=== PATIENT | male | born 1940 ===

== ENCOUNTER 2022-02-26 13:26 | Inpatient (IN) | payer MEDICARE, OTHER ==
[~2022-02-26] VITALS: Ht 165.1 cm; Wt 91.6 kg
--- NOTE | 2022-02-26 13:45 | NUR ---
Admission Note with Justification for Admission to [facility] Patient admitted to [facility] for protective oversight for emergency stabilization of acute psychiatric crisis. Pt admitted from: [facility] Mode of arrival: EMS Accompanied By: EMS Precipitating behaviors that initiated intake and admission: thinks he's being trapped in a room, anxious, bizarre thought processes, hallucinating, refusing meds & cares, convinced there was a snake in the room, agitated, grabbed nurse's hand Description of failure of out patient attempts at stabilization in previous setting list behavior and medication trials: ER & hospital stay, zyprexa PRN, physician recommending in pt mental health tx Behaviors and assessment findings upon admission: Pt irritable upon admission, but remained calm and was cooperative with assessment. Pt only wished to be left alone so he could continue sleeping. Pt has several bruises and scabs. He is oriented to self only and not very willing to answer question. Pt c/o that he's hungry because he "got no lunch". Pt was given snacks and coke per his request. He was left to rest quietly in his room. Will continue to monitor. Plan: Admit for protective oversight for adjustment and stabilization of medications, behaviors and mood. Intense treatment regimen including groups, medication adjustments, therapy, consistent regimen for ADL's, self care, and sleep hygiene. Daily monitoring by Inpatient staff, Psychiatry, and Medical Physician.
[2022-02-26] MEDS ORDERED: MAGNESIUM HYDROXIDE 2,400 MG/30 ML ORAL.SUSP. PO PRN (14:15)
[2022-02-26] MEDS ORDERED: METHYL SALICYLATE/MENTHOL TOPICAL OINTMENT 57GM TUBE. TP PRN (14:15)
[2022-02-26] MEDS ORDERED: MAG HYDROX/AL HYDROX/SIMETH 30 ML ORAL.SUSP PO PRN (14:15)
[2022-02-26] MEDS ORDERED: ENOX40DI SQ (14:51)
[2022-02-26] MEDS ORDERED: ALBU2.5V14 NEB (14:51)
[2022-02-26] MEDS ORDERED: HYDR-2155 PO (14:51)
[2022-02-26] MEDS ORDERED: METO50TA6 PO (14:51)
[2022-02-26] MEDS ORDERED: PANTOPRAZOLE PO (14:51)
[2022-02-26] MEDS ORDERED: LEVO750T5 PO (14:51)
[2022-02-26] MEDS ORDERED: IPRA3AMP29 NEB (14:51)
[2022-02-26] MEDS ORDERED: OLAN5TAB7 PO (14:51)
[2022-02-26] MEDS ORDERED: ASPIRIN PO (14:51)
[2022-02-26] MEDS ORDERED: DILT30TA26 PO (14:51)
[2022-02-26] MEDS ORDERED: NICO1PAT21 TD (14:51)
[2022-02-26] MEDS: NICOTINE 21MG PATCH. TD SCH (15:00)
[2022-02-26 15:45] VITALS: BP 135/92
[2022-02-26 15:57] LABS: CLARITY,URINE CLEAR; COLOR,URINE YELLOW; GLUCOSE,URINE NEG (NEG)
[2022-02-26 15:58] LABS: NITRITE,URINE NEG (NEG); RBC,URINE 0 /HPF (0-2); UROBILINOGEN,URINE 0.2 mg/dL (0.2 mg/dL)
[2022-02-26 16:00] LABS: BACTERIA,URINE 0 /HPF (0-FEW); SQUAMOUS EPITHELIAL CELL,UR OCC /LPF; WBC,URINE OCC /HPF (0-4)
[2022-02-26] MEDS: dilTIAZem HCL 30 MG TABLET PO SCH (17:31)
[2022-02-26] MEDS: IPRATROPIUM/ALBUTEROL 20/100mcg/INH INHALER. INH SCH ×2 (17:31→21:08)
--- NOTE | 2022-02-26 19:28 | NUR ---
Patient has been provided with Practical Counseling for tobacco cessation. It included a face to face interaction and the following was discussed: Recognizing danger situations, Developing coping skills,Basic cessation information. Will follow for discharge needs and discharge planning.
[2022-02-26] MEDS: HYDROcodone/APAP 5/325MG 1 TAB TABLET PO PRN (20:54)
[2022-02-26] MEDS: METOPROLOL TART IMMED RELEASE 50 MG TABLET PO SCH (20:54)
--- NOTE | 2022-02-26 21:30 | PDOC ---
Exam Note: Christiano Note: Please also refer to the separate dictated note~for this date of service dictated separately.~Patient seen individually. Discussed the patient with Nursing staff reviewed the chart.~Reviewed interim history and current functioning. Reviewed vital signs,~Labs/ Radiology~and current medications noted below. Continue current treatment with the changes noted in the dictated addendum note Assessment: Vital Signs/I&O: Vital Signs Date Time Temp Pulse Resp B/P (MAP) Pulse Ox O2 Delivery O2 Flow Rate FiO2 02/26/22 20:54 84 135/92 02/26/22 20:54 92 02/26/22 15:45 98.4 20 2.0 Labs: Laboratory Tests Test 02/26/22 14:50 Urine Collection Type Clean catch Urine Color Yellow Urine Clarity Clear Urine pH 7.0 Urine Specific Viola 1.015 Urine Protein Neg (NEG-TRACE) Urine Glucose (UA) Neg mg/dL (NEG) Urine Ketones (Stick) Neg mg/dL (NEG) Urine Blood Neg (NEG) Urine Nitrite Neg (NEG) Urine Bilirubin Neg (NEG) Urine Urobilinogen Dipstick 0.2 mg/dL (0.2 mg/dL) Urine Leukocyte Esterase Neg (NEG) Urine RBC 0 /HPF (0-2) Urine WBC Occ /HPF (0-4) Urine Squamous Epithelial Cells Occ /LPF Urine Bacteria 0 /HPF (0-FEW) Urine Mucus Slight /LPF Current Medications: Meds: Current Medications Medications (Trade) Dose Ordered Sig/Sameer Route PRN Reason Start Time Stop Time Status Last Admin Dose Admin Diltiazem HCl (Cardizem) 90 mg Q6HRS PO 02/26/22 18:00 02/26/22 17:31 Acetaminophen/ Hydrocodone Bitart (Lortab 5/325) 1 tab PRN Q4HRS PRN PO PAIN 02/26/22 15:45 02/26/22 20:54 Albuterol/ Ipratropium (Combivent Respimat 20-100 Mcg) 1 puff Q6HRS INH 02/26/22 18:00 02/26/22 21:08 Metoprolol Tartrate (Lopressor) 50 mg BID PO 02/26/22 21:00 02/26/22 20:54 Olanzapine (ZyPREXA ZYDIS) 5 mg PRN Q6HRS PRN PO ANXIETY / AGITATION 02/26/22 15:45 02/26/22 20:54 I have reviewed the current psychotropics carefully including drug interactions. Risk benefit ratio favors no change other than as noted in my dictated progress note. HONEY WRIGHT MD Feb 26, 2022 21:30
--- NOTE | 2022-02-27 00:39 | NUR ---
Nursing Note Pt agitated and short of breath. In his room yells intermittently that he wants a knockout pills. Pt medicated with zydis and lortab for pain at HS. Sitting on edge of bed rocking back and forth. Lungs are very coarse with crackles but sats are good 96%. Pt cites his multitude of maladies this pm, stating his main issue is narcolepsy and that we all need to understand that he becomes totally incapacitated when it strikes. PT difficult to redirect is loud and irritable, threatens to become combative. Wheel chair at the side of the bed.
--- NOTE | 2022-02-27 05:33 | NUR ---
Nursing Note Pt refused cardizem last night and this am. States "Don't wake my ass up to just take a blood pressure pill, I need more sleep and you guys are assholes, get the fuck out of here!!! " Educated patient on the consequences of refusing cardiac meds, no evidence of learning, pt rolled over and said "fuck off" and went back to sleep.
[2022-02-27 06:25] VITALS: BP 153/98
[2022-02-27 06:31] LABS: BASO % 1 % (0-3); EOS # 0.1 x10^3/uL (0.0-0.7); EOS % 2 % (0-3); HEMATOCRIT 38.7 % (39.0-53.0); HEMOGLOBIN 12.3 g/dL (13.0-17.5); LYMPH # 1.1 x10^3/uL (1.0-4.8); LYMPH % 19 % (24-48); MEAN CORPUSCULAR HEMOGLOBIN 29 pg (25-35); MEAN CORPUSCULAR HGB CONC 32 g/dL (31-37); MEAN CORPUSCULAR VOLUME 92 fL (79-100); MONO # 0.6 x10^3/uL (0.0-1.1); MONO % 11 % (0-9); NEUT # 4.1 x10^3uL (1.8-7.7); NEUT % 68 % (31-73); PLATELET COUNT 304 x10^3/uL (140-400); RED BLOOD COUNT 4.19 x10^6/uL (4.30-5.70); RED CELL DISTRIBUTION WIDTH 15.4 % (11.5-14.5)
[2022-02-27 06:48] LABS: ALBUMIN 2.5 g/dL (3.4-5.0); ALBUMIN/GLOBULIN RATIO 0.7 (1.0-1.7); CALCIUM 8.8 mg/dL (8.5-10.1); CREATININE 0.8 mg/dL (0.7-1.3); GFR 92.8; MAGNESIUM 1.7 mg/dL (1.8-2.4); POTASSIUM 3.7 mmol/L (3.5-5.1); TOTAL BILIRUBIN 0.3 mg/dL (0.2-1.0); TOTAL PROTEIN 5.9 g/dL (6.4-8.2)
[2022-02-27] MEDS: PANTOPRAZOLE 40 MG TABLET. PO SCH (08:25)
[2022-02-27] MEDS: ASPIRIN ENTERIC COATED 81 MG TABLET.DR. PO SCH (08:27)
[2022-02-27] MEDS: dilTIAZem HCL 30 MG TABLET PO SCH ×5 (08:27→20:32)
[2022-02-27] MEDS: METOPROLOL TART IMMED RELEASE 50 MG TABLET PO SCH ×2 (08:27→20:32)
[2022-02-27] MEDS: levoFLOXacin 750 MG TABLET PO SCH (08:27)
[2022-02-27] MEDS: ENOXAPARIN 40 MG/0.4 ML SYRINGE. SQ SCH (08:28)
[2022-02-27] MEDS: NICOTINE 21MG PATCH. TD SCH (08:29)
[2022-02-27] MEDS: IPRATROPIUM/ALBUTEROL 20/100mcg/INH INHALER. INH SCH ×4 (08:56→20:30)
[2022-02-27] MEDS ORDERED: NICOTINE 21MG PATCH. TD SCH (09:00)
--- NOTE | 2022-02-27 09:45 | NUR ---
ACTIVITY THERAPY ASSESSMENT completed based on notes, observation and interview. Pt was sitting in his wheelchair in his room. Pt was irritable and resistive towards assessment questions with GLAZE MIXER. GLAZE MIXER attempted to orient pt to groups offered on [facility] but remained irritable and disinterested in groups. Pt was demanding at the beginning of assessment and expressed that he was displeased with staff. Pt repeated a couple of times that he wants to leave and GLAZE MIXER assured him that this is a short term stay. Pt was not pleased with this answer. GLAZE MIXER was unable to determine pt's leisure interests as he said he would not enjoy doing anything here. Pt was able to answer orientation questions correctly. Pt reported that he has no support system. Pt remained irritable throughout assessment and requested coffee and an ensure. GLAZE MIXER will check with RN about these items. Per notes pt remains irritable, cursing at staff, and is demanding. Initial goal aimed to increase stress management and relaxation skills. Pt will participate in at least three Activity Therapy sessions before discharge.
[2022-02-27 13:12] LABS: THYROXINE 6.7 ug/dL (4.5-12.0)
[2022-02-27 14:39] VITALS: BP 136/87
[2022-02-27 14:40] VITALS: BP_SYST 112; BP_SYST 121; BP_DIAS 70; BP_DIAS 71
[2022-02-27 15:28] VITALS: BP 106/72
[2022-02-27 15:43] LABS: CHOLESTEROL/HDL RATIO 3.5; THYROID STIM HORMONE (TSH) 1.587 uIU/mL (0.358-3.740)
--- NOTE | 2022-02-27 16:01 | RAD ---
EXAM: XR HIP (WITH OR WITHOUT PELVIS)LEFT 1 VIEW, XR FEMUR_LEFT 1 VIEW 02/27/2022 2:37 PM CLINICAL INDICATION: Fall, left femur fracture COMPARISON: None TECHNIQUE: AP view of the pelvis and AP view of the left hip. AP and lateral views of the left femur . FINDINGS: Left hip: The bones are demineralized. There is a left hip prosthesis in appropriate alignment. No di splaced periprosthetic fracture. There is mild right hip joint space narrowing. The pubic symphysis a nd sacroiliac joints are unremarkable. There are interbody grafts in the lower lumbar spine. Left femur: There is a left hip prosthesis in appropriate alignment. No acute fracture. There is smog technician alissa appearing heterotopic ossification at the medial femoral neck region. Alignment at the knee is ma intained. No focal soft tissue abnormality. IMPRESSION: Left hip prosthesis. No acute osseous abnormality in left hip for left femur. Electronically signed by: Meg Erickson MD (02/27/2022 3:58 PM) [id number]
--- NOTE | 2022-02-27 16:01 | RAD ---
EXAM: XR HIP (WITH OR WITHOUT PELVIS)LEFT 1 VIEW, XR FEMUR_LEFT 1 VIEW 02/27/2022 2:37 PM CLINICAL INDICATION: Fall, left femur fracture COMPARISON: None TECHNIQUE: AP view of the pelvis and AP view of the left hip. AP and lateral views of the left femur . FINDINGS: Left hip: The bones are demineralized. There is a left hip prosthesis in appropriate alignment. No di splaced periprosthetic fracture. There is mild right hip joint space narrowing. The pubic symphysis a nd sacroiliac joints are unremarkable. There are interbody grafts in the lower lumbar spine. Left femur: There is a left hip prosthesis in appropriate alignment. No acute fracture. There is buffer chrome alissa appearing heterotopic ossification at the medial femoral neck region. Alignment at the knee is ma intained. No focal soft tissue abnormality. IMPRESSION: Left hip prosthesis. No acute osseous abnormality in left hip for left femur. Electronically signed by: Meg Erickson MD (02/27/2022 3:58 PM) [id number]
--- NOTE | 2022-02-27 16:13 | NUR ---
Nurse Day Shift Note: Pt presents in a tired manner for morning medication and assessment. Pt was falling asleep while sitting up eating breakfast. Pt ate 50% breakfast, 100% lunch. Pt has been noted to spend time resting in his room and wheeling himself in the hallways today. Pt presents with demanding communication at times. Pt is able to make needs known to staff. Pt refuses to wear his yellow socks and demands to wear the red color socks. It was explained that we do not have the red socks in his size. Pt was educated that he needs to wear his yellow socks, but refuses. Pt self-reports having narcolepsy. Pt will be speaking to you and then fall asleep mid sentence. It has been observed throughout the shift that the pt will work himself up and demand a nurse to be by his side. Pt states he is having a panic attack and needs a nurse with him. Pt was observed and therapeutically communicated with during a self-reported panic attack. Pt 's vitals are WNL. Pt slept 1.75 hours last night. Will continue to monitor.
--- NOTE | 2022-02-27 21:48 | PDOC ---
Exam Note: Christiano Note: Please also refer to the separate dictated note~for this date of service dictated separately.~Patient seen individually. Discussed the patient with Nursing staff reviewed the chart.~Reviewed interim history and current functioning. Reviewed vital signs,~Labs/ Radiology~and current medications noted below. Continue current treatment with the changes noted in the dictated addendum note Assessment: Vital Signs/I&O: Vital Signs Date Time Temp Pulse Resp B/P (MAP) Pulse Ox O2 Delivery O2 Flow Rate FiO2 02/27/22 20:32 90 155/83 02/27/22 15:28 97.9 22 94 Room Air 02/26/22 15:45 2.0 I & O 02/26/22 02/26/22 02/27/22 15:00 23:00 07:00 Intake Total 480 ml Balance 480 ml Labs: Laboratory Tests Test 02/27/22 05:52 White Blood Count 6.0 x10^3/uL (4.0-11.0) Red Blood Count 4.19 x10^6/uL (4.30-5.70) L Hemoglobin 12.3 g/dL (13.0-17.5) L Hematocrit 38.7 % (39.0-53.0) L Mean Corpuscular Volume 92 fL (79-100) Mean Corpuscular Hemoglobin 29 pg (25-35) Mean Corpuscular Hemoglobin Concent 32 g/dL (31-37) Red Cell Distribution Width 15.4 % (11.5-14.5) H Platelet Count 304 x10^3/uL (140-400) Neutrophils (%) (Auto) 68 % (31-73) Lymphocytes (%) (Auto) 19 % (24-48) L Monocytes (%) (Auto) 11 % (0-9) H Eosinophils (%) (Auto) 2 % (0-3) Basophils (%) (Auto) 1 % (0-3) Neutrophils # (Auto) 4.1 x10^3uL (1.8-7.7) Lymphocytes # (Auto) 1.1 x10^3/uL (1.0-4.8) Monocytes # (Auto) 0.6 x10^3/uL (0.0-1.1) Eosinophils # (Auto) 0.1 x10^3/uL (0.0-0.7) Basophils # (Auto) 0.0 x10^3/uL (0.0-0.2) D-Dimer (Vandana) 1.69 mg/L (0.00-0.50) H Sodium Level 141 mmol/L (136-145) Potassium Level 3.7 mmol/L (3.5-5.1) Chloride Level 107 mmol/L (98-107) Carbon Dioxide Level 25 mmol/L (21-32) Anion Gap 9 (6-14) Blood Urea Nitrogen 18 mg/dL (8-26) Creatinine 0.8 mg/dL (0.7-1.3) Estimated GFR (Cockcroft-Gault) 92.8 BUN/Creatinine Ratio 23 (6-20) H Glucose Level 95 mg/dL (70-99) Calcium Level 8.8 mg/dL (8.5-10.1) Magnesium Level 1.7 mg/dL (1.8-2.4) L Iron Level 29 ug/dL (65-175) L Total Iron Binding Capacity 233 ug/dL (250-450) L Iron Saturation 12 % (15-34) L Total Bilirubin 0.3 mg/dL (0.2-1.0) Aspartate Amino Transferase (AST) 14 U/L (15-37) L Alanine Aminotransferase (ALT) 23 U/L (16-63) Alkaline Phosphatase 112 U/L (46-116) Total Protein 5.9 g/dL (6.4-8.2) L Albumin 2.5 g/dL (3.4-5.0) L Albumin/Globulin Ratio 0.7 (1.0-1.7) L Triglycerides Level 73 mg/dL (0-150) Cholesterol Level 118 mg/dL (0-200) LDL Cholesterol, Calculated 69 mg/dL (0-100) VLDL Cholesterol, Calculated 15 mg/dL (0-40) Non-HDL Cholesterol Calculated 84 mg/dL (0-129) HDL Cholesterol 34 mg/dL (40-60) L Cholesterol/HDL Ratio 3.5 25-Hydroxy Vitamin D Total 21.1 ng/mL (30-100) L Thyroid Stimulating Hormone (TSH) 1.587 uIU/mL (0.358-3.740) Thyroxine (T4) 6.7 ug/dL (4.5-12.0) Total Triiodothyronine (TT3) 91 ng/dL (71-180) Treponema pallidum Antibody Nonreactive (Nonreactive) Current Medications: Meds: Laboratory Tests Test 02/27/22 05:52 White Blood Count 6.0 x10^3/uL Red Blood Count 4.19 x10^6/uL Hemoglobin 12.3 g/dL Hematocrit 38.7 % Mean Corpuscular Volume 92 fL Mean Corpuscular Hemoglobin 29 pg Mean Corpuscular Hemoglobin Concent 32 g/dL Red Cell Distribution Width 15.4 % Platelet Count 304 x10^3/uL Neutrophils (%) (Auto) 68 % Lymphocytes (%) (Auto) 19 % Monocytes (%) (Auto) 11 % Eosinophils (%) (Auto) 2 % Basophils (%) (Auto) 1 % Neutrophils # (Auto) 4.1 x10^3uL Lymphocytes # (Auto) 1.1 x10^3/uL Monocytes # (Auto) 0.6 x10^3/uL Eosinophils # (Auto) 0.1 x10^3/uL Basophils # (Auto) 0.0 x10^3/uL D-Dimer (Vandana) 1.69 mg/L Sodium Level 141 mmol/L Potassium Level 3.7 mmol/L Chloride Level 107 mmol/L Carbon Dioxide Level 25 mmol/L Anion Gap 9 Blood Urea Nitrogen 18 mg/dL Creatinine 0.8 mg/dL Estimated GFR (Cockcroft-Gault) 92.8 BUN/Creatinine Ratio 23 Glucose Level 95 mg/dL Calcium Level 8.8 mg/dL Magnesium Level 1.7 mg/dL Iron Level 29 ug/dL Total Iron Binding Capacity 233 ug/dL Iron Saturation 12 % Total Bilirubin 0.3 mg/dL Aspartate Amino Transf (AST/SGOT) 14 U/L Alanine Aminotransferase (ALT/SGPT) 23 U/L Alkaline Phosphatase 112 U/L Total Protein 5.9 g/dL Albumin 2.5 g/dL Albumin/Globulin Ratio 0.7 Triglycerides Level 73 mg/dL Cholesterol Level 118 mg/dL LDL Cholesterol, Calculated 69 mg/dL VLDL Cholesterol, Calculated 15 mg/dL Non-HDL Cholesterol Calculated 84 mg/dL HDL Cholesterol 34 mg/dL Cholesterol/HDL Ratio 3.5 25-Hydroxy Vitamin D Total 21.1 ng/mL Thyroid Stimulating Hormone (TSH) 1.587 uIU/mL Thyroxine (T4) 6.7 ug/dL Total Triiodothyronine 91 ng/dL Treponema pallidum Antibody Nonreactive Current Medications Medications (Trade) Dose Ordered Sig/Sameer Route PRN Reason Start Time Stop Time Status Last Admin Dose Admin Acetaminophen (Tylenol) 650 mg PRN Q6HRS PRN PO MILD PAIN / TEMP > 100.3'F 02/26/22 14:15 Multi-Ingredient Ointment (Analgesic [place]) 1 omer PRN QID PRN TP MUSCLE PAIN 02/26/22 14:15 Al Hydroxide/Mg Hydroxide (Mylanta Plus Xs) 15 ml PRN AFTMEALHC PRN PO DYSPEPSIA 02/26/22 14:15 Magnesium Hydroxide (Milk Of Magnesia) 2,400 mg PRN QHS PRN PO CONSTIPATION 02/26/22 14:15 Nicotine (Nicoderm Cq 21mg Patch) 1 patch DAILY TD 02/26/22 15:00 02/27/22 08:29 Diltiazem HCl (Cardizem) 90 mg Q6HRS PO 02/26/22 18:00 02/27/22 05:27 DC 02/26/22 17:31 Enoxaparin Sodium (Lovenox 40mg Syringe) 40 mg DAILY SQ 02/27/22 09:00 02/27/22 08:28 Acetaminophen/ Hydrocodone Bitart (Lortab 5/325) 1 tab PRN Q4HRS PRN PO PAIN 02/26/22 15:45 02/26/22 20:54 Albuterol/ Ipratropium (Combivent Respimat 20-100 Mcg) 1 puff Q6HRS INH 02/26/22 18:00 02/27/22 05:27 DC 02/26/22 21:08 Levofloxacin (Levaquin) 750 mg DAILY PO 02/27/22 09:00 03/01/22 08:59 02/27/22 08:27 Metoprolol Tartrate (Lopressor) 50 mg BID PO 02/26/22 21:00 02/27/22 20:32 Olanzapine (ZyPREXA ZYDIS) 5 mg PRN Q6HRS PRN PO ANXIETY / AGITATION 02/26/22 15:45 02/26/22 20:54 Albuterol Sulfate (Ventolin Hfa Inhaler) 1 puff PRN Q6HRS PRN INH SOA 02/26/22 16:30 Aspirin (Aspirin Enteric Coated) 162 mg DAILY PO 02/27/22 09:00 02/27/22 08:27 Pantoprazole Sodium (Protonix) 40 mg DAILYAC PO 02/27/22 07:30 02/27/22 08:25 Nicotine (Nicoderm Cq 21mg Patch) 1 patch DAILY TD 02/27/22 09:00 02/26/22 16:13 DC Diltiazem HCl (Cardizem) 90 mg QID PO 02/27/22 09:00 02/27/22 20:32 Albuterol/ Ipratropium (Combivent Respimat 20-100 Mcg) 1 puff QID INH 02/27/22 09:00 02/27/22 20:30 Current Medications Medications (Trade) Dose Ordered Sig/Sameer Route PRN Reason Start Time Stop Time Status Last Admin Dose Admin Enoxaparin Sodium (Lovenox 40mg Syringe) 40 mg DAILY SQ 02/27/22 09:00 02/27/22 08:28 Levofloxacin (Levaquin) 750 mg DAILY PO 02/27/22 09:00 03/01/22 08:59 02/27/22 08:27 Aspirin (Aspirin Enteric Coated) 162 mg DAILY PO 02/27/22 09:00 02/27/22 08:27 Pantoprazole Sodium (Protonix) 40 mg DAILYAC PO 02/27/22 07:30 02/27/22 08:25 Diltiazem HCl (Cardizem) 90 mg QID PO 02/27/22 09:00 02/27/22 20:32 Albuterol/ Ipratropium (Combivent Respimat 20-100 Mcg) 1 puff QID INH 02/27/22 09:00 02/27/22 20:30 I have reviewed the current psychotropics carefully including drug interactions. Risk benefit ratio favors no change other than as noted in my dictated progress note. HONEY WRIGHT MD Feb 27, 2022 21:48
[2022-02-27] MEDS: HYDROcodone/APAP 5/325MG 1 TAB TABLET PO PRN (22:00)
--- NOTE | 2022-02-27 23:11 | HP ---
DATE OF SERVICE: 02/27/2022 ADMIT DATE: 02/26/2022 PSYCHIATRIC ADMISSION HISTORY/EVALUATION The patient is seen evening of 02/26/2022 for this evaluation. IDENTIFYING DATA: The patient is an 81-year-old male referred to us from [facility], where he presented from [facility] where he was admitted for rehabilitation status post femur fracture. He had attempted to elope from the alf. He was then found a few days later naked with acute mental status changes. He is paranoid, delusional, anxious, agitated with bizarre thought processes. He is actively hallucinating, refusing medications and cares. He was convinced there were snakes in his room. He grabbed a nurse's hand aggressively. Behaviors were deemed dangerous, unmanageable with a significant change in his cognition and psychosis, having failed outpatient psychiatric interventions. He is referred for inpatient psychiatric stabilization. CHIEF COMPLAINT: "I am tired." HISTORY OF PRESENT ILLNESS: The patient reportedly has a past history of bipolar disorder, though he denies this. He has had significant mood swings, confusion, psychosis, sleep and appetite changes. He was methamphetamine positive on drug screen at the facility. The patient's explanation of this is that he has narcolepsy and it is possible he was being treated on stimulants for this. None of this is entirely clear and we will try and obtain those past neurology records for details and may also consider consulting Dr. Willingham, Neurology, for clarification. PAST PSYCHIATRIC HISTORY: As above. MEDICAL HISTORY: Narcolepsy, obstructive sleep apnea, CHF, pneumonia, atrial fibrillation and history of substance abuse as noted above, though this is unclear. History of DVT, status post femur fracture and chronic pain. ACCU-CHEKS: None. CODE STATUS: DNR. ALLERGIES: Negative. DIET: Mechanical soft. No straws. He likes "cokes, Coca Cola." Takes medications whole. Ambulates with walker with, 1-person assist. UA colonized UTI, on Levaquin until 03/01/2022. CURRENT PSYCHOTROPICS: Zyprexa 5 mg q. 6 hours p.r.n., psychosis and agitation. FAMILY HISTORY: Noncontributory. SOCIAL HISTORY: The patient denies alcohol, drug abuse, physical, sexual or elder abuse. He is not known to be a perpetrator though he has been aggressive, not entirely sexually however. REVIEW OF SYSTEMS: Positive for tiredness. No CV, , pulmonary, eye system symptoms on review. Ambulation impaired with walker. MENTAL STATUS EXAM: Oriented to himself, situation. Speech moderate latency. He felt he had been here about 10 days. Abstraction fair. Computation impaired. Language function intact. Quite distractible. No active suicidal or homicidal ideation. Somewhat paranoid. LABORATORY DATA: Reviewed. IMPRESSION: Probable bipolar 1 disorder, mixed with psychotic features; encephalopathy, unspecified; mild cognitive impairment versus major neurocognitive disorder, Alzheimer, vascular with delusion and depression. Rest as above. PLAN: Admit to Geropsychiatry unit at [facility]. I will see the patient daily individually from a psychiatric standpoint, medical followup, Dr. Saavedra/Dr. Welch. Continue current psychotropics. Obtain past records as noted above. Observe baseline and then determine treatment plan. May have CT head, but defer this to Dr. Willingham post-consult. ESTIMATED LENGTH OF STAY: 10-12 days. DISPOSITION PLANS: Back to alf when stable. EDWIN/MEGAN/TED DR: EDWIN/joon TID: [id number]
--- NOTE | 2022-02-28 02:08 | CONS ---
DATE OF CONSULTATION: 02/27/2022 REASON FOR CONSULTATION: Medical management. HISTORY OF PRESENT ILLNESS: The patient is an 81-year-old male patient who was basically admitted to [facility] as a transfer from [facility] in [place]. He apparently first went to [facility] for femur fracture with meth withdrawal and from there, the patient went to [facility]. Post-femur fracture, he did escape and he was then found a few days later naked with altered mental status. He was brought to [facility] in [place] where he thought he was trapped in a room, anxious, agitated, bizarre thought process, hallucinating, refusing meds and cares. Convinced that there is a snake in his room, grabbed the nurse's hand, all this in a background of bipolar mixed with psychosis; however, on questioning him further, he said that he is known to have narcolepsy and used to have amphetamine by prescription, but his insurance would not pay for it. He was admitted to [facility] for inpatient psychiatric stabilization. PAST MEDICAL HISTORY: Significant for atrial fibrillation, chronic pain syndrome, obstructive sleep apnea, narcolepsy, pneumonia, congestive heart failure. PAST PSYCHIATRIC HISTORY: Significant for bipolar disorder and history of substance use. PAST SURGICAL HISTORY: Significant for femur fracture, status post open reduction internal fixation. ALLERGIES: He has no known drug allergies. MEDICATIONS: He is currently on the following medications: He is on Combivent Respimat 1 puff 4 times a day, diltiazem 90 mg 4 times a day, aspirin 162 mg once a day, levofloxacin 750 mg once a day, Lovenox 40 mg subcutaneous daily, Protonix 40 mg once a day, metoprolol tartrate 50 mg twice a day, albuterol sulfate 1 puff every 6 hours, olanzapine 5 mg every 6 hours, hydrocodone/APAP 5/325 one tablet every 4 hours. He is on nicotine patch 21 mg transdermally once a day, milk of magnesia 30 mL p.o. daily p.r.n. for constipation, Mylanta 15 mL after meals and as needed and acetaminophen 650 mg every 6 hours. FAMILY HISTORY: Noncontributory. SOCIAL HISTORY: He apparently lives at home. He has a caregiver. He has 2 sons. He continues to smoke. Does not drink alcohol, but uses street amphetamine as he is unable to get methylphenidate for his narcolepsy according to him. PHYSICAL EXAMINATION: GENERAL: When I saw him this afternoon, he was resting slightly propped up in bed, in no apparent respiratory distress. He was pale, not jaundiced, cyanosed. No lymphadenopathy, no thyromegaly, no jugular venous distention. No lower limb edema. VITAL SIGNS: His heart rate was 72, blood pressure is 153/98, temperature 97.7, respiratory rate was 18 and oxygen saturation was 92%. HEAD, EYES, EARS, NOSE, AND THROAT: Normocephalic, atraumatic. NECK: Supple. HEART: Normal first and second heart sounds. No gallop, rub or murmur. CHEST: Clear to auscultation, no crepitation or rhonchi. ABDOMEN: Distended, soft, nontender. NEUROLOGIC: He was sleepy, but arousable, difficult sometimes to understand him, but grossly all his cranial nerves seem to be intact. He moves extremities without difficulty. He is mostly wheelchair bound, but he is able to transfer from his wheelchair to the bed without assistance. LABORATORY DATA: His lab work showed a white cell count of 6000, hemoglobin 12, hematocrit 38, MCV 92 and platelet count 304,000 with normal manual differential. Serum sodium 141, potassium 3.7, chloride 107, bicarbonate 25, anion gap of 9, BUN 18, creatinine 0.8. Estimated GFR was 92 mL per minute. His glucose was 95, calcium was 8.8, magnesium was 1.7. Total bilirubin, AST, ALT, alkaline phosphatase were normal. Total protein 5.9, albumin was 2.5 and D-dimer was 1.69. Urinalysis essentially unremarkable. ASSESSMENT AND PLAN: In summary, this is an 81-year-old male patient who apparently was transferred from [facility] in [place] on account of escaping from [facility] post-femur fracture and being found few days later naked with altered mental status. He was anxious, agitated, has bizarre thought process, hallucinating, refusing meds and cares, was convinced that there is a snake in his room, was [facility] for inpatient psychiatric stabilization. Medically, his vital signs seem to be well within normal range as well as his lab work. Of note, he stated that he was diagnosed at [facility] with narcolepsy in that night and he said that he is using amphetamine because he is unable to get a prescription for methylphenidate as his insurance would not pay for it anymore. My plan is obviously to continue with all his current medications that seems to be appropriate. He is on levofloxacin and the reason for that is not clear to me as urinalysis was essentially unremarkable. He is also on diltiazem 90 mg 4 times a day, this seems to be excessive and it can be given together in 1 capsule that extended release. I will also arrange for him to have an x-ray of his left femur to make sure that the fracture has healed. DINORAH/ANGELLA DR: Joey TID: [id number]
[2022-02-28 05:24] VITALS: BP 107/69
--- NOTE | 2022-02-28 05:30 | NUR ---
Patient is in his room on assumption of care, sitting up on the side of his bed. He is irritable, demanding and disheveled in appearance. It is very difficult to understand him due to rapid speech in a low tone of voice. He became annoyed when this nurse asked him to please slow down and repeat himself. Irritated at this nurse for not bringing applesauce for him to take his pills with, stating "Are you just too lazy to go get it?" This nurse explained to him that I was not aware he needed his pills floated, and asked if he would try to swallow them whole. He agreed and was able to do so. A short time later, patient complained of pain in his back and neck, so this nurse brought him a Lortab. He began to complain the he needs "itch pills" with Lortab and then started rambling about not belonging here. This nurse explained to him that his DIL/DPOA had signed him in, and he grumbled "She wouldn't put me in no loony bin." He is still holding his med cup with Lortab at this point, still talking about needing "itch pills." This nurse retrieved a Zydis for him to take with the pain pill. He did have difficulty swallowing the pill whole, so it was floated in applesauce. Patient slept very poorly this shift, only 2.5 hours. Will continue to monitor.
[2022-02-28 08:07] LABS: BASO % 0 % (0-3); EOS # 0.1 x10^3/uL (0.0-0.7); EOS % 2 % (0-3); HEMOGLOBIN 12.4 g/dL (13.0-17.5); LYMPH # 1.3 x10^3/uL (1.0-4.8); LYMPH % 22 % (24-48); MEAN CORPUSCULAR HEMOGLOBIN 30 pg (25-35); MEAN CORPUSCULAR HGB CONC 33 g/dL (31-37); MEAN CORPUSCULAR VOLUME 92 fL (79-100); MONO # 0.6 x10^3/uL (0.0-1.1); MONO % 11 % (0-9); NEUT # 3.7 x10^3uL (1.8-7.7); NEUT % 65 % (31-73); PLATELET COUNT 293 x10^3/uL (140-400); RED BLOOD COUNT 4.16 x10^6/uL (4.30-5.70); RED CELL DISTRIBUTION WIDTH 15.3 % (11.5-14.5); WHITE BLOOD COUNT 5.8 x10^3/uL (4.0-11.0)
[2022-02-28 08:23] LABS: ALBUMIN 2.6 g/dL (3.4-5.0); ALBUMIN/GLOBULIN RATIO 0.7 (1.0-1.7); CALCIUM 8.8 mg/dL (8.5-10.1); CREATININE 0.9 mg/dL (0.7-1.3); POTASSIUM 3.5 mmol/L (3.5-5.1); TOTAL BILIRUBIN 0.4 mg/dL (0.2-1.0); TOTAL PROTEIN 6.5 g/dL (6.4-8.2)
[2022-02-28] MEDS: ASPIRIN ENTERIC COATED 81 MG TABLET.DR. PO SCH (08:25)
[2022-02-28] MEDS: levoFLOXacin 750 MG TABLET PO SCH (08:26)
[2022-02-28] MEDS: PANTOPRAZOLE 40 MG TABLET. PO SCH (08:26)
[2022-02-28] MEDS: ENOXAPARIN 40 MG/0.4 ML SYRINGE. SQ SCH (08:27)
[2022-02-28] MEDS: NICOTINE 21MG PATCH. TD SCH (08:27)
[2022-02-28] MEDS: dilTIAZem HCL 30 MG TABLET PO SCH ×4 (08:28→20:35)
[2022-02-28] MEDS: METOPROLOL TART IMMED RELEASE 50 MG TABLET PO SCH ×2 (08:29→20:34)
--- NOTE | 2022-02-28 08:29 | PDOC ---
Exam Note: Christiano Note: This note is a late entry for 02/27/2022 covers elements not covered in my initial note. Subjective: The patient was reviewed at treatment team meeting individually in the morning on 02/27/2022 with Carlene Viveros, Zara Oates, and Aliya Mehta (social service manager), Aye, activity therapy, and Elvin ABDI, discussed and reviewed the chart. The patient slept 1-3/4 hours in the morning. Overall he is compliant with his medications. He is quite loud. He does have a past history of bipolar disorder. We will try and obtain those records. He has been demanding at times. [id number] is his power of campground caretaker. Reportedly his recent drug screen was positive for methamphetamine. Details unclear but the patient states he was diagnosed with narcolepsy and it is possible that he was prescribed amphetamines for this but it is unclear till we get those records. We will also consult Dr. Willingham for clarification, Neurology. I met with him in his room at length. 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 He does have UTI, on Levaquin. Urine is colonized. Review of Systems: Ambulation impaired. He was lying in bed after supper, covered completely. No CV, , pulmonary, eye system symptoms on review. He does appear quite tired, quite sleepy. Mental Status Exam: Patient is oriented to himself and situation. Speech has some latency, coherent. Often response is monosyllabic. Abstraction fair. Computation impaired. Language function intact. Attention span short. Mood and affect withdrawn. Laboratory Data: Reviewed. Impression: Bipolar 1 disorder, mixed with psychotic features. 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 Obstructive sleep apnea and narcolepsy. Plan: The patient remains on Zyprexa p.r.n., get past records. Neurology consult Dr. Willingham for workup on narcolepsy. We will enquire regarding his CPAP. Make further adjustments as clinically indicated. Assessment: Vital Signs/I&O: Vital Signs Date Time Temp Pulse Resp B/P (MAP) Pulse Ox O2 Delivery O2 Flow Rate FiO2 02/28/22 05:24 97.4 75 16 107/69 (82) 93 02/27/22 15:28 Room Air 02/26/22 15:45 2.0 I & O 02/27/22 02/27/22 02/28/22 15:00 23:00 07:00 Intake Total 720 ml 360 ml Balance 720 ml 360 ml Labs: Laboratory Tests Test 02/28/22 07:50 White Blood Count 5.8 x10^3/uL (4.0-11.0) Red Blood Count 4.16 x10^6/uL (4.30-5.70) L Hemoglobin 12.4 g/dL (13.0-17.5) L Hematocrit 38.0 % (39.0-53.0) L Mean Corpuscular Volume 92 fL (79-100) Mean Corpuscular Hemoglobin 30 pg (25-35) Mean Corpuscular Hemoglobin Concent 33 g/dL (31-37) Red Cell Distribution Width 15.3 % (11.5-14.5) H Platelet Count 293 x10^3/uL (140-400) Neutrophils (%) (Auto) 65 % (31-73) Lymphocytes (%) (Auto) 22 % (24-48) L Monocytes (%) (Auto) 11 % (0-9) H Eosinophils (%) (Auto) 2 % (0-3) Basophils (%) (Auto) 0 % (0-3) Neutrophils # (Auto) 3.7 x10^3uL (1.8-7.7) Lymphocytes # (Auto) 1.3 x10^3/uL (1.0-4.8) Monocytes # (Auto) 0.6 x10^3/uL (0.0-1.1) Eosinophils # (Auto) 0.1 x10^3/uL (0.0-0.7) Basophils # (Auto) 0.0 x10^3/uL (0.0-0.2) Current Medications: Meds: Current Medications Medications (Trade) Dose Ordered Sig/Sameer Route PRN Reason Start Time Stop Time Status Last Admin Dose Admin Enoxaparin Sodium (Lovenox 40mg Syringe) 40 mg DAILY SQ 02/27/22 09:00 02/27/22 08:28 Levofloxacin (Levaquin) 750 mg DAILY PO 02/27/22 09:00 03/01/22 08:59 02/27/22 08:27 Aspirin (Aspirin Enteric Coated) 162 mg DAILY PO 02/27/22 09:00 02/27/22 08:27 Diltiazem HCl (Cardizem) 90 mg QID PO 02/27/22 09:00 02/27/22 20:32 Albuterol/ Ipratropium (Combivent Respimat 20-100 Mcg) 1 puff QID INH 02/27/22 09:00 02/27/22 20:30 I have reviewed the current psychotropics carefully including drug interactions. Risk benefit ratio favors no change other than as noted in my dictated progress note. Diagnosis: Problems: (1) Bipolar disorder, current episode mixed, severe, with psychotic features (2) Major neurocognitive disorder (3) Dementia in Alzheimer's disease with delusions (4) Dementia in Alzheimer's disease with depression (5) Dementia, vascular, with delusions (6) Dementia, vascular, with depression (7) Mild cognitive impairment (8) Encephalopathy (9) Narcolepsy HONEY WRIGHT MD Feb 28, 2022 08:29
[2022-02-28] MEDS: IPRATROPIUM/ALBUTEROL 20/100mcg/INH INHALER. INH SCH ×4 (08:32→20:34)
[2022-02-28] MEDS: LACTOBACILLUS RHAMNOSUS GG 1 CAPSULE. PO SCH ×2 (09:00→20:34)
[2022-02-28 10:40] VITALS: BP 168/90
[2022-02-28 10:41] VITALS: BP 130/79
[2022-02-28 10:42] VITALS: BP 121/86
[2022-02-28] MEDS: ACETAMINOPHEN 325 MG TABLET PO PRN (13:01)
--- NOTE | 2022-02-28 14:00 | NUR ---
Request of information faxed to [facility] for information about patients Narcolepsy diagnosis and behavioral health information.
[2022-02-28 16:01] VITALS: BP 140/76
[2022-02-28] MEDS: HYDROcodone/APAP 5/325MG 1 TAB TABLET PO PRN (17:30)
--- NOTE | 2022-02-28 18:11 | NUR ---
Pt has been irritable, condescending and has had numerous complaints. Pt c/o he can't chew because his dentures are at home and they are broken. Pt has been verbally aggressive with family. Has been compliant with meds. Pt upset, stated he was thrown in this "care home". Thinks he is not going to get out of here.
--- NOTE | 2022-02-28 21:13 | RAD ---
Single view chest dated 02/28/2022 9:09 PM: COMPARISON: None Clinical Indication: Shortness of breath and wheezing. Findings: Single upright portable exam of the chest was performed. Heart size and mediastinal contours are with in normal limits. Lungs are clear. No consolidation or pleural effusion. No pneumothorax. Elevation o f right hemidiaphragm. Prominent hiatal hernia. Impression: 1. No acute radiographic abnormality. 2. Hiatal hernia. Electronically signed by: Kushal Gibson MD (02/28/2022 9:11 PM) ETHAN
--- NOTE | 2022-02-28 22:09 | PDOC ---
Exam Note: Christiano Note: Please also refer to the separate dictated note~for this date of service dictated separately.~Patient seen individually. Discussed the patient with Nursing staff reviewed the chart.~Reviewed interim history and current functioning. Reviewed vital signs,~Labs/ Radiology~and current medications noted below. Continue current treatment with the changes noted in the dictated addendum note Assessment: Vital Signs/I&O: Vital Signs Date Time Temp Pulse Resp B/P (MAP) Pulse Ox O2 Delivery O2 Flow Rate FiO2 02/28/22 20:35 92 140/76 02/28/22 16:01 97.6 22 96 02/27/22 15:28 Room Air 02/26/22 15:45 2.0 I & O 02/27/22 02/27/22 02/28/22 15:00 23:00 07:00 Intake Total 720 ml 360 ml Balance 720 ml 360 ml Labs: Laboratory Tests Test 02/28/22 07:50 White Blood Count 5.8 x10^3/uL (4.0-11.0) Red Blood Count 4.16 x10^6/uL (4.30-5.70) L Hemoglobin 12.4 g/dL (13.0-17.5) L Hematocrit 38.0 % (39.0-53.0) L Mean Corpuscular Volume 92 fL (79-100) Mean Corpuscular Hemoglobin 30 pg (25-35) Mean Corpuscular Hemoglobin Concent 33 g/dL (31-37) Red Cell Distribution Width 15.3 % (11.5-14.5) H Platelet Count 293 x10^3/uL (140-400) Neutrophils (%) (Auto) 65 % (31-73) Lymphocytes (%) (Auto) 22 % (24-48) L Monocytes (%) (Auto) 11 % (0-9) H Eosinophils (%) (Auto) 2 % (0-3) Basophils (%) (Auto) 0 % (0-3) Neutrophils # (Auto) 3.7 x10^3uL (1.8-7.7) Lymphocytes # (Auto) 1.3 x10^3/uL (1.0-4.8) Monocytes # (Auto) 0.6 x10^3/uL (0.0-1.1) Eosinophils # (Auto) 0.1 x10^3/uL (0.0-0.7) Basophils # (Auto) 0.0 x10^3/uL (0.0-0.2) Sodium Level 141 mmol/L (136-145) Potassium Level 3.5 mmol/L (3.5-5.1) Chloride Level 108 mmol/L (98-107) H Carbon Dioxide Level 26 mmol/L (21-32) Anion Gap 7 (6-14) Blood Urea Nitrogen 16 mg/dL (8-26) Creatinine 0.9 mg/dL (0.7-1.3) Estimated GFR (Cockcroft-Gault) 81.0 BUN/Creatinine Ratio 18 (6-20) Glucose Level 91 mg/dL (70-99) Calcium Level 8.8 mg/dL (8.5-10.1) Total Bilirubin 0.4 mg/dL (0.2-1.0) Aspartate Amino Transferase (AST) 16 U/L (15-37) Alanine Aminotransferase (ALT) 21 U/L (16-63) Alkaline Phosphatase 108 U/L (46-116) Total Protein 6.5 g/dL (6.4-8.2) Albumin 2.6 g/dL (3.4-5.0) L Albumin/Globulin Ratio 0.7 (1.0-1.7) L Current Medications: Meds: Current Medications Medications (Trade) Dose Ordered Sig/Sameer Route PRN Reason Start Time Stop Time Status Last Admin Dose Admin Lactobacillus Rhamnosus (Culturelle) 1 cap BID PO 02/28/22 09:00 02/28/22 20:34 I have reviewed the current psychotropics carefully including drug interactions. Risk benefit ratio favors no change other than as noted in my dictated progress note. Diagnosis: Problems: (1) Narcolepsy (2) Encephalopathy (3) Mild cognitive impairment (4) Dementia, vascular, with depression (5) Dementia, vascular, with delusions (6) Bipolar disorder, current episode mixed, severe, with psychotic features (7) Dementia in Alzheimer's disease with depression (8) Dementia in Alzheimer's disease with delusions (9) Major neurocognitive disorder HONEY WRIGHT MD Feb 28, 2022 22:09
[2022-03-01] MEDS: ACETAMINOPHEN 325 MG TABLET PO PRN (01:52)
[2022-03-01] MEDS: HYDROcodone/APAP 5/325MG 1 TAB TABLET PO PRN (04:28)
[2022-03-01 06:45] VITALS: BP 129/72
[2022-03-01] MEDS: ASPIRIN ENTERIC COATED 81 MG TABLET.DR. PO SCH (07:59)
[2022-03-01] MEDS: METOPROLOL TART IMMED RELEASE 50 MG TABLET PO SCH ×3 (07:59→22:43)
[2022-03-01] MEDS: PANTOPRAZOLE 40 MG TABLET. PO SCH (07:59)
[2022-03-01] MEDS: NICOTINE 21MG PATCH. TD SCH (08:00)
[2022-03-01] MEDS: LACTOBACILLUS RHAMNOSUS GG 1 CAPSULE. PO SCH ×3 (08:00→22:42)
[2022-03-01] MEDS: dilTIAZem HCL 30 MG TABLET PO SCH ×5 (08:00→22:37)
[2022-03-01] MEDS: IPRATROPIUM/ALBUTEROL 20/100mcg/INH INHALER. INH SCH ×6 (08:01→22:37)
[2022-03-01] MEDS: QUEtiapine 25 MG TABLET. PO SCH ×3 (08:01→16:18)
[2022-03-01] MEDS: ENOXAPARIN 40 MG/0.4 ML SYRINGE. SQ SCH (08:01)
--- NOTE | 2022-03-01 08:35 | PDOC ---
Exam Note: Christiano Note: This note is a late entry for 02/28/2022 covers elements not covered in my initial note. Subjective: The patient was seen individually on 02/28/2022, discussed and reviewed the chart with Terence BEATTY. The patient slept 2-1/2 hours in the morning. He has been quite irritable, grumpy with mood lability. He has been picking at staff, insulting to a staff, demanding. Lungs have some crackles, history of respiratory failure. We will defer to Dr. Saavedra. Chest x-ray has been repeated. He has had some orthostatic blood pressure changes, defer to Dr Saavedra. His past history and records were reviewed including patient admitting that he had bought methamphetamine off the street for his narcolepsy because his prescription was not being paid by the insurance company. Nevertheless his drug screen was positive for benzodiazepines and marijuana in addition. He continues to have mood lability consistent with his bipolar. Review of Systems: Ambulation impaired. No CV, , pulmonary, eye system symptoms on review. Mental Status Exam: Patient is oriented to himself and situation. He is quite irritable, anxious, labile, demanding to call his family. Staff will try and accommodate this. Speech has some latency, coherent. Often response is monosyllabic. Abstraction fair. Computation impaired. Language function intact. Attention span short. Mood and affect remains anxious, labile. Laboratory Data: Reviewed. Impression: Bipolar 1 disorder, mixed with psychotic features. 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 Obstructive sleep apnea and narcolepsy. Plan: Given his diagnosis of bipolar disorder, ongoing mood lability and irritability, we will start Seroquel 25 mg 9 a.m., 1 p.m. 5 p.m. Rest unchanged for now per initial note. Reviewed drug interactions and risk-benefit ratio. Assessment: Vital Signs/I&O: Vital Signs Date Time Temp Pulse Resp B/P (MAP) Pulse Ox O2 Delivery O2 Flow Rate FiO2 03/01/22 08:00 83 129/72 03/01/22 06:45 98.1 20 95 Room Air 02/26/22 15:45 2.0 I & O 02/28/22 02/28/22 03/01/22 15:00 23:00 07:00 Intake Total 240 ml 180 ml Balance 240 ml 180 ml Current Medications: Meds: Current Medications Medications (Trade) Dose Ordered Sig/Sameer Route PRN Reason Start Time Stop Time Status Last Admin Dose Admin Lactobacillus Rhamnosus (Culturelle) 1 cap BID PO 02/28/22 09:00 03/01/22 08:00 Quetiapine Fumarate (SEROquel) 25 mg 0900,1300,1700 PO 03/01/22 09:00 03/01/22 08:01 I have reviewed the current psychotropics carefully including drug interactions. Risk benefit ratio favors no change other than as noted in my dictated progress note. Diagnosis: Problems: (1) Narcolepsy (2) Encephalopathy (3) Mild cognitive impairment (4) Dementia, vascular, with depression (5) Dementia, vascular, with delusions (6) Bipolar disorder, current episode mixed, severe, with psychotic features (7) Dementia in Alzheimer's disease with depression (8) Dementia in Alzheimer's disease with delusions (9) Major neurocognitive disorder HONEY WRIGHT MD Mar 01, 2022 08:35
--- NOTE | 2022-03-01 10:35 | NUR ---
Pt irritable and demanding this morning. He is compliant with medications floated in applesauce, however he required much encouragement and request that he sit up to take the medications. Assessment was difficult d/t pt being fixated on his list of current complaints: generic dissatisfaction during security shift supervisor, the way his breakfast tray was placed on the table, how he didn't have "enough" syrup for his Spanish toast, how he didn't have a pop with his breakfast. When asked if he was having SI he replied not currently but did the previous night d/t his unhappiness during the shift. Pt denies VH/AH, no c/o pain at this time. Pt absent of disruptive behaviors so far this shift. Extra syrup and pop provided with his breakfast so he could complete his meal, which he did so at 100%. He remains withdrawn to room and does not go out of his way to interact with staff or peers. Plan of care continues, will pass to next shift.
[2022-03-01 12:18] VITALS: BP 108/74
--- NOTE | 2022-03-01 15:23 | NUR ---
Pt's bedding was found to be soiled with urine. CNAs removed bedding to be washed, but new blankets/sheets were not put on d\t pt's demonstrated behavior of laying in bed and urinating despite ability to self toilet and use bedside urinal. Pt is not happy that his bed is unmade, and so he stripped naked and wheeled himself out into the hallway in protest to try to get his bed made.
[2022-03-01 15:30] VITALS: BP 107/64
[2022-03-01 15:31] VITALS: BP 109/73
[2022-03-01 15:32] VITALS: BP 134/97
--- NOTE | 2022-03-01 15:44 | NUR ---
Pt's 03/01/22 orthostats: Standing 107/64, sitting 109/73, Standing 134/97. Pt became elevated in agitation and anger at staff during assessment and was verbally argumentative to staff.
[2022-03-01 15:57] VITALS: BP 115/66
--- NOTE | 2022-03-01 16:50 | NUR ---
Pt in a deep sleep in w/c when approached by nurse for 1700 meds. Vigorous shaking of arm and calling of his name would not wake him, he continued to be in a deep state of sleep and snoring loudly. As this nurse walked approx 15 ft pt could be heard waking and talking. I reproached him quickly and explained that I had medications floated in applesauce. He opened his mouth to accept the spoon and once his mouth closed on the spoon he closed his eyes, leaned forward, and began to snore loudly...with the applesauce dripping out of his mouth. I once again vigorously shook him and called his name...but he continued to snore loudly in a deep sleep state. The last of the applesauce was cleaned out of his mouth to prevent choking. As I walked away again I heard him wake up. I reproached him to give him the last of the medication, this time talking loudly during administration. The administration was able to be completed and he fell back asleep in his w/c.
[2022-03-01] MEDS ORDERED: dilTIAZem HCL 30 MG TABLET PO SCH (17:00)
[2022-03-01] MEDS: MIRTAZAPINE 7.5 MG TABLET. PO SCH ×2 (21:46→22:43)
--- NOTE | 2022-03-01 22:00 | NUR ---
Patient was in his bed and refused his HS medications. Education was provided regarding the need to take his cardiac medications, he swore at the nurse and told her to get out of the room. Patient has been in bed since shift change and appears to be sleeping, he did not get any sleep last night. Medications charted as refused. Will continue to monitor.
--- NOTE | 2022-03-01 22:00 | PDOC ---
Exam Note: Christiano Note: Please also refer to the separate dictated note~for this date of service dictated separately.~Patient seen individually. Discussed the patient with Nursing staff reviewed the chart.~Reviewed interim history and current functioning. Reviewed vital signs,~Labs/ Radiology~and current medications noted below. Continue current treatment with the changes noted in the dictated addendum note Assessment: Vital Signs/I&O: Vital Signs Date Time Temp Pulse Resp B/P (MAP) Pulse Ox O2 Delivery O2 Flow Rate FiO2 03/01/22 21:44 91 145/71 03/01/22 15:57 97.7 18 93 03/01/22 12:18 Room Air 02/26/22 15:45 2.0 I & O 02/28/22 02/28/22 03/01/22 15:00 23:00 07:00 Intake Total 240 ml 180 ml Balance 240 ml 180 ml Current Medications: Meds: Current Medications Medications (Trade) Dose Ordered Sig/Sameer Route PRN Reason Start Time Stop Time Status Last Admin Dose Admin Acetaminophen (Tylenol) 650 mg PRN Q6HRS PRN PO MILD PAIN / TEMP > 100.3'F 02/26/22 14:15 03/01/22 01:52 Multi-Ingredient Ointment (Analgesic [place]) 1 omer PRN QID PRN TP MUSCLE PAIN 02/26/22 14:15 Al Hydroxide/Mg Hydroxide (Mylanta Plus Xs) 15 ml PRN AFTMEALHC PRN PO DYSPEPSIA 02/26/22 14:15 Magnesium Hydroxide (Milk Of Magnesia) 2,400 mg PRN QHS PRN PO CONSTIPATION 02/26/22 14:15 Nicotine (Nicoderm Cq 21mg Patch) 1 patch DAILY TD 02/26/22 15:00 03/01/22 08:00 Diltiazem HCl (Cardizem) 90 mg Q6HRS PO 02/26/22 18:00 02/27/22 05:27 DC 02/26/22 17:31 Enoxaparin Sodium (Lovenox 40mg Syringe) 40 mg DAILY SQ 02/27/22 09:00 03/01/22 08:01 Acetaminophen/ Hydrocodone Bitart (Lortab 5/325) 1 tab PRN Q4HRS PRN PO MOD-SEV PAIN 02/26/22 15:45 02/28/22 17:30 Albuterol/ Ipratropium (Combivent Respimat 20-100 Mcg) 1 puff Q6HRS INH 02/26/22 18:00 02/27/22 05:27 DC 02/26/22 21:08 Levofloxacin (Levaquin) 750 mg DAILY PO 02/27/22 09:00 03/01/22 08:59 DC 02/28/22 08:26 Metoprolol Tartrate (Lopressor) 50 mg BID PO 02/26/22 21:00 03/01/22 21:43 Olanzapine (ZyPREXA ZYDIS) 5 mg PRN Q6HRS PRN PO ANXIETY / AGITATION 02/26/22 15:45 02/28/22 23:00 Albuterol Sulfate (Ventolin Hfa Inhaler) 1 puff PRN Q6HRS PRN INH SOA 02/26/22 16:30 Aspirin (Aspirin Enteric Coated) 162 mg DAILY PO 02/27/22 09:00 03/01/22 07:59 Pantoprazole Sodium (Protonix) 40 mg DAILYAC PO 02/27/22 07:30 03/01/22 07:59 Nicotine (Nicoderm Cq 21mg Patch) 1 patch DAILY TD 02/27/22 09:00 02/26/22 16:13 DC Diltiazem HCl (Cardizem) 90 mg QID PO 02/27/22 09:00 03/01/22 16:54 DC 03/01/22 16:19 Albuterol/ Ipratropium (Combivent Respimat 20-100 Mcg) 1 puff QID INH 02/27/22 09:00 03/01/22 21:46 Lactobacillus Rhamnosus (Culturelle) 1 cap BID PO 02/28/22 09:00 03/01/22 21:43 Quetiapine Fumarate (SEROquel) 25 mg 0900,1300,1700 PO 03/01/22 09:00 03/01/22 16:18 Diltiazem HCl (Cardizem) 60 mg QID PO 03/01/22 17:00 03/01/22 17:02 DC Cetirizine HCl (ZyrTEC) 10 mg DAILY PO 03/02/22 09:00 Diltiazem HCl (Cardizem) 60 mg QID PO 03/01/22 21:00 03/01/22 21:44 Mirtazapine (Remeron) 7.5 mg QHS PO 03/01/22 21:00 03/01/22 21:46 Current Medications Medications (Trade) Dose Ordered Sig/Sameer Route PRN Reason Start Time Stop Time Status Last Admin Dose Admin Quetiapine Fumarate (SEROquel) 25 mg 0900,1300,1700 PO 03/01/22 09:00 03/01/22 16:18 Diltiazem HCl (Cardizem) 60 mg QID PO 03/01/22 21:00 03/01/22 21:44 Mirtazapine (Remeron) 7.5 mg QHS PO 03/01/22 21:00 03/01/22 21:46 I have reviewed the current psychotropics carefully including drug interactions. Risk benefit ratio favors no change other than as noted in my dictated progress note. 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
--- NOTE | 2022-03-02 00:48 | NUR ---
Patient is now awake and has been yelling loudly. He told nurse that he has been "tied to the wheelchair" and that he will "throw himself from the bed if we put the siderail up again" fall education provided and patient was assured that he is not tied to the chair. Will continue to monitor.
--- NOTE | 2022-03-02 05:44 | NUR ---
Patient is irritable and demanding this morning. He called the tech "an [employer]" and is angry because he cannot have a coke right now at 0530. He stated that because he has narcolepsy, he operates on a different schedule and should be allowed to have coke when he wants it.
[2022-03-02 06:40] VITALS: BP 154/89
[2022-03-02] MEDS: NICOTINE 21MG PATCH. TD SCH (08:05)
[2022-03-02] MEDS: dilTIAZem HCL 30 MG TABLET PO SCH ×4 (08:06→21:55)
[2022-03-02] MEDS: QUEtiapine 25 MG TABLET. PO SCH ×3 (08:07→17:25)
[2022-03-02] MEDS: ASPIRIN ENTERIC COATED 81 MG TABLET.DR. PO SCH (08:07)
[2022-03-02] MEDS: CETIRIZINE HCL 10 MG TABLET PO SCH (08:07)
[2022-03-02] MEDS: LACTOBACILLUS RHAMNOSUS GG 1 CAPSULE. PO SCH ×2 (08:07→21:49)
[2022-03-02] MEDS: PANTOPRAZOLE 40 MG TABLET. PO SCH (08:08)
[2022-03-02] MEDS: METOPROLOL TART IMMED RELEASE 50 MG TABLET PO SCH ×2 (08:08→21:53)
[2022-03-02] MEDS: ENOXAPARIN 40 MG/0.4 ML SYRINGE. SQ SCH (08:09)
[2022-03-02] MEDS: IPRATROPIUM/ALBUTEROL 20/100mcg/INH INHALER. INH SCH ×4 (09:00→21:49)
--- NOTE | 2022-03-02 09:41 | PDOC ---
Exam Note: Christiano Note: This note is a late entry for 03/01/2022 covers elements not covered in my initial note. Subjective: The patient was seen individually on 03/01/2022, discussed and reviewed the chart with Raquel BEATTY. The patient did not sleep at all last night. We will start Remeron 7.5 mg h.s. He was rude at night, having auditory hallucinations, insists on having Lortab the night before he goes to bed. Dr. Willingham, Neurology saw him for the possible narcolepsy and records from the [facility] are awaited. He is tolerating Seroquel 25 mg 9 a.m., 1 p.m. and 5 p.m. Review of Systems: Impaired ambulation, in wheelchair. No CV, , pulmonary, eye system symptoms on review. Positive for tiredness. Mental Status Exam: Patient is oriented to himself and situation. He was somewhat sedated not very verbally interactive, less intrusive. Speech has some latency, coherent. Often response is monosyllabic. Abstraction fair. Computation impaired. Language function intact. Attention span short. Mood and affect remains anxious, labile. Laboratory Data: Reviewed. Impression: Bipolar 1 disorder, mixed with psychotic features. 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 Obstructive sleep apnea and narcolepsy. Plan: Continue psychotropics unchanged. Reviewed drug interactions and risk-benefit ratio. Assessment: Vital Signs/I&O: Vital Signs Date Time Temp Pulse Resp B/P (MAP) Pulse Ox O2 Delivery O2 Flow Rate FiO2 03/02/22 08:08 64 154/89 03/02/22 06:40 97.5 24 90 03/01/22 12:18 Room Air 02/26/22 15:45 2.0 I & O 03/01/22 03/01/22 03/02/22 15:00 23:00 07:00 Intake Total 320 ml 200 ml Balance 320 ml 200 ml Current Medications: Meds: Current Medications Medications (Trade) Dose Ordered Sig/Sameer Route PRN Reason Start Time Stop Time Status Last Admin Dose Admin Cetirizine HCl (ZyrTEC) 10 mg DAILY PO 03/02/22 09:00 03/02/22 08:07 Diltiazem HCl (Cardizem) 60 mg QID PO 03/01/22 21:00 03/02/22 08:06 I have reviewed the current psychotropics carefully including drug interactions. Risk benefit ratio favors no change other than as noted in my dictated progress note. 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
--- NOTE | 2022-03-02 11:59 | NUR ---
Pt is agitated, with angry outbursts, yells at staff. No signs of psychosis, no A/V hallucination noted. Denies HI/SI. Slept during the day, ate 60% of breakfast. Pt refused offer of O2 as per MD order. "Oxygen Does not help me!". Will continue to monitor for safety.
[2022-03-02] MEDS: ALBUTEROL SULFATE 8GM INHALER. INH PRN (12:53)
--- NOTE | 2022-03-02 15:56 | NUR ---
Pt refused orthostatic vitals taken.
[2022-03-02 16:01] VITALS: BP 104/67
--- NOTE | 2022-03-02 19:25 | NUR ---
Request for information with Authorization for Release of Information regarding patients narcolepsy diagnosis sent to [facility] by fax.
--- NOTE | 2022-03-02 21:25 | PDOC ---
Exam Note: Christiano Note: Please also refer to the separate dictated note~for this date of service dictated separately.~Patient seen individually. Discussed the patient with Nursing staff reviewed the chart.~Reviewed interim history and current functioning. Reviewed vital signs,~Labs/ Radiology~and current medications noted below. Continue current treatment with the changes noted in the dictated addendum note Assessment: Vital Signs/I&O: Vital Signs Date Time Temp Pulse Resp B/P (MAP) Pulse Ox O2 Delivery O2 Flow Rate FiO2 03/02/22 17:25 68 104/67 03/02/22 16:01 97.1 18 98 03/01/22 12:18 Room Air 02/26/22 15:45 2.0 I & O 03/01/22 03/01/22 03/02/22 15:00 23:00 07:00 Intake Total 320 ml 200 ml Balance 320 ml 200 ml Labs: Laboratory Tests Test 03/02/22 11:00 POC SARS CoV-2 Antigen Negative (NEGATIVE) Current Medications: Meds: Laboratory Tests Test 03/02/22 11:00 POC SARS CoV-2 Antigen Negative Current Medications Medications (Trade) Dose Ordered Sig/Sameer Route PRN Reason Start Time Stop Time Status Last Admin Dose Admin Acetaminophen (Tylenol) 650 mg PRN Q6HRS PRN PO MILD PAIN / TEMP > 100.3'F 02/26/22 14:15 03/01/22 01:52 Multi-Ingredient Ointment (Analgesic [place]) 1 omer PRN QID PRN TP MUSCLE PAIN 02/26/22 14:15 Al Hydroxide/Mg Hydroxide (Mylanta Plus Xs) 15 ml PRN AFTMEALHC PRN PO DYSPEPSIA 02/26/22 14:15 Magnesium Hydroxide (Milk Of Magnesia) 2,400 mg PRN QHS PRN PO CONSTIPATION 02/26/22 14:15 Nicotine (Nicoderm Cq 21mg Patch) 1 patch DAILY TD 02/26/22 15:00 03/02/22 08:05 Diltiazem HCl (Cardizem) 90 mg Q6HRS PO 02/26/22 18:00 02/27/22 05:27 DC 02/26/22 17:31 Enoxaparin Sodium (Lovenox 40mg Syringe) 40 mg DAILY SQ 02/27/22 09:00 03/02/22 08:09 Acetaminophen/ Hydrocodone Bitart (Lortab 5/325) 1 tab PRN Q4HRS PRN PO MOD-SEV PAIN 02/26/22 15:45 02/28/22 17:30 Albuterol/ Ipratropium (Combivent Respimat 20-100 Mcg) 1 puff Q6HRS INH 02/26/22 18:00 02/27/22 05:27 DC 02/26/22 21:08 Levofloxacin (Levaquin) 750 mg DAILY PO 02/27/22 09:00 03/01/22 08:59 DC 02/28/22 08:26 Metoprolol Tartrate (Lopressor) 50 mg BID PO 02/26/22 21:00 03/02/22 08:08 Olanzapine (ZyPREXA ZYDIS) 5 mg PRN Q6HRS PRN PO ANXIETY / AGITATION 02/26/22 15:45 02/28/22 23:00 Albuterol Sulfate (Ventolin Hfa Inhaler) 1 puff PRN Q6HRS PRN INH SOA 02/26/22 16:30 03/02/22 12:53 Aspirin (Aspirin Enteric Coated) 162 mg DAILY PO 02/27/22 09:00 03/02/22 08:07 Pantoprazole Sodium (Protonix) 40 mg DAILYAC PO 02/27/22 07:30 03/02/22 08:08 Nicotine (Nicoderm Cq 21mg Patch) 1 patch DAILY TD 02/27/22 09:00 02/26/22 16:13 DC Diltiazem HCl (Cardizem) 90 mg QID PO 02/27/22 09:00 03/01/22 16:54 DC 03/01/22 16:19 Albuterol/ Ipratropium (Combivent Respimat 20-100 Mcg) 1 puff QID INH 02/27/22 09:00 03/02/22 17:25 Lactobacillus Rhamnosus (Culturelle) 1 cap BID PO 02/28/22 09:00 03/02/22 08:07 Quetiapine Fumarate (SEROquel) 25 mg 0900,1300,1700 PO 03/01/22 09:00 03/02/22 17:25 Diltiazem HCl (Cardizem) 60 mg QID PO 03/01/22 17:00 03/01/22 17:02 DC Cetirizine HCl (ZyrTEC) 10 mg DAILY PO 03/02/22 09:00 03/02/22 08:07 Diltiazem HCl (Cardizem) 60 mg QID PO 03/01/22 21:00 03/02/22 17:25 Mirtazapine (Remeron) 7.5 mg QHS PO 03/01/22 21:00 Sertraline HCl (Zoloft) 25 mg DAILY PO 03/03/22 09:00 Current Medications Medications (Trade) Dose Ordered Sig/Sameer Route PRN Reason Start Time Stop Time Status Last Admin Dose Admin Cetirizine HCl (ZyrTEC) 10 mg DAILY PO 03/02/22 09:00 03/02/22 08:07 I have reviewed the current psychotropics carefully including drug interactions. Risk benefit ratio favors no change other than as noted in my dictated progress note. 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
[2022-03-02 21:51] VITALS: BP 123/72
[2022-03-02] MEDS: MIRTAZAPINE 7.5 MG TABLET. PO SCH (21:56)
--- NOTE | 2022-03-02 22:57 | PDOC ---
Exam Note: Christiano Note: This note is for 03/02/2022 covers elements not covered in my initial note. Subjective: The patient was seen individually on 03/02/2022, discussed and reviewed the chart with Josh BEATTY. The patient slept 3 hours previous night. He has been angry, demanding, refusing things at times. He still has significant narcolepsy symptoms and we are obtaining records from the [facility] and he states additional records may be obtained from Dr. Romano office in [place], [place]. Nursing staff will attempt to arrange this. I met with him at length in his room. Review of Systems: Impaired ambulation, in wheelchair. No CV, , pulmonary, eye system symptoms on review. He complains of sleepiness and tiredness. Mental Status Exam: Patient is oriented to himself and situation. Speech coherent. Often response is monosyllabic. Abstraction fair. Computation impaired. Language function intact. Attention span short. Mood and affect somewhat anxious, labile, grandiose at times. Laboratory Data: Reviewed. Impression: Bipolar 1 disorder, mixed with psychotic features. 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 Obstructive sleep apnea and narcolepsy. Plan: Continue psychotropics unchanged. Reviewed drug interactions and risk- benefit ratio. Start Zoloft 25 mg a day for his mood and anxiety symptoms. Treat the narcolepsy. The patient states in the past it had been recommended at the [facility] that he would be on Dexedrine Spansule 15 mg three times a day. Start Zoloft 25 mg a day. Assessment: Vital Signs/I&O: Vital Signs Date Time Temp Pulse Resp B/P (MAP) Pulse Ox O2 Delivery O2 Flow Rate FiO2 03/02/22 21:55 78 123/72 03/02/22 21:51 93 03/02/22 16:01 97.1 18 03/01/22 12:18 Room Air 02/26/22 15:45 2.0 I & O 03/01/22 03/01/22 03/02/22 15:00 23:00 07:00 Intake Total 320 ml 200 ml Balance 320 ml 200 ml Labs: Laboratory Tests Test 03/02/22 11:00 POC SARS CoV-2 Antigen Negative (NEGATIVE) Current Medications: Meds: Current Medications Medications (Trade) Dose Ordered Sig/Sameer Route PRN Reason Start Time Stop Time Status Last Admin Dose Admin Cetirizine HCl (ZyrTEC) 10 mg DAILY PO 03/02/22 09:00 03/02/22 08:07 I have reviewed the current psychotropics carefully including drug interactions. Risk benefit ratio favors no change other than as noted in my dictated progress note. 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
[2022-03-03] MEDS: ACETAMINOPHEN 325 MG TABLET PO PRN ×2 (00:45→22:51)
--- NOTE | 2022-03-03 03:03 | NUR ---
Pt is sitting in his room this evening, irritable and rude with staff. Denies SI/HI thoughts. Rated pain at 9 "all over". Has mumbling speech, difficult to understand. Noted SOB, wheezing. Pulse ox check in the evening 96%. Blood pressure rechecked this evening, 123/72. EKG done per RT. Compliant in taking HS medication but refused to wear oxygen at HS stating, "It doesn't do any good." Given Tylenol 650 mg at 0045 for leg pain rated 9. Asleep within the hour.
--- NOTE | 2022-03-03 03:27 | EKG ---
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
[2022-03-03 06:06] VITALS: BP 118/79
[2022-03-03] MEDS: dilTIAZem HCL 30 MG TABLET PO SCH ×4 (08:54→20:04)
[2022-03-03] MEDS: QUEtiapine 25 MG TABLET. PO SCH ×3 (08:55→17:22)
[2022-03-03] MEDS: NICOTINE 21MG PATCH. TD SCH (08:55)
[2022-03-03] MEDS: CETIRIZINE HCL 10 MG TABLET PO SCH (08:55)
[2022-03-03] MEDS: ASPIRIN ENTERIC COATED 81 MG TABLET.DR. PO SCH (08:55)
[2022-03-03] MEDS: LACTOBACILLUS RHAMNOSUS GG 1 CAPSULE. PO SCH ×2 (08:56→20:04)
[2022-03-03] MEDS: PANTOPRAZOLE 40 MG TABLET. PO SCH (08:56)
[2022-03-03] MEDS: ENOXAPARIN 40 MG/0.4 ML SYRINGE. SQ SCH (08:57)
[2022-03-03] MEDS: METOPROLOL TART IMMED RELEASE 50 MG TABLET PO SCH ×2 (08:57→20:04)
[2022-03-03] MEDS: IPRATROPIUM/ALBUTEROL 20/100mcg/INH INHALER. INH SCH ×4 (08:58→20:03)
[2022-03-03] MEDS: SERTRALINE 25 MG TABLET. PO SCH (09:42)
--- NOTE | 2022-03-03 13:41 | NUR ---
pt is agitated and verbally aggressive with staff. pt was cussing at nursing staff this am during med pass. pt is compliant with medications. pt was anxious and was given zydis 5 mg. pt has calmed down since medication administration. pt in hallway at this time asking for snacks and drinks. pt is not participating in group today.
[2022-03-03 16:11] VITALS: BP 128/72
--- NOTE | 2022-03-03 16:25 | NUR ---
call placed [facility] for pt's records.
[2022-03-03] MEDS: MIRTAZAPINE 7.5 MG TABLET. PO SCH (20:03)
--- NOTE | 2022-03-03 21:45 | PDOC ---
Exam Note: Christiano Note: Please also refer to the separate dictated note~for this date of service dictated separately.~Patient seen individually. Discussed the patient with Nursing staff reviewed the chart.~Reviewed interim history and current functioning. Reviewed vital signs,~Labs/ Radiology~and current medications noted below. Continue current treatment with the changes noted in the dictated addendum note Assessment: Vital Signs/I&O: Vital Signs Date Time Temp Pulse Resp B/P (MAP) Pulse Ox O2 Delivery O2 Flow Rate FiO2 03/03/22 20:04 72 128/72 03/03/22 16:11 97.5 20 93 03/01/22 12:18 Room Air 02/26/22 15:45 2.0 I & O 03/02/22 03/02/22 03/03/22 14:59 22:59 06:59 Intake Total 240 ml 480 ml Balance 240 ml 480 ml Current Medications: Meds: Current Medications Medications (Trade) Dose Ordered Sig/Sameer Route PRN Reason Start Time Stop Time Status Last Admin Dose Admin Acetaminophen (Tylenol) 650 mg PRN Q6HRS PRN PO MILD PAIN / TEMP > 100.3'F 02/26/22 14:15 03/03/22 00:45 Multi-Ingredient Ointment (Analgesic [place]) 1 omer PRN QID PRN TP MUSCLE PAIN 02/26/22 14:15 Al Hydroxide/Mg Hydroxide (Mylanta Plus Xs) 15 ml PRN AFTMEALHC PRN PO DYSPEPSIA 02/26/22 14:15 Magnesium Hydroxide (Milk Of Magnesia) 2,400 mg PRN QHS PRN PO CONSTIPATION 02/26/22 14:15 Nicotine (Nicoderm Cq 21mg Patch) 1 patch DAILY TD 02/26/22 15:00 03/03/22 08:55 Diltiazem HCl (Cardizem) 90 mg Q6HRS PO 02/26/22 18:00 02/27/22 05:27 DC 02/26/22 17:31 Enoxaparin Sodium (Lovenox 40mg Syringe) 40 mg DAILY SQ 02/27/22 09:00 03/03/22 08:57 Acetaminophen/ Hydrocodone Bitart (Lortab 5/325) 1 tab PRN Q4HRS PRN PO MOD-SEV PAIN 02/26/22 15:45 02/28/22 17:30 Albuterol/ Ipratropium (Combivent Respimat 20-100 Mcg) 1 puff Q6HRS INH 02/26/22 18:00 02/27/22 05:27 DC 02/26/22 21:08 Levofloxacin (Levaquin) 750 mg DAILY PO 02/27/22 09:00 03/01/22 08:59 DC 02/28/22 08:26 Metoprolol Tartrate (Lopressor) 50 mg BID PO 02/26/22 21:00 03/03/22 20:04 Olanzapine (ZyPREXA ZYDIS) 5 mg PRN Q6HRS PRN PO ANXIETY / AGITATION 02/26/22 15:45 02/28/22 23:00 Albuterol Sulfate (Ventolin Hfa Inhaler) 1 puff PRN Q6HRS PRN INH SOA 02/26/22 16:30 03/02/22 12:53 Aspirin (Aspirin Enteric Coated) 162 mg DAILY PO 02/27/22 09:00 03/03/22 08:55 Pantoprazole Sodium (Protonix) 40 mg DAILYAC PO 02/27/22 07:30 03/03/22 08:56 Nicotine (Nicoderm Cq 21mg Patch) 1 patch DAILY TD 02/27/22 09:00 02/26/22 16:13 DC Diltiazem HCl (Cardizem) 90 mg QID PO 02/27/22 09:00 03/01/22 16:54 DC 03/01/22 16:19 Albuterol/ Ipratropium (Combivent Respimat 20-100 Mcg) 1 puff QID INH 02/27/22 09:00 03/03/22 20:03 Lactobacillus Rhamnosus (Culturelle) 1 cap BID PO 02/28/22 09:00 03/03/22 20:04 Quetiapine Fumarate (SEROquel) 25 mg 0900,1300,1700 PO 03/01/22 09:00 03/03/22 17:22 Diltiazem HCl (Cardizem) 60 mg QID PO 03/01/22 17:00 03/01/22 17:02 DC Cetirizine HCl (ZyrTEC) 10 mg DAILY PO 03/02/22 09:00 03/03/22 08:55 Diltiazem HCl (Cardizem) 60 mg QID PO 03/01/22 21:00 03/03/22 20:04 Mirtazapine (Remeron) 7.5 mg QHS PO 03/01/22 21:00 03/03/22 20:03 Sertraline HCl (Zoloft) 25 mg DAILY PO 03/03/22 09:00 03/03/22 09:42 Current Medications Medications (Trade) Dose Ordered Sig/Sameer Route PRN Reason Start Time Stop Time Status Last Admin Dose Admin Sertraline HCl (Zoloft) 25 mg DAILY PO 03/03/22 09:00 03/03/22 09:42 I have reviewed the current psychotropics carefully including drug interactions. Risk benefit ratio favors no change other than as noted in my dictated progress note. 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
--- NOTE | 2022-03-03 22:31 | NUR ---
Nursing Note Pt in bed at shift change. Responds minimally to voice, takes po meds compliant and cooperative. Rolls back over after assessment and goes back to sleep. No other behaviors.
[2022-03-04] MEDS: HYDROcodone/APAP 5/325MG 1 TAB TABLET PO PRN ×2 (02:08→19:43)
[2022-03-04] MEDS: ACETAMINOPHEN 325 MG TABLET PO PRN ×2 (02:08→19:44)
[2022-03-04 06:06] VITALS: BP 124/76
--- NOTE | 2022-03-04 06:16 | PDOC ---
Exam Note: Christiano Note: This note is for 03/03/2022 covers elements not covered in my initial note. Subjective: The patient was seen individually on 03/03/2022, discussed and reviewed the chart with Marilee BEATTY. The patient slept 3/4 hours previous night. He has had a difficult day, agitated, cursing at staff. He did take his medica tions. He was growling under his breath per nursing report. Received Zyprexa and this was helpful. Review of Systems: Impaired ambulation, in wheelchair. No CV, , pulmonary, eye system symptoms on review. Positive for sleep attacks. Mental Status Exam: Patient is oriented to himself and situation. Speech difficult to understand. Abstraction fair. Computation impaired. Language function intact. Attention span short. Mood and affect withdrawn. Laboratory Data: Reviewed. Impression: Bipolar 1 disorder, mixed with psychotic features. 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 Obstructive sleep apnea and narcolepsy. Plan: Continue psychotropics Sertraline and Seroquel along with Remeron 7.5 mg h.s., Zyprexa p.r.n. Reviewed drug interactions and risk-benefit ratio. Adjust further as clinically indicated. Assessment: Vital Signs/I&O: Vital Signs Date Time Temp Pulse Resp B/P (MAP) Pulse Ox O2 Delivery O2 Flow Rate FiO2 03/04/22 06:06 97.9 67 24 124/76 (92) 95 03/01/22 12:18 Room Air 02/26/22 15:45 2.0 I & O 03/03/22 03/03/22 03/04/22 14:59 22:59 06:59 Intake Total 680 ml 580 ml Balance 680 ml 580 ml Current Medications: Meds: Current Medications Medications (Trade) Dose Ordered Sig/Sameer Route PRN Reason Start Time Stop Time Status Last Admin Dose Admin Sertraline HCl (Zoloft) 25 mg DAILY PO 03/03/22 09:00 03/03/22 09:42 I have reviewed the current psychotropics carefully including drug interactions. Risk benefit ratio favors no change other than as noted in my dictated progress note. 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
[2022-03-04] MEDS: IPRATROPIUM/ALBUTEROL 20/100mcg/INH INHALER. INH SCH ×4 (08:35→19:42)
[2022-03-04] MEDS: ASPIRIN ENTERIC COATED 81 MG TABLET.DR. PO SCH (08:36)
[2022-03-04] MEDS: CETIRIZINE HCL 10 MG TABLET PO SCH (08:36)
[2022-03-04] MEDS: dilTIAZem HCL 30 MG TABLET PO SCH ×4 (08:36→19:43)
[2022-03-04] MEDS: LACTOBACILLUS RHAMNOSUS GG 1 CAPSULE. PO SCH ×2 (08:36→19:42)
[2022-03-04] MEDS: METOPROLOL TART IMMED RELEASE 50 MG TABLET PO SCH ×2 (08:36→19:44)
[2022-03-04] MEDS: NICOTINE 21MG PATCH. TD SCH (08:36)
[2022-03-04] MEDS: SERTRALINE 25 MG TABLET. PO SCH (08:36)
[2022-03-04] MEDS: PANTOPRAZOLE 40 MG TABLET. PO SCH (08:37)
[2022-03-04] MEDS: QUEtiapine 25 MG TABLET. PO SCH ×3 (08:37→16:32)
[2022-03-04] MEDS: ENOXAPARIN 40 MG/0.4 ML SYRINGE. SQ SCH (08:37)
--- NOTE | 2022-03-04 11:45 | NUR ---
Nurse Day Shift Note: Pt presents with demanding behaviors, but calms down when calmly spoken to and taken care of. Pt was medication compliant. Pt is able to make needs known to staff. Pt is low-mar on the unit. Pt continues to rest as needed during the day. Pt is noted to have spent time in the hallways and in pt room resting today. Pt vital signs are WNL. Pt slept 3.25 hours last night. Pt continues to have a good appetite. Will continue to monitor.
[2022-03-04 15:43] VITALS: BP 124/78
[2022-03-04] MEDS: MIRTAZAPINE 7.5 MG TABLET. PO SCH (19:42)
--- NOTE | 2022-03-04 21:25 | PDOC ---
Exam Note: Christiano Note: Please also refer to the separate dictated note~for this date of service dictated separately.~Patient seen individually. Discussed the patient with Nursing staff reviewed the chart.~Reviewed interim history and current functioning. Reviewed vital signs,~Labs/ Radiology~and current medications noted below. Continue current treatment with the changes noted in the dictated addendum note Assessment: Vital Signs/I&O: Vital Signs Date Time Temp Pulse Resp B/P (MAP) Pulse Ox O2 Delivery O2 Flow Rate FiO2 03/04/22 20:13 95 03/04/22 19:44 74 124/78 03/04/22 15:43 98.0 20 Room Air 02/26/22 15:45 2.0 I & O 03/03/22 03/03/22 03/04/22 15:00 23:00 07:00 Intake Total 680 ml 580 ml Balance 680 ml 580 ml Current Medications: Meds: Current Medications Medications (Trade) Dose Ordered Sig/Sameer Route PRN Reason Start Time Stop Time Status Last Admin Dose Admin Acetaminophen (Tylenol) 650 mg PRN Q6HRS PRN PO MILD PAIN / TEMP > 100.3'F 02/26/22 14:15 03/04/22 19:44 Multi-Ingredient Ointment (Analgesic [place]) 1 omer PRN QID PRN TP MUSCLE PAIN 02/26/22 14:15 Al Hydroxide/Mg Hydroxide (Mylanta Plus Xs) 15 ml PRN AFTMEALHC PRN PO DYSPEPSIA 02/26/22 14:15 Magnesium Hydroxide (Milk Of Magnesia) 2,400 mg PRN QHS PRN PO CONSTIPATION 02/26/22 14:15 Nicotine (Nicoderm Cq 21mg Patch) 1 patch DAILY TD 02/26/22 15:00 03/04/22 08:36 Diltiazem HCl (Cardizem) 90 mg Q6HRS PO 02/26/22 18:00 02/27/22 05:27 DC 02/26/22 17:31 Enoxaparin Sodium (Lovenox 40mg Syringe) 40 mg DAILY SQ 02/27/22 09:00 03/04/22 08:37 Acetaminophen/ Hydrocodone Bitart (Lortab 5/325) 1 tab PRN Q4HRS PRN PO MOD-SEV PAIN 02/26/22 15:45 03/04/22 19:43 Albuterol/ Ipratropium (Combivent Respimat 20-100 Mcg) 1 puff Q6HRS INH 02/26/22 18:00 02/27/22 05:27 DC 02/26/22 21:08 Levofloxacin (Levaquin) 750 mg DAILY PO 02/27/22 09:00 03/01/22 08:59 DC 02/28/22 08:26 Metoprolol Tartrate (Lopressor) 50 mg BID PO 02/26/22 21:00 03/04/22 19:44 Olanzapine (ZyPREXA ZYDIS) 5 mg PRN Q6HRS PRN PO ANXIETY / AGITATION 02/26/22 15:45 03/04/22 19:43 Albuterol Sulfate (Ventolin Hfa Inhaler) 1 puff PRN Q6HRS PRN INH SOA 02/26/22 16:30 03/02/22 12:53 Aspirin (Aspirin Enteric Coated) 162 mg DAILY PO 02/27/22 09:00 03/04/22 08:36 Pantoprazole Sodium (Protonix) 40 mg DAILYAC PO 02/27/22 07:30 03/04/22 08:37 Nicotine (Nicoderm Cq 21mg Patch) 1 patch DAILY TD 02/27/22 09:00 02/26/22 16:13 DC Diltiazem HCl (Cardizem) 90 mg QID PO 02/27/22 09:00 03/01/22 16:54 DC 03/01/22 16:19 Albuterol/ Ipratropium (Combivent Respimat 20-100 Mcg) 1 puff QID INH 02/27/22 09:00 03/04/22 19:42 Lactobacillus Rhamnosus (Culturelle) 1 cap BID PO 02/28/22 09:00 03/04/22 19:42 Quetiapine Fumarate (SEROquel) 25 mg 0900,1300,1700 PO 03/01/22 09:00 03/04/22 16:32 Diltiazem HCl (Cardizem) 60 mg QID PO 03/01/22 17:00 03/01/22 17:02 DC Cetirizine HCl (ZyrTEC) 10 mg DAILY PO 03/02/22 09:00 03/04/22 08:36 Diltiazem HCl (Cardizem) 60 mg QID PO 03/01/22 21:00 03/04/22 19:43 Mirtazapine (Remeron) 7.5 mg QHS PO 03/01/22 21:00 03/04/22 19:42 Sertraline HCl (Zoloft) 25 mg DAILY PO 03/03/22 09:00 03/04/22 08:36 Methylphenidate HCl (Methylphenidate HCl) 20 mg BIDACBL PO 03/05/22 07:30 I have reviewed the current psychotropics carefully including drug interactions. Risk benefit ratio favors no change other than as noted in my dictated progress note. 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
--- NOTE | 2022-03-04 23:23 | NUR ---
Nursing Note Pt given pain meds and zydis at HS. Complains of hip and back pain, and is generally cranky for the most part. Seems irritable most of the time. Med compliant and cooperative with assessment. Lungs coarse with crackles and wheezes. Soa with any exercise, but sats are 98%. Isolates to room.
[2022-03-05] MEDS: HYDROcodone/APAP 5/325MG 1 TAB TABLET PO PRN ×2 (03:20→20:22)
[2022-03-05 06:20] VITALS: BP 123/71
[2022-03-05] MEDS: LACTOBACILLUS RHAMNOSUS GG 1 CAPSULE. PO SCH ×3 (08:11→20:23)
[2022-03-05] MEDS: CETIRIZINE HCL 10 MG TABLET PO SCH (08:12)
[2022-03-05] MEDS: QUEtiapine 25 MG TABLET. PO SCH ×3 (08:12→17:07)
[2022-03-05] MEDS: PANTOPRAZOLE 40 MG TABLET. PO SCH (08:12)
[2022-03-05] MEDS: METOPROLOL TART IMMED RELEASE 50 MG TABLET PO SCH ×2 (08:12→20:23)
[2022-03-05] MEDS: SERTRALINE 25 MG TABLET. PO SCH (08:13)
[2022-03-05] MEDS: ASPIRIN ENTERIC COATED 81 MG TABLET.DR. PO SCH (08:13)
[2022-03-05] MEDS: METHYLPHENIDATE HCL 5 MG TABLET PO SCH ×2 (08:13→12:18)
[2022-03-05] MEDS: dilTIAZem HCL 30 MG TABLET PO SCH ×4 (08:14→20:22)
[2022-03-05] MEDS: IPRATROPIUM/ALBUTEROL 20/100mcg/INH INHALER. INH SCH ×4 (08:19→21:00)
[2022-03-05] MEDS: ENOXAPARIN 40 MG/0.4 ML SYRINGE. SQ SCH (08:20)
[2022-03-05] MEDS: NICOTINE 21MG PATCH. TD SCH (08:21)
--- NOTE | 2022-03-05 08:41 | PDOC ---
Exam Note: Christiano Note: This note is for 03/04/2022 covers elements not covered in my initial note. Subjective: The patient was seen individually on 03/04/2022, discussed and reviewed the chart with Elvin ABDI. The patient slept 3-1/4 hours previous night. I have reviewed about 10 pages of records from the [facility] where the patient was diagnosed as probable narcolepsy. Reportedly he had been [facility] but did not seem that he followed up there. Nevertheless it appears the recommendation was made to treat him on amphetamines. We will defer this to Dr. Willingham for final recommendations. He has not been agitated, somewhat anxious, restless. Review of Systems: Impaired ambulation, in wheelchair. No CV, , pulmonary, eye system symptoms on review. The patient is quite tired, lying in bed, fairly drowsy and explained to him that we received the records from [facility] and revisit with Dr. Willingham was planned for possible stimulance. Mental Status Exam: Patient is oriented to himself and situation. Abstraction fair. Computation impaired. Language function intact. Attention span short. Mood and affect withdrawn. Laboratory Data: Reviewed. Impression: Bipolar 1 disorder, mixed with psychotic features. 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 Obstructive sleep apnea and narcolepsy. Plan: Continue psychotropics unchanged. Reviewed drug interactions and risk- benefit ratio. Adjust further as clinically indicated. As noted above, we will await recommendations from Dr. Willingham on possible narcolepsy. Maintain Zoloft, Seroquel and Zyprexa p.r.n., Remeron 7.5 mg h.s. Assessment: Vital Signs/I&O: Vital Signs Date Time Temp Pulse Resp B/P (MAP) Pulse Ox O2 Delivery O2 Flow Rate FiO2 03/05/22 08:14 75 123/71 03/05/22 06:20 97.0 18 94 Room Air I & O 03/04/22 03/04/22 03/05/22 15:00 23:00 07:00 Intake Total 600 ml 480 ml Balance 600 ml 480 ml Current Medications: Meds: Current Medications Medications (Trade) Dose Ordered Sig/Sameer Route PRN Reason Start Time Stop Time Status Last Admin Dose Admin Methylphenidate HCl (Methylphenidate HCl) 20 mg BIDACBL PO 03/05/22 07:30 03/05/22 08:13 I have reviewed the current psychotropics carefully including drug interactions. Risk benefit ratio favors no change other than as noted in my dictated progress note. 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
--- NOTE | 2022-03-05 10:41 | NUR ---
WEEKLY ACTIVITY THERAPY NOTE Date of Admission: 02/26/22 Date of AT Assessment:02/27 Precipitating behaviors that initiated intake and admission: thinks he's being trapped in a room, anxious, bizarre thought processes, hallucinating, refusing meds & cares, convinced there was a snake in the room, agitated, grabbed nurse's hand Goal aimed: increase stress management and relaxation skills Initial Goal: Pt will participate in at least three Activity Therapy sessions before discharge Weekly progress towards goal: did not achieve, 0/3 Group participation level: zero Weekly highlights: no participation Behaviors observed: withdrawn to room Plan: no change to goal Beneficial adaptations:
--- NOTE | 2022-03-05 13:52 | NUR ---
Patient is alert and oriented x 3; unable to state why he is in the hospital. When first approached, he is irritable and gruff, but calm and responsive with conversation. He is compliant with taking medications whole floated in applesauce. He is compliant with assessment. He denies A/V hallucinations. No delusions noted. No disruptive behavior this shift. He is able to make needs known. Will continue to monitor.
[2022-03-05 15:36] VITALS: BP 114/75
--- NOTE | 2022-03-05 17:41 | NUR ---
Treatment team update: Pt is eating 75% of meals and sleeping on average 3 hours per night. Pt is compliant with medication floated in applesauce and cooperative with cares. Pt is irritable and rude with staff; mostly demanding on being able to use the phone and getting things that he wants. Pt has yet to attend any groups and is extremely withdrawn to his room. Pt has had periods of orthostatic BP and nursing continues to monitor. Pt was started on Ritalin 20mg BID, as well as wearing 2L of oxygen at night for sleep apnea. Initially discharge is planned for the middle of next week. Will push discharge potentially for the beginning of the week after.
[2022-03-05] MEDS: MIRTAZAPINE 7.5 MG TABLET. PO SCH (20:23)
[2022-03-05] MEDS: ACETAMINOPHEN 325 MG TABLET PO PRN (20:23)
--- NOTE | 2022-03-05 22:02 | PDOC ---
Exam Note: Christiano Note: Please also refer to the separate dictated note~for this date of service dictated separately.~Patient seen individually. Discussed the patient with Nursing staff reviewed the chart.~Reviewed interim history and current functioning. Reviewed vital signs,~Labs/ Radiology~and current medications noted below. Continue current treatment with the changes noted in the dictated addendum note Assessment: Vital Signs/I&O: Vital Signs Date Time Temp Pulse Resp B/P (MAP) Pulse Ox O2 Delivery O2 Flow Rate FiO2 03/05/22 20:52 92 03/05/22 20:23 73 114/75 03/05/22 15:36 98.0 20 03/05/22 06:20 Room Air I & O 03/04/22 03/04/22 03/05/22 15:00 23:00 07:00 Intake Total 600 ml 480 ml Balance 600 ml 480 ml Current Medications: Meds: Current Medications Medications (Trade) Dose Ordered Sig/Sameer Route PRN Reason Start Time Stop Time Status Last Admin Dose Admin Acetaminophen (Tylenol) 650 mg PRN Q6HRS PRN PO MILD PAIN / TEMP > 100.3'F 02/26/22 14:15 03/05/22 20:23 Multi-Ingredient Ointment (Analgesic [place]) 1 omer PRN QID PRN TP MUSCLE PAIN 02/26/22 14:15 Al Hydroxide/Mg Hydroxide (Mylanta Plus Xs) 15 ml PRN AFTMEALHC PRN PO DYSPEPSIA 02/26/22 14:15 Magnesium Hydroxide (Milk Of Magnesia) 2,400 mg PRN QHS PRN PO CONSTIPATION 02/26/22 14:15 Nicotine (Nicoderm Cq 21mg Patch) 1 patch DAILY TD 02/26/22 15:00 03/05/22 08:21 Diltiazem HCl (Cardizem) 90 mg Q6HRS PO 02/26/22 18:00 02/27/22 05:27 DC 02/26/22 17:31 Enoxaparin Sodium (Lovenox 40mg Syringe) 40 mg DAILY SQ 02/27/22 09:00 03/05/22 08:20 Acetaminophen/ Hydrocodone Bitart (Lortab 5/325) 1 tab PRN Q4HRS PRN PO MOD-SEV PAIN 02/26/22 15:45 03/05/22 20:22 Albuterol/ Ipratropium (Combivent Respimat 20-100 Mcg) 1 puff Q6HRS INH 02/26/22 18:00 02/27/22 05:27 DC 02/26/22 21:08 Levofloxacin (Levaquin) 750 mg DAILY PO 02/27/22 09:00 03/01/22 08:59 DC 02/28/22 08:26 Metoprolol Tartrate (Lopressor) 50 mg BID PO 02/26/22 21:00 03/05/22 20:23 Olanzapine (ZyPREXA ZYDIS) 5 mg PRN Q6HRS PRN PO ANXIETY / AGITATION 02/26/22 15:45 03/05/22 20:22 Albuterol Sulfate (Ventolin Hfa Inhaler) 1 puff PRN Q6HRS PRN INH SOA 02/26/22 16:30 03/02/22 12:53 Aspirin (Aspirin Enteric Coated) 162 mg DAILY PO 02/27/22 09:00 03/05/22 08:13 Pantoprazole Sodium (Protonix) 40 mg DAILYAC PO 02/27/22 07:30 03/05/22 08:12 Nicotine (Nicoderm Cq 21mg Patch) 1 patch DAILY TD 02/27/22 09:00 02/26/22 16:13 DC Diltiazem HCl (Cardizem) 90 mg QID PO 02/27/22 09:00 03/01/22 16:54 DC 03/01/22 16:19 Albuterol/ Ipratropium (Combivent Respimat 20-100 Mcg) 1 puff QID INH 02/27/22 09:00 03/05/22 21:00 Lactobacillus Rhamnosus (Culturelle) 1 cap BID PO 02/28/22 09:00 03/05/22 20:21 Quetiapine Fumarate (SEROquel) 25 mg 0900,1300,1700 PO 03/01/22 09:00 03/05/22 17:07 Diltiazem HCl (Cardizem) 60 mg QID PO 03/01/22 17:00 03/01/22 17:02 DC Cetirizine HCl (ZyrTEC) 10 mg DAILY PO 03/02/22 09:00 03/05/22 08:12 Diltiazem HCl (Cardizem) 60 mg QID PO 03/01/22 21:00 03/05/22 20:22 Mirtazapine (Remeron) 7.5 mg QHS PO 03/01/22 21:00 03/05/22 20:23 Sertraline HCl (Zoloft) 25 mg DAILY PO 03/03/22 09:00 03/05/22 08:13 Methylphenidate HCl (Methylphenidate HCl) 20 mg BIDACBL PO 03/05/22 07:30 03/05/22 12:18 Melatonin (Melatonin) 3 mg PRN QHS PRN PO INSOMNIA 03/05/22 22:00 UNV Current Medications Medications (Trade) Dose Ordered Sig/Sameer Route PRN Reason Start Time Stop Time Status Last Admin Dose Admin Methylphenidate HCl (Methylphenidate HCl) 20 mg BIDACBL PO 03/05/22 07:30 03/05/22 12:18 I have reviewed the current psychotropics carefully including drug interactions. Risk benefit ratio favors no change other than as noted in my dictated progress note. 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
[2022-03-05] MEDS: MELATONIN 3 MG TABLET PO PRN (22:45)
--- NOTE | 2022-03-05 23:00 | NUR ---
Nursing note Pt given multiple PRNS, melatonin, lortab, zydis and tylenol and pt still sits on the edge of the bed complaining. Pt constantly wants food and drink is attention seeking. Compliant and cooperative with meds and assessments.
[2022-03-06 06:43] VITALS: BP 142/80
[2022-03-06 06:51] LABS: BASO % 1 % (0-3); EOS # 0.4 x10^3/uL (0.0-0.7); EOS % 8 % (0-3); HEMOGLOBIN 12.2 g/dL (13.0-17.5); LYMPH # 1.2 x10^3/uL (1.0-4.8); LYMPH % 23 % (24-48); MEAN CORPUSCULAR HEMOGLOBIN 30 pg (25-35); MEAN CORPUSCULAR HGB CONC 33 g/dL (31-37); MEAN CORPUSCULAR VOLUME 92 fL (79-100); MONO # 0.5 x10^3/uL (0.0-1.1); MONO % 9 % (0-9); NEUT # 3.1 x10^3uL (1.8-7.7); NEUT % 59 % (31-73); PLATELET COUNT 337 x10^3/uL (140-400); RED BLOOD COUNT 4.01 x10^6/uL (4.30-5.70); RED CELL DISTRIBUTION WIDTH 15.1 % (11.5-14.5); WHITE BLOOD COUNT 5.3 x10^3/uL (4.0-11.0)
[2022-03-06 07:17] LABS: ALBUMIN 2.8 g/dL (3.4-5.0); ALBUMIN/GLOBULIN RATIO 0.7 (1.0-1.7); CALCIUM 8.9 mg/dL (8.5-10.1); CREATININE 0.8 mg/dL (0.7-1.3); GFR 92.8; TOTAL BILIRUBIN 0.3 mg/dL (0.2-1.0); TOTAL PROTEIN 6.7 g/dL (6.4-8.2)
[2022-03-06] MEDS: METHYLPHENIDATE HCL 5 MG TABLET PO SCH ×2 (08:15→12:16)
[2022-03-06] MEDS: dilTIAZem HCL 30 MG TABLET PO SCH ×4 (08:15→20:21)
[2022-03-06] MEDS: SERTRALINE 25 MG TABLET. PO SCH (08:16)
[2022-03-06] MEDS: LACTOBACILLUS RHAMNOSUS GG 1 CAPSULE. PO SCH ×2 (08:16→20:21)
[2022-03-06] MEDS: PANTOPRAZOLE 40 MG TABLET. PO SCH (08:16)
[2022-03-06] MEDS: CETIRIZINE HCL 10 MG TABLET PO SCH (08:16)
[2022-03-06] MEDS: METOPROLOL TART IMMED RELEASE 50 MG TABLET PO SCH ×2 (08:16→20:22)
[2022-03-06] MEDS: ASPIRIN ENTERIC COATED 81 MG TABLET.DR. PO SCH (08:16)
[2022-03-06] MEDS: QUEtiapine 25 MG TABLET. PO SCH ×3 (08:17→17:32)
[2022-03-06] MEDS: NICOTINE 21MG PATCH. TD SCH (08:22)
[2022-03-06] MEDS: IPRATROPIUM/ALBUTEROL 20/100mcg/INH INHALER. INH SCH ×4 (08:29→20:20)
[2022-03-06] MEDS: ENOXAPARIN 40 MG/0.4 ML SYRINGE. SQ SCH (08:29)
--- NOTE | 2022-03-06 08:48 | PDOC ---
Exam Note: Christiano Note: This note is a late entry for 03/05/2022 covers elements not covered in my initial note. Subjective: The patient was reviewed at treatment team meeting individually in the morning on 03/05/2022 with Carlene Viveros, Zara Oates, and Aliya Mehta (clinical social worker), Aye, activity therapy, and Suze BEATTY, discussed and reviewed the chart. The patient slept 5 hours previous night. Average sleep 3 hours. Appetite 75%. In the evening met with the patient individually in his room. Discussed with Kiersten BEATTY. He has been rude, irritable at times. He has been started on Ritalin 20 mg twice a day by Dr. Willingham for his narcolepsy. He is not attending any groups. Review of Systems: Impaired ambulation, in wheelchair. No CV, , pulmonary, eye system symptoms on review. He still complains of being tired with sleep attacks but improved. Mental Status Exam: Patient is oriented to himself and situation. Speech has some latency, coherent. Abstraction fair. Computation impaired. Language function intact. Attention span short. Mood and affect somewhat withdrawn. No suicidal or homicidal ideation. Laboratory Data: Reviewed. Impression: Bipolar 1 disorder, mixed with psychotic features. 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 Obstructive sleep apnea and narcolepsy. Plan: Continue psychotropics unchanged. Reviewed drug interactions and risk- benefit ratio. Adjust further as clinically indicated. We will defer to Dr. Willingham for adjusting the Ritalin for his narcolepsy. Assessment: Vital Signs/I&O: Vital Signs Date Time Temp Pulse Resp B/P (MAP) Pulse Ox O2 Delivery O2 Flow Rate FiO2 03/06/22 08:16 71 142/80 03/06/22 06:43 98.3 20 91 Room Air I & O 03/05/22 03/05/22 03/06/22 15:00 23:00 07:00 Intake Total 600 ml 480 ml Balance 600 ml 480 ml Labs: Laboratory Tests Test 03/06/22 05:54 White Blood Count 5.3 x10^3/uL (4.0-11.0) Red Blood Count 4.01 x10^6/uL (4.30-5.70) L Hemoglobin 12.2 g/dL (13.0-17.5) L Hematocrit 37.0 % (39.0-53.0) L Mean Corpuscular Volume 92 fL (79-100) Mean Corpuscular Hemoglobin 30 pg (25-35) Mean Corpuscular Hemoglobin Concent 33 g/dL (31-37) Red Cell Distribution Width 15.1 % (11.5-14.5) H Platelet Count 337 x10^3/uL (140-400) Neutrophils (%) (Auto) 59 % (31-73) Lymphocytes (%) (Auto) 23 % (24-48) L Monocytes (%) (Auto) 9 % (0-9) Eosinophils (%) (Auto) 8 % (0-3) H Basophils (%) (Auto) 1 % (0-3) Neutrophils # (Auto) 3.1 x10^3uL (1.8-7.7) Lymphocytes # (Auto) 1.2 x10^3/uL (1.0-4.8) Monocytes # (Auto) 0.5 x10^3/uL (0.0-1.1) Eosinophils # (Auto) 0.4 x10^3/uL (0.0-0.7) Basophils # (Auto) 0.0 x10^3/uL (0.0-0.2) Sodium Level Pending Potassium Level Pending Chloride Level Pending Carbon Dioxide Level 31 mmol/L (21-32) Anion Gap Pending Blood Urea Nitrogen 19 mg/dL (8-26) Creatinine 0.8 mg/dL (0.7-1.3) Estimated GFR (Cockcroft-Gault) 92.8 BUN/Creatinine Ratio 24 (6-20) H Glucose Level 83 mg/dL (70-99) Calcium Level 8.9 mg/dL (8.5-10.1) Total Bilirubin 0.3 mg/dL (0.2-1.0) Aspartate Amino Transferase (AST) 14 U/L (15-37) L Alanine Aminotransferase (ALT) 26 U/L (16-63) Alkaline Phosphatase 118 U/L (46-116) H Total Protein 6.7 g/dL (6.4-8.2) Albumin 2.8 g/dL (3.4-5.0) L Albumin/Globulin Ratio 0.7 (1.0-1.7) L Current Medications: Meds: Current Medications Medications (Trade) Dose Ordered Sig/Sameer Route PRN Reason Start Time Stop Time Status Last Admin Dose Admin Melatonin (Melatonin) 3 mg PRN QHS PRN PO INSOMNIA 03/05/22 22:00 03/05/22 22:45 I have reviewed the current psychotropics carefully including drug interactions. Risk benefit ratio favors no change other than as noted in my dictated progress note. 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
[2022-03-06 09:11] LABS: POTASSIUM 4.2 mmol/L (3.5-5.1)
--- NOTE | 2022-03-06 10:54 | NUR ---
Nurse note: Patient is alert and oriented x 4. Patient is calm and cooperative. He is compliant with assessment and taking his medications whole floated in applesauce. No delusions noted. Denies A/V hallucinations. Patient is able to make his needs known.
[2022-03-06 17:19] VITALS: BP 122/76
[2022-03-06] MEDS: MIRTAZAPINE 7.5 MG TABLET. PO SCH (20:22)
[2022-03-06] MEDS: ACETAMINOPHEN 325 MG TABLET PO PRN (20:35)
--- NOTE | 2022-03-06 21:33 | PDOC ---
Exam Note: Christiano Note: Please also refer to the separate dictated note~for this date of service dictated separately.~Patient seen individually. Discussed the patient with Nursing staff reviewed the chart.~Reviewed interim history and current functioning. Reviewed vital signs,~Labs/ Radiology~and current medications noted below. Continue current treatment with the changes noted in the dictated addendum note Assessment: Vital Signs/I&O: Vital Signs Date Time Temp Pulse Resp B/P (MAP) Pulse Ox O2 Delivery O2 Flow Rate FiO2 03/06/22 20:22 72 122/76 03/06/22 17:19 97.3 18 93 03/06/22 06:43 Room Air I & O 03/05/22 03/05/22 03/06/22 15:00 23:00 07:00 Intake Total 600 ml 480 ml Balance 600 ml 480 ml Labs: Laboratory Tests Test 03/06/22 05:54 White Blood Count 5.3 x10^3/uL (4.0-11.0) Red Blood Count 4.01 x10^6/uL (4.30-5.70) L Hemoglobin 12.2 g/dL (13.0-17.5) L Hematocrit 37.0 % (39.0-53.0) L Mean Corpuscular Volume 92 fL (79-100) Mean Corpuscular Hemoglobin 30 pg (25-35) Mean Corpuscular Hemoglobin Concent 33 g/dL (31-37) Red Cell Distribution Width 15.1 % (11.5-14.5) H Platelet Count 337 x10^3/uL (140-400) Neutrophils (%) (Auto) 59 % (31-73) Lymphocytes (%) (Auto) 23 % (24-48) L Monocytes (%) (Auto) 9 % (0-9) Eosinophils (%) (Auto) 8 % (0-3) H Basophils (%) (Auto) 1 % (0-3) Neutrophils # (Auto) 3.1 x10^3uL (1.8-7.7) Lymphocytes # (Auto) 1.2 x10^3/uL (1.0-4.8) Monocytes # (Auto) 0.5 x10^3/uL (0.0-1.1) Eosinophils # (Auto) 0.4 x10^3/uL (0.0-0.7) Basophils # (Auto) 0.0 x10^3/uL (0.0-0.2) Sodium Level 143 mmol/L (136-145) Potassium Level 4.2 mmol/L (3.5-5.1) Chloride Level 105 mmol/L (98-107) Carbon Dioxide Level 31 mmol/L (21-32) Anion Gap 7 (6-14) Blood Urea Nitrogen 19 mg/dL (8-26) Creatinine 0.8 mg/dL (0.7-1.3) Estimated GFR (Cockcroft-Gault) 92.8 BUN/Creatinine Ratio 24 (6-20) H Glucose Level 83 mg/dL (70-99) Calcium Level 8.9 mg/dL (8.5-10.1) Total Bilirubin 0.3 mg/dL (0.2-1.0) Aspartate Amino Transferase (AST) 14 U/L (15-37) L Alanine Aminotransferase (ALT) 26 U/L (16-63) Alkaline Phosphatase 118 U/L (46-116) H Total Protein 6.7 g/dL (6.4-8.2) Albumin 2.8 g/dL (3.4-5.0) L Albumin/Globulin Ratio 0.7 (1.0-1.7) L Current Medications: Meds: Laboratory Tests Test 03/06/22 05:54 White Blood Count 5.3 x10^3/uL Red Blood Count 4.01 x10^6/uL Hemoglobin 12.2 g/dL Hematocrit 37.0 % Mean Corpuscular Volume 92 fL Mean Corpuscular Hemoglobin 30 pg Mean Corpuscular Hemoglobin Concent 33 g/dL Red Cell Distribution Width 15.1 % Platelet Count 337 x10^3/uL Neutrophils (%) (Auto) 59 % Lymphocytes (%) (Auto) 23 % Monocytes (%) (Auto) 9 % Eosinophils (%) (Auto) 8 % Basophils (%) (Auto) 1 % Neutrophils # (Auto) 3.1 x10^3uL Lymphocytes # (Auto) 1.2 x10^3/uL Monocytes # (Auto) 0.5 x10^3/uL Eosinophils # (Auto) 0.4 x10^3/uL Basophils # (Auto) 0.0 x10^3/uL Sodium Level 143 mmol/L Potassium Level 4.2 mmol/L Chloride Level 105 mmol/L Carbon Dioxide Level 31 mmol/L Anion Gap 7 Blood Urea Nitrogen 19 mg/dL Creatinine 0.8 mg/dL Estimated GFR (Cockcroft-Gault) 92.8 BUN/Creatinine Ratio 24 Glucose Level 83 mg/dL Calcium Level 8.9 mg/dL Total Bilirubin 0.3 mg/dL Aspartate Amino Transf (AST/SGOT) 14 U/L Alanine Aminotransferase (ALT/SGPT) 26 U/L Alkaline Phosphatase 118 U/L Total Protein 6.7 g/dL Albumin 2.8 g/dL Albumin/Globulin Ratio 0.7 Current Medications Medications (Trade) Dose Ordered Sig/Sameer Route PRN Reason Start Time Stop Time Status Last Admin Dose Admin Acetaminophen (Tylenol) 650 mg PRN Q6HRS PRN PO MILD PAIN / TEMP > 100.3'F 02/26/22 14:15 03/06/22 20:35 Multi-Ingredient Ointment (Analgesic Howell) 1 omer PRN QID PRN TP MUSCLE PAIN 02/26/22 14:15 Al Hydroxide/Mg Hydroxide (Mylanta Plus Xs) 15 ml PRN AFTMEALHC PRN PO DYSPEPSIA 02/26/22 14:15 Magnesium Hydroxide (Milk Of Magnesia) 2,400 mg PRN QHS PRN PO CONSTIPATION 02/26/22 14:15 Nicotine (Nicoderm Cq 21mg Patch) 1 patch DAILY TD 02/26/22 15:00 03/06/22 08:22 Diltiazem HCl (Cardizem) 90 mg Q6HRS PO 02/26/22 18:00 02/27/22 05:27 DC 02/26/22 17:31 Enoxaparin Sodium (Lovenox 40mg Syringe) 40 mg DAILY SQ 02/27/22 09:00 03/06/22 08:29 Acetaminophen/ Hydrocodone Bitart (Lortab 5/325) 1 tab PRN Q4HRS PRN PO MOD-SEV PAIN 02/26/22 15:45 03/05/22 20:22 Albuterol/ Ipratropium (Combivent Respimat 20-100 Mcg) 1 puff Q6HRS INH 02/26/22 18:00 02/27/22 05:27 DC 02/26/22 21:08 Levofloxacin (Levaquin) 750 mg DAILY PO 02/27/22 09:00 03/01/22 08:59 DC 02/28/22 08:26 Metoprolol Tartrate (Lopressor) 50 mg BID PO 02/26/22 21:00 03/06/22 20:22 Olanzapine (ZyPREXA ZYDIS) 5 mg PRN Q6HRS PRN PO ANXIETY / AGITATION 02/26/22 15:45 03/05/22 22:45 Albuterol Sulfate (Ventolin Hfa Inhaler) 1 puff PRN Q6HRS PRN INH SOA 02/26/22 16:30 03/02/22 12:53 Aspirin (Aspirin Enteric Coated) 162 mg DAILY PO 02/27/22 09:00 03/06/22 08:16 Pantoprazole Sodium (Protonix) 40 mg DAILYAC PO 02/27/22 07:30 03/06/22 08:16 Nicotine (Nicoderm Cq 21mg Patch) 1 patch DAILY TD 02/27/22 09:00 02/26/22 16:13 DC Diltiazem HCl (Cardizem) 90 mg QID PO 02/27/22 09:00 03/01/22 16:54 DC 03/01/22 16:19 Albuterol/ Ipratropium (Combivent Respimat 20-100 Mcg) 1 puff QID INH 02/27/22 09:00 03/06/22 20:20 Lactobacillus Rhamnosus (Culturelle) 1 cap BID PO 02/28/22 09:00 03/06/22 20:21 Quetiapine Fumarate (SEROquel) 25 mg 0900,1300,1700 PO 03/01/22 09:00 03/06/22 17:32 Diltiazem HCl (Cardizem) 60 mg QID PO 03/01/22 17:00 03/01/22 17:02 DC Cetirizine HCl (ZyrTEC) 10 mg DAILY PO 03/02/22 09:00 03/06/22 08:16 Diltiazem HCl (Cardizem) 60 mg QID PO 03/01/22 21:00 03/06/22 20:21 Mirtazapine (Remeron) 7.5 mg QHS PO 03/01/22 21:00 03/06/22 20:22 Sertraline HCl (Zoloft) 25 mg DAILY PO 03/03/22 09:00 03/06/22 08:16 Methylphenidate HCl (Methylphenidate HCl) 20 mg BIDACBL PO 03/05/22 07:30 03/06/22 12:16 Melatonin (Melatonin) 3 mg PRN QHS PRN PO INSOMNIA 03/05/22 22:00 03/05/22 22:45 Current Medications Medications (Trade) Dose Ordered Sig/Sameer Route PRN Reason Start Time Stop Time Status Last Admin Dose Admin Melatonin (Melatonin) 3 mg PRN QHS PRN PO INSOMNIA 03/05/22 22:00 03/05/22 22:45 I have reviewed the current psychotropics carefully including drug interactions. Risk benefit ratio favors no change other than as noted in my dictated progress note. 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
--- NOTE | 2022-03-07 04:02 | NUR ---
Jeramie was alert, oriented x 4, denied SI/HI thoughts. Cooperative with care, needy. He showered, ate snacks. Requested pain med for generalized pain 05/17; given Tylenol 650 mg at 2034. Refused oxygen at bedtime. Jeramie did not sleep this shift, sitting in his bed and occasionally self propelling in w/c up and down the morales. Addendum: 03/07/22 at 0548 by KELLY MACHUCA RN Jeramie fell asleep at 0400 and is resting quietly.
[2022-03-07 06:15] VITALS: BP 124/61
[2022-03-07] MEDS: IPRATROPIUM/ALBUTEROL 20/100mcg/INH INHALER. INH SCH ×4 (08:09→20:33)
[2022-03-07] MEDS: QUEtiapine 25 MG TABLET. PO SCH ×3 (08:15→17:19)
[2022-03-07] MEDS: METOPROLOL TART IMMED RELEASE 50 MG TABLET PO SCH ×2 (08:15→20:30)
[2022-03-07] MEDS: METHYLPHENIDATE HCL 5 MG TABLET PO SCH ×2 (08:15→12:21)
[2022-03-07] MEDS: CETIRIZINE HCL 10 MG TABLET PO SCH (08:15)
[2022-03-07] MEDS: ASPIRIN ENTERIC COATED 81 MG TABLET.DR. PO SCH (08:15)
[2022-03-07] MEDS: SERTRALINE 25 MG TABLET. PO SCH (08:15)
[2022-03-07] MEDS: LACTOBACILLUS RHAMNOSUS GG 1 CAPSULE. PO SCH ×2 (08:16→20:30)
[2022-03-07] MEDS: PANTOPRAZOLE 40 MG TABLET. PO SCH (08:16)
[2022-03-07] MEDS: dilTIAZem HCL 30 MG TABLET PO SCH ×4 (08:16→20:30)
[2022-03-07] MEDS: ENOXAPARIN 40 MG/0.4 ML SYRINGE. SQ SCH (08:17)
[2022-03-07] MEDS: NICOTINE 21MG PATCH. TD SCH (08:21)
--- NOTE | 2022-03-07 08:59 | PDOC ---
Exam Note: Christiano Note: This note is a late entry for 03/06/2022 covers elements not covered in my initial note. Subjective: The patient was seen individually on 03/06/2022, discussed and reviewed the chart with Suze BEATTY. The patient slept 5-1/4 hours previous night. The patient has been more awake and alert today on Ritalin 20 mg twice a day. We will defer to Dr. Willingham for dosage adjustment. I met with him in his room. He had not got up for supper but agreed to do that. Nursing staff was going to assist him. Review of Systems: Impaired ambulation, in wheelchair. No CV, , pulmonary, eye system symptoms on review. Mental Status Exam: Patient is oriented to himself and situation. He was deep in sleep, did not wake up or interact with me but then made an effort to get to the dining room. Speech has some latency, coherent. Abstraction fair. Computation impaired. Language function intact. Attention span short. Mood and affect somewhat withdrawn. No suicidal or homicidal ideation. Laboratory Data: Reviewed. Impression: Bipolar 1 disorder, mixed with psychotic features. 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 Obstructive sleep apnea and narcolepsy. Plan: Continue psychotropics unchanged. Reviewed drug interactions and risk- benefit ratio. Adjust further as clinically indicated. Assessment: Vital Signs/I&O: Vital Signs Date Time Temp Pulse Resp B/P (MAP) Pulse Ox O2 Delivery O2 Flow Rate FiO2 03/07/22 08:16 68 124/61 03/07/22 06:15 97.8 20 92 03/06/22 06:43 Room Air I & O 03/06/22 03/06/22 03/07/22 15:00 23:00 07:00 Intake Total 610 ml 480 ml Balance 610 ml 480 ml Current Medications: I have reviewed the current psychotropics carefully including drug interactions. Risk benefit ratio favors no change other than as noted in my dictated progress note. 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
[2022-03-07] MEDS: HYDROcodone/APAP 5/325MG 1 TAB TABLET PO PRN ×2 (13:54→20:32)
--- NOTE | 2022-03-07 15:05 | NUR ---
Nurse note: Patient is alert and oriented x 4. He is pleasant, calm and cooperative. He is compliant with assessment and taking his medications whole floated in applesauce. No delusions noted. He denies A/V hallucinations. He complains of pain to back, hips and neck. Hydrocodone was given as ordered. Also gave Zyprexa as ordered for anxiety. He is able to make his needs known. Will continue to monitor.
[2022-03-07 20:28] VITALS: BP 158/81
[2022-03-07] MEDS: MIRTAZAPINE 7.5 MG TABLET. PO SCH (20:30)
[2022-03-07] MEDS: MELATONIN 3 MG TABLET PO PRN (20:32)
--- NOTE | 2022-03-07 21:50 | PDOC ---
Exam Note: Christiano Note: Please also refer to the separate dictated note~for this date of service dictated separately.~Patient seen individually. Discussed the patient with Nursing staff reviewed the chart.~Reviewed interim history and current functioning. Reviewed vital signs,~Labs/ Radiology~and current medications noted below. Continue current treatment with the changes noted in the dictated addendum note Assessment: Vital Signs/I&O: Vital Signs Date Time Temp Pulse Resp B/P (MAP) Pulse Ox O2 Delivery O2 Flow Rate FiO2 03/07/22 20:32 96 03/07/22 20:30 76 158/81 03/07/22 14:37 20 03/07/22 06:15 97.8 03/06/22 06:43 Room Air I & O 03/06/22 03/06/22 03/07/22 15:00 23:00 07:00 Intake Total 610 ml 480 ml Balance 610 ml 480 ml Current Medications: Meds: Current Medications Medications (Trade) Dose Ordered Sig/Sameer Route PRN Reason Start Time Stop Time Status Last Admin Dose Admin Acetaminophen (Tylenol) 650 mg PRN Q6HRS PRN PO MILD PAIN / TEMP > 100.3'F 02/26/22 14:15 03/06/22 20:35 Multi-Ingredient Ointment (Analgesic Wann) 1 omer PRN QID PRN TP MUSCLE PAIN 02/26/22 14:15 Al Hydroxide/Mg Hydroxide (Mylanta Plus Xs) 15 ml PRN AFTMEALHC PRN PO DYSPEPSIA 02/26/22 14:15 Magnesium Hydroxide (Milk Of Magnesia) 2,400 mg PRN QHS PRN PO CONSTIPATION 02/26/22 14:15 Nicotine (Nicoderm Cq 21mg Patch) 1 patch DAILY TD 02/26/22 15:00 03/07/22 08:21 Diltiazem HCl (Cardizem) 90 mg Q6HRS PO 02/26/22 18:00 02/27/22 05:27 DC 02/26/22 17:31 Enoxaparin Sodium (Lovenox 40mg Syringe) 40 mg DAILY SQ 02/27/22 09:00 03/07/22 08:17 Acetaminophen/ Hydrocodone Bitart (Lortab 5/325) 1 tab PRN Q4HRS PRN PO MOD-SEV PAIN 02/26/22 15:45 03/07/22 20:32 Albuterol/ Ipratropium (Combivent Respimat 20-100 Mcg) 1 puff Q6HRS INH 02/26/22 18:00 02/27/22 05:27 DC 02/26/22 21:08 Levofloxacin (Levaquin) 750 mg DAILY PO 02/27/22 09:00 03/01/22 08:59 DC 02/28/22 08:26 Metoprolol Tartrate (Lopressor) 50 mg BID PO 02/26/22 21:00 03/07/22 20:30 Olanzapine (ZyPREXA ZYDIS) 5 mg PRN Q6HRS PRN PO ANXIETY / AGITATION 02/26/22 15:45 03/07/22 13:54 Albuterol Sulfate (Ventolin Hfa Inhaler) 1 puff PRN Q6HRS PRN INH SOA 02/26/22 16:30 03/02/22 12:53 Aspirin (Aspirin Enteric Coated) 162 mg DAILY PO 02/27/22 09:00 03/07/22 08:15 Pantoprazole Sodium (Protonix) 40 mg DAILYAC PO 02/27/22 07:30 03/07/22 08:16 Nicotine (Nicoderm Cq 21mg Patch) 1 patch DAILY TD 02/27/22 09:00 02/26/22 16:13 DC Diltiazem HCl (Cardizem) 90 mg QID PO 02/27/22 09:00 03/01/22 16:54 DC 03/01/22 16:19 Albuterol/ Ipratropium (Combivent Respimat 20-100 Mcg) 1 puff QID INH 02/27/22 09:00 03/07/22 20:33 Lactobacillus Rhamnosus (Culturelle) 1 cap BID PO 02/28/22 09:00 03/07/22 20:30 Quetiapine Fumarate (SEROquel) 25 mg 0900,1300,1700 PO 03/01/22 09:00 03/07/22 17:19 Diltiazem HCl (Cardizem) 60 mg QID PO 03/01/22 17:00 03/01/22 17:02 DC Cetirizine HCl (ZyrTEC) 10 mg DAILY PO 03/02/22 09:00 03/07/22 08:15 Diltiazem HCl (Cardizem) 60 mg QID PO 03/01/22 21:00 03/07/22 20:30 Mirtazapine (Remeron) 7.5 mg QHS PO 03/01/22 21:00 03/07/22 20:30 Sertraline HCl (Zoloft) 25 mg DAILY PO 03/03/22 09:00 03/07/22 08:15 Methylphenidate HCl (Methylphenidate HCl) 20 mg BIDACBL PO 03/05/22 07:30 03/07/22 12:21 Melatonin (Melatonin) 3 mg PRN QHS PRN PO INSOMNIA 03/05/22 22:00 03/07/22 20:32 I have reviewed the current psychotropics carefully including drug interactions. Risk benefit ratio favors no change other than as noted in my dictated progress note. 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
--- NOTE | 2022-03-07 23:31 | NUR ---
Pt withdrawn to his room this evening. Compliant with whole medications. Repeatedly asking for pain medications even after being told that he received Lortab with his HS medications. Pt irritable and demanding and yelling out to staff. Pt currently awake in room.
[2022-03-08] MEDS: HYDROcodone/APAP 5/325MG 1 TAB TABLET PO PRN ×4 (01:29→21:16)
[2022-03-08 06:19] VITALS: BP 132/85
[2022-03-08] MEDS: ENOXAPARIN 40 MG/0.4 ML SYRINGE. SQ SCH (08:36)
[2022-03-08] MEDS: dilTIAZem HCL 30 MG TABLET PO SCH ×4 (08:36→21:11)
[2022-03-08] MEDS: ASPIRIN ENTERIC COATED 81 MG TABLET.DR. PO SCH (08:36)
[2022-03-08] MEDS: SERTRALINE 25 MG TABLET. PO SCH (08:36)
[2022-03-08] MEDS: NICOTINE 21MG PATCH. TD SCH (08:36)
[2022-03-08] MEDS: CETIRIZINE HCL 10 MG TABLET PO SCH (08:36)
[2022-03-08] MEDS: QUEtiapine 25 MG TABLET. PO SCH ×3 (08:37→17:15)
[2022-03-08] MEDS: METOPROLOL TART IMMED RELEASE 50 MG TABLET PO SCH ×2 (08:37→21:11)
[2022-03-08] MEDS: LACTOBACILLUS RHAMNOSUS GG 1 CAPSULE. PO SCH ×2 (08:37→21:11)
[2022-03-08] MEDS: PANTOPRAZOLE 40 MG TABLET. PO SCH (08:37)
[2022-03-08] MEDS: IPRATROPIUM/ALBUTEROL 20/100mcg/INH INHALER. INH SCH ×4 (08:37→21:00)
[2022-03-08] MEDS: METHYLPHENIDATE HCL 5 MG TABLET PO SCH ×2 (08:49→12:11)
--- NOTE | 2022-03-08 15:13 | NUR ---
Nursing note: Patient in dinning room for medications & assessment. He is compliant with medications taken whole. He is A/O X4. Patient c/o 6/10 back pain, PRN pain medication given per order. He is irritable, demanding, & withdrawn to room coming out for meals only. He propels self in w/c & self transfers. He is currently sitting in his bed resting with his eyes closed. Will continue to monitor.
[2022-03-08 15:39] VITALS: BP 101/62
[2022-03-08 21:09] VITALS: BP 125/64
[2022-03-08] MEDS: MIRTAZAPINE 7.5 MG TABLET. PO SCH (21:11)
[2022-03-08] MEDS: MELATONIN 3 MG TABLET PO PRN (21:16)
[2022-03-08] MEDS: traZODone 50 MG TABLET. PO PRN (21:16)
--- NOTE | 2022-03-08 21:30 | PDOC ---
Exam Note: Christiano Note: Please also refer to the separate dictated note~for this date of service dictated separately.~Patient seen individually. Discussed the patient with Nursing staff reviewed the chart.~Reviewed interim history and current functioning. Reviewed vital signs,~Labs/ Radiology~and current medications noted below. Continue current treatment with the changes noted in the dictated addendum note Assessment: Vital Signs/I&O: Vital Signs Date Time Temp Pulse Resp B/P (MAP) Pulse Ox O2 Delivery O2 Flow Rate FiO2 03/08/22 21:16 92 03/08/22 21:11 72 125/64 03/08/22 15:39 97.8 20 Room Air I & O 03/07/22 03/07/22 03/08/22 15:00 23:00 07:00 Intake Total 1160 ml 660 ml Balance 1160 ml 660 ml Current Medications: Meds: Current Medications Medications (Trade) Dose Ordered Sig/Sameer Route PRN Reason Start Time Stop Time Status Last Admin Dose Admin Acetaminophen (Tylenol) 650 mg PRN Q6HRS PRN PO MILD PAIN / TEMP > 100.3'F 02/26/22 14:15 03/06/22 20:35 Multi-Ingredient Ointment (Analgesic Dillingham) 1 omer PRN QID PRN TP MUSCLE PAIN 02/26/22 14:15 Al Hydroxide/Mg Hydroxide (Mylanta Plus Xs) 15 ml PRN AFTMEALHC PRN PO DYSPEPSIA 02/26/22 14:15 Magnesium Hydroxide (Milk Of Magnesia) 2,400 mg PRN QHS PRN PO CONSTIPATION 02/26/22 14:15 Nicotine (Nicoderm Cq 21mg Patch) 1 patch DAILY TD 02/26/22 15:00 03/08/22 08:36 Diltiazem HCl (Cardizem) 90 mg Q6HRS PO 02/26/22 18:00 02/27/22 05:27 DC 02/26/22 17:31 Enoxaparin Sodium (Lovenox 40mg Syringe) 40 mg DAILY SQ 02/27/22 09:00 03/08/22 08:36 Acetaminophen/ Hydrocodone Bitart (Lortab 5/325) 1 tab PRN Q4HRS PRN PO MOD-SEV PAIN 02/26/22 15:45 03/08/22 21:16 Albuterol/ Ipratropium (Combivent Respimat 20-100 Mcg) 1 puff Q6HRS INH 02/26/22 18:00 02/27/22 05:27 DC 02/26/22 21:08 Levofloxacin (Levaquin) 750 mg DAILY PO 02/27/22 09:00 03/01/22 08:59 DC 02/28/22 08:26 Metoprolol Tartrate (Lopressor) 50 mg BID PO 02/26/22 21:00 03/08/22 21:11 Olanzapine (ZyPREXA ZYDIS) 5 mg PRN Q6HRS PRN PO ANXIETY / AGITATION 02/26/22 15:45 03/07/22 13:54 Albuterol Sulfate (Ventolin Hfa Inhaler) 1 puff PRN Q6HRS PRN INH SOA 02/26/22 16:30 03/02/22 12:53 Aspirin (Aspirin Enteric Coated) 162 mg DAILY PO 02/27/22 09:00 03/08/22 08:36 Pantoprazole Sodium (Protonix) 40 mg DAILYAC PO 02/27/22 07:30 03/08/22 08:37 Nicotine (Nicoderm Cq 21mg Patch) 1 patch DAILY TD 02/27/22 09:00 02/26/22 16:13 DC Diltiazem HCl (Cardizem) 90 mg QID PO 02/27/22 09:00 03/01/22 16:54 DC 03/01/22 16:19 Albuterol/ Ipratropium (Combivent Respimat 20-100 Mcg) 1 puff QID INH 02/27/22 09:00 03/08/22 21:00 Lactobacillus Rhamnosus (Culturelle) 1 cap BID PO 02/28/22 09:00 03/08/22 21:11 Quetiapine Fumarate (SEROquel) 25 mg 0900,1300,1700 PO 03/01/22 09:00 03/08/22 17:15 Diltiazem HCl (Cardizem) 60 mg QID PO 03/01/22 17:00 03/01/22 17:02 DC Cetirizine HCl (ZyrTEC) 10 mg DAILY PO 03/02/22 09:00 03/08/22 08:36 Diltiazem HCl (Cardizem) 60 mg QID PO 03/01/22 21:00 03/08/22 21:11 Mirtazapine (Remeron) 7.5 mg QHS PO 03/01/22 21:00 03/08/22 21:11 Sertraline HCl (Zoloft) 25 mg DAILY PO 03/03/22 09:00 03/08/22 08:36 Methylphenidate HCl (Methylphenidate HCl) 20 mg BIDACBL PO 03/05/22 07:30 03/08/22 12:11 Melatonin (Melatonin) 3 mg PRN QHS PRN PO INSOMNIA 03/05/22 22:00 03/08/22 21:16 Trazodone HCl (Desyrel) 50 mg PRN QHS PRN PO INSOMNIA, MAY REPEAT X1 03/08/22 21:00 03/08/22 21:16 Current Medications Medications (Trade) Dose Ordered Sig/Sameer Route PRN Reason Start Time Stop Time Status Last Admin Dose Admin Trazodone HCl (Desyrel) 50 mg PRN QHS PRN PO INSOMNIA, MAY REPEAT X1 03/08/22 21:00 03/08/22 21:16 I have reviewed the current psychotropics carefully including drug interactions. Risk benefit ratio favors no change other than as noted in my dictated progress note. 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
--- NOTE | 2022-03-08 23:54 | NUR ---
Pt withdrawn to his room this evening. Pt irritable, asking repeatedly for pain medication. PRN Lortab, Melatonin and Trazodone administered with whole HS medications. Pt currently sleeping.
[2022-03-09 06:09] VITALS: BP 146/92
--- NOTE | 2022-03-09 06:40 | PDOC ---
Exam Note: Christiano Note: This note is a late entry for 03/07/2022 covers elements not covered in my initial note. Subjective: The patient was seen individually on 03/07/2022, discussed and reviewed the chart with Nishi BEATTY. The patient slept 2-3/4 hours previous night. I met with him in his room. He was more awake, seated on the side of his bed, less grumpy. He had telephone conversation with his [id number]. He is convinced that short-acting Ritalin would do better than extended release but when I checked with the nursing staff, in fact he was getting the short- acting Ritalin. We will defer to Dr. Willingham if this needs to be increased at some point for his narcolepsy which is still problematic. Review of Systems: Impaired ambulation, in wheelchair. No CV, , pulmonary, eye system symptoms on review. Mental Status Exam: Patient is oriented to himself and situation. Speech has some latency, coherent. Abstraction fair. Computation impaired. Language function intact. Attention span short. Mood and affect somewhat withdrawn. No suicidal or homicidal ideation. Laboratory Data: Reviewed. Impression: Bipolar 1 disorder, mixed with psychotic features. Major neurocognitive disorder, Alzheimer, vascular with delusion. Obstructive sleep apnea and narcolepsy. Plan: Continue psychotropics unchanged. Reviewed drug interactions and risk- benefit ratio. Adjust further as clinically indicated. We will defer to Dr. Willingham for adjusting the Ritalin. Assessment: Vital Signs/I&O: Vital Signs Date Time Temp Pulse Resp B/P (MAP) Pulse Ox O2 Delivery O2 Flow Rate FiO2 03/09/22 06:09 97.2 65 22 146/92 (110) 93 03/08/22 15:39 Room Air I & O 03/08/22 03/08/22 03/09/22 15:00 23:00 07:00 Intake Total 600 ml 480 ml Balance 600 ml 480 ml Current Medications: Meds: Current Medications Medications (Trade) Dose Ordered Sig/Sameer Route PRN Reason Start Time Stop Time Status Last Admin Dose Admin Trazodone HCl (Desyrel) 50 mg PRN QHS PRN PO INSOMNIA, MAY REPEAT X1 03/08/22 21:00 03/08/22 21:16 I have reviewed the current psychotropics carefully including drug interactions. Risk benefit ratio favors no change other than as noted in my dictated progress note. 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
--- NOTE | 2022-03-09 06:55 | PDOC ---
Exam Note: Christiano Note: This note is a late entry for 03/08/2022 covers elements not covered in my initial note. Subjective: The patient was seen individually on 03/08/2022, discussed and reviewed the chart with Nishi BEATTY. The patient slept 3-1/4 hours poorly previous night. He is somewhat demanding. He sleeps off and on during the day due to his narcolepsy and that is probably the reason he is up at night, wanting pain medications. Review of Systems: Positive for pain. Impaired ambulation, in wheelchair. No CV, , pulmonary, eye system symptoms on review. Mental Status Exam: Patient is oriented to himself and situation. Speech has some latency, coherent. Abstraction fair. Computation impaired. Language function intact. Attention span short. Mood and affect somewhat withdrawn. No suicidal or homicidal ideation. Laboratory Data: Reviewed. Impression: Bipolar 1 disorder, mixed with psychotic features. Major neurocognitive disorder, Alzheimer, vascular with delusion. Obstructive sleep apnea and narcolepsy. Plan: Continue psychotropics unchanged. Reviewed drug interactions and risk- benefit ratio. Adjust further as clinically indicated. Start trazodone 50 mg h.s. p.r.n. insomnia, may repeat x1. Assessment: Vital Signs/I&O: Vital Signs Date Time Temp Pulse Resp B/P (MAP) Pulse Ox O2 Delivery O2 Flow Rate FiO2 03/09/22 06:09 97.2 65 22 146/92 (110) 93 03/08/22 15:39 Room Air I & O 03/08/22 03/08/22 03/09/22 14:59 22:59 06:59 Intake Total 600 ml 480 ml Balance 600 ml 480 ml Current Medications: Meds: Current Medications Medications (Trade) Dose Ordered Sig/Sameer Route PRN Reason Start Time Stop Time Status Last Admin Dose Admin Trazodone HCl (Desyrel) 50 mg PRN QHS PRN PO INSOMNIA, MAY REPEAT X1 03/08/22 21:00 03/08/22 21:16 I have reviewed the current psychotropics carefully including drug interactions. Risk benefit ratio favors no change other than as noted in my dictated progress note. 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
[2022-03-09] MEDS: IPRATROPIUM/ALBUTEROL 20/100mcg/INH INHALER. INH SCH ×4 (08:30→20:43)
[2022-03-09] MEDS: LACTOBACILLUS RHAMNOSUS GG 1 CAPSULE. PO SCH ×2 (08:31→20:44)
[2022-03-09] MEDS: QUEtiapine 25 MG TABLET. PO SCH ×3 (08:31→17:07)
[2022-03-09] MEDS: dilTIAZem HCL 30 MG TABLET PO SCH ×4 (08:31→20:44)
[2022-03-09] MEDS: METHYLPHENIDATE HCL 5 MG TABLET PO SCH ×2 (08:31→12:17)
[2022-03-09] MEDS: PANTOPRAZOLE 40 MG TABLET. PO SCH (08:31)
[2022-03-09] MEDS: SERTRALINE 25 MG TABLET. PO SCH (08:31)
[2022-03-09] MEDS: ASPIRIN ENTERIC COATED 81 MG TABLET.DR. PO SCH (08:31)
[2022-03-09] MEDS: METOPROLOL TART IMMED RELEASE 50 MG TABLET PO SCH ×2 (08:31→20:44)
[2022-03-09] MEDS: ENOXAPARIN 40 MG/0.4 ML SYRINGE. SQ SCH (08:31)
[2022-03-09] MEDS: NICOTINE 21MG PATCH. TD SCH (08:32)
[2022-03-09] MEDS: CETIRIZINE HCL 10 MG TABLET PO SCH (08:32)
[2022-03-09] MEDS: HYDROcodone/APAP 5/325MG 1 TAB TABLET PO PRN ×2 (12:18→17:13)
--- NOTE | 2022-03-09 14:07 | NUR ---
Nursing note: Patient in dinning room for medications & assessment. He is compliant with medications taken whole. He is A/O X4. Patient c/o 8/10 back pain, PRN pain medication given per order. He is calm, cooperative, somewhat demanding at times, & withdrawn to room coming out for meals only. He propels self in w/c & self transfers. He is currently sitting in his bed resting with his eyes closed. Will continue to monitor.
[2022-03-09 15:40] VITALS: BP 114/71
[2022-03-09] MEDS: MIRTAZAPINE 15 MG TABLET PO SCH (21:15)
--- NOTE | 2022-03-09 21:33 | PDOC ---
Exam Note: Christiano Note: Please also refer to the separate dictated note~for this date of service dictated separately.~Patient seen individually. Discussed the patient with Nursing staff reviewed the chart.~Reviewed interim history and current functioning. Reviewed vital signs,~Labs/ Radiology~and current medications noted below. Continue current treatment with the changes noted in the dictated addendum note Assessment: Vital Signs/I&O: Vital Signs Date Time Temp Pulse Resp B/P (MAP) Pulse Ox O2 Delivery O2 Flow Rate FiO2 03/09/22 20:44 68 114/71 03/09/22 15:40 98.1 16 94 03/08/22 15:39 Room Air I & O 03/08/22 03/08/22 03/09/22 15:00 23:00 07:00 Intake Total 600 ml 480 ml Balance 600 ml 480 ml Current Medications: Meds: Current Medications Medications (Trade) Dose Ordered Sig/Sameer Route PRN Reason Start Time Stop Time Status Last Admin Dose Admin Acetaminophen (Tylenol) 650 mg PRN Q6HRS PRN PO MILD PAIN / TEMP > 100.3'F 02/26/22 14:15 03/06/22 20:35 Multi-Ingredient Ointment (Analgesic [place]) 1 omer PRN QID PRN TP MUSCLE PAIN 02/26/22 14:15 Al Hydroxide/Mg Hydroxide (Mylanta Plus Xs) 15 ml PRN AFTMEALHC PRN PO DYSPEPSIA 02/26/22 14:15 Magnesium Hydroxide (Milk Of Magnesia) 2,400 mg PRN QHS PRN PO CONSTIPATION 02/26/22 14:15 Nicotine (Nicoderm Cq 21mg Patch) 1 patch DAILY TD 02/26/22 15:00 03/09/22 08:32 Diltiazem HCl (Cardizem) 90 mg Q6HRS PO 02/26/22 18:00 02/27/22 05:27 DC 02/26/22 17:31 Enoxaparin Sodium (Lovenox 40mg Syringe) 40 mg DAILY SQ 02/27/22 09:00 03/09/22 08:31 Acetaminophen/ Hydrocodone Bitart (Lortab 5/325) 1 tab PRN Q4HRS PRN PO MOD-SEV PAIN 02/26/22 15:45 03/09/22 17:13 Albuterol/ Ipratropium (Combivent Respimat 20-100 Mcg) 1 puff Q6HRS INH 02/26/22 18:00 02/27/22 05:27 DC 02/26/22 21:08 Levofloxacin (Levaquin) 750 mg DAILY PO 02/27/22 09:00 03/01/22 08:59 DC 02/28/22 08:26 Metoprolol Tartrate (Lopressor) 50 mg BID PO 02/26/22 21:00 03/09/22 20:44 Olanzapine (ZyPREXA ZYDIS) 5 mg PRN Q6HRS PRN PO ANXIETY / AGITATION 02/26/22 15:45 03/07/22 13:54 Albuterol Sulfate (Ventolin Hfa Inhaler) 1 puff PRN Q6HRS PRN INH SOA 02/26/22 16:30 03/02/22 12:53 Aspirin (Aspirin Enteric Coated) 162 mg DAILY PO 02/27/22 09:00 03/09/22 08:31 Pantoprazole Sodium (Protonix) 40 mg DAILYAC PO 02/27/22 07:30 03/09/22 08:31 Nicotine (Nicoderm Cq 21mg Patch) 1 patch DAILY TD 02/27/22 09:00 02/26/22 16:13 DC Diltiazem HCl (Cardizem) 90 mg QID PO 02/27/22 09:00 03/01/22 16:54 DC 03/01/22 16:19 Albuterol/ Ipratropium (Combivent Respimat 20-100 Mcg) 1 puff QID INH 02/27/22 09:00 03/09/22 20:43 Lactobacillus Rhamnosus (Culturelle) 1 cap BID PO 02/28/22 09:00 03/09/22 20:44 Quetiapine Fumarate (SEROquel) 25 mg 0900,1300,1700 PO 03/01/22 09:00 03/09/22 17:07 Diltiazem HCl (Cardizem) 60 mg QID PO 03/01/22 17:00 03/01/22 17:02 DC Cetirizine HCl (ZyrTEC) 10 mg DAILY PO 03/02/22 09:00 03/09/22 08:32 Diltiazem HCl (Cardizem) 60 mg QID PO 03/01/22 21:00 03/09/22 20:44 Mirtazapine (Remeron) 7.5 mg QHS PO 03/01/22 21:00 03/09/22 16:57 DC 03/08/22 21:11 Sertraline HCl (Zoloft) 25 mg DAILY PO 03/03/22 09:00 03/09/22 08:31 Methylphenidate HCl (Methylphenidate HCl) 20 mg BIDACBL PO 03/05/22 07:30 03/09/22 12:17 Melatonin (Melatonin) 3 mg PRN QHS PRN PO INSOMNIA 03/05/22 22:00 03/08/22 21:16 Trazodone HCl (Desyrel) 50 mg PRN QHS PRN PO INSOMNIA, March X1 03/08/22 21:00 03/08/22 21:16 Mirtazapine (Remeron) 15 mg QHS PO 03/09/22 21:00 03/09/22 21:15 Current Medications Medications (Trade) Dose Ordered Sig/Sameer Route PRN Reason Start Time Stop Time Status Last Admin Dose Admin Mirtazapine (Remeron) 15 mg QHS PO 03/09/22 21:00 03/09/22 21:15 I have reviewed the current psychotropics carefully including drug interactions. Risk benefit ratio favors no change other than as noted in my dictated progress note. 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
--- NOTE | 2022-03-10 01:08 | NUR ---
Jeramie was in his room for assessment and med pass. A&O x 4, calm, cooperative. Flat affect, isolated in his room. Compliant in taking medications whole in applesauce. Self propels in his wheel chair. Complained of anxiety and was given Zyprexa 5 mg at 2333. Is now resting quietly in bed.
[2022-03-10 06:10] VITALS: BP 121/64
[2022-03-10] MEDS: CETIRIZINE HCL 10 MG TABLET PO SCH (08:17)
[2022-03-10] MEDS: ASPIRIN ENTERIC COATED 81 MG TABLET.DR. PO SCH (08:17)
[2022-03-10] MEDS: LACTOBACILLUS RHAMNOSUS GG 1 CAPSULE. PO SCH ×2 (08:17→19:54)
[2022-03-10] MEDS: dilTIAZem HCL 30 MG TABLET PO SCH ×4 (08:17→19:55)
[2022-03-10] MEDS: PANTOPRAZOLE 40 MG TABLET. PO SCH (08:17)
[2022-03-10] MEDS: NICOTINE 21MG PATCH. TD SCH (08:17)
[2022-03-10] MEDS: SERTRALINE 25 MG TABLET. PO SCH (08:18)
[2022-03-10] MEDS: METOPROLOL TART IMMED RELEASE 50 MG TABLET PO SCH ×2 (08:18→19:55)
[2022-03-10] MEDS: QUEtiapine 25 MG TABLET. PO SCH ×3 (08:18→16:36)
[2022-03-10] MEDS: ENOXAPARIN 40 MG/0.4 ML SYRINGE. SQ SCH (08:19)
[2022-03-10] MEDS: METHYLPHENIDATE HCL 5 MG TABLET PO SCH ×2 (08:23→11:55)
[2022-03-10] MEDS: IPRATROPIUM/ALBUTEROL 20/100mcg/INH INHALER. INH SCH ×4 (08:23→19:57)
--- NOTE | 2022-03-10 10:02 | PDOC ---
Exam Note: Christiano Note: This note is a late entry for 03/09/2022 covers elements not covered in my initial note. Subjective: The patient was seen individually on 03/09/2022, discussed and reviewed the chart with Talia BEATTY. The patient slept 4-1/2 hours previous night. Overall he has been calmer, is intermittently demanding, somewhat withdrawn to his room. Average sleep 3-1/2 hours. Overall he is more awake during the day and wants Ritalin for his narcolepsy. We discussed whether to increase it and the patient prefers to leave it unchanged but we will wait for Dr. Aldridge follow up with him on this. Review of Systems: Impaired ambulation, in wheelchair. No CV, , pulmonary, eye system symptoms on review. Mental Status Exam: Patient is awake, alert and oriented. Speech coherent but low in volume. Abstraction fair. Computation impaired. Language function intact. Attention span short. He is less obsessive, anxious and paranoid. He followed me around the unit since he had some more questions on his medications and I addressed with him at some length. No suicidal or homicidal ideation. Mood and affect withdrawn, still somewhat dysphoric, anxious but improved. Laboratory Data: Reviewed. Impression: Bipolar 1 disorder, mixed with psychotic features. Major neurocognitive disorder, Alzheimer, vascular with delusion. Obstructive sleep apnea and narcolepsy. Plan: Continue psychotropics unchanged. Reviewed drug interactions and risk- benefit ratio. Given his ongoing insomnia we will increase Remeron to 15 mg h.s. and continue trazodone p.r.n. Maintain Zoloft, Seroquel unchanged together with Ritalin for now, the latter for narcolepsy. Adjust further as clinically indicated. Assessment: Vital Signs/I&O: Vital Signs Date Time Temp Pulse Resp B/P (MAP) Pulse Ox O2 Delivery O2 Flow Rate FiO2 03/10/22 08:18 66 121/64 03/10/22 06:10 97.7 18 94 Room Air I & O 03/09/22 03/09/22 03/10/22 15:00 23:00 07:00 Intake Total 600 ml 390 ml Balance 600 ml 390 ml Current Medications: Meds: Current Medications Medications (Trade) Dose Ordered Sig/Sameer Route PRN Reason Start Time Stop Time Status Last Admin Dose Admin Mirtazapine (Remeron) 15 mg QHS PO 03/09/22 21:00 03/09/22 21:15 I have reviewed the current psychotropics carefully including drug interactions. Risk benefit ratio favors no change other than as noted in my dictated progress note. 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
--- NOTE | 2022-03-10 18:40 | NUR ---
Jeramie was in dining for assessment and med pass. A&O x 4, calm, cooperative. Flat affect, isolated in his room. Compliant in taking medications whole in pudding. Self propels in his wheel chair. pt has been resting most of the day in his room. he did come for all meal times. new orders to d/c seroquel per dr. parisi.
[2022-03-10] MEDS: MIRTAZAPINE 15 MG TABLET PO SCH (19:57)
--- NOTE | 2022-03-10 21:43 | PDOC ---
Exam Note: Christiano Note: Please also refer to the separate dictated note~for this date of service dictated separately.~Patient seen individually. Discussed the patient with Nursing staff reviewed the chart.~Reviewed interim history and current functioning. Reviewed vital signs,~Labs/ Radiology~and current medications noted below. Continue current treatment with the changes noted in the dictated addendum note Assessment: Vital Signs/I&O: Vital Signs Date Time Temp Pulse Resp B/P (MAP) Pulse Ox O2 Delivery O2 Flow Rate FiO2 03/10/22 19:55 72 144/73 03/10/22 06:10 97.7 18 94 Room Air I & O 03/09/22 03/09/22 03/10/22 15:00 23:00 07:00 Intake Total 600 ml 390 ml Balance 600 ml 390 ml Current Medications: Meds: Current Medications Medications (Trade) Dose Ordered Sig/Sameer Route PRN Reason Start Time Stop Time Status Last Admin Dose Admin Acetaminophen (Tylenol) 650 mg PRN Q6HRS PRN PO MILD PAIN / TEMP > 100.3'F 02/26/22 14:15 03/06/22 20:35 Multi-Ingredient Ointment (Analgesic [place]) 1 omer PRN QID PRN TP MUSCLE PAIN 02/26/22 14:15 Al Hydroxide/Mg Hydroxide (Mylanta Plus Xs) 15 ml PRN AFTMEALHC PRN PO DYSPEPSIA 02/26/22 14:15 Magnesium Hydroxide (Milk Of Magnesia) 2,400 mg PRN QHS PRN PO CONSTIPATION 02/26/22 14:15 Nicotine (Nicoderm Cq 21mg Patch) 1 patch DAILY TD 02/26/22 15:00 03/10/22 08:17 Diltiazem HCl (Cardizem) 90 mg Q6HRS PO 02/26/22 18:00 02/27/22 05:27 DC 02/26/22 17:31 Enoxaparin Sodium (Lovenox 40mg Syringe) 40 mg DAILY SQ 02/27/22 09:00 03/10/22 08:19 Acetaminophen/ Hydrocodone Bitart (Lortab 5/325) 1 tab PRN Q4HRS PRN PO MOD-SEV PAIN 02/26/22 15:45 03/09/22 17:13 Albuterol/ Ipratropium (Combivent Respimat 20-100 Mcg) 1 puff Q6HRS INH 02/26/22 18:00 02/27/22 05:27 DC 02/26/22 21:08 Levofloxacin (Levaquin) 750 mg DAILY PO 02/27/22 09:00 03/01/22 08:59 DC 02/28/22 08:26 Metoprolol Tartrate (Lopressor) 50 mg BID PO 02/26/22 21:00 03/10/22 19:55 Olanzapine (ZyPREXA ZYDIS) 5 mg PRN Q6HRS PRN PO ANXIETY / AGITATION 02/26/22 15:45 03/09/22 23:33 Albuterol Sulfate (Ventolin Hfa Inhaler) 1 puff PRN Q6HRS PRN INH SOA 02/26/22 16:30 03/02/22 12:53 Aspirin (Aspirin Enteric Coated) 162 mg DAILY PO 02/27/22 09:00 03/10/22 08:17 Pantoprazole Sodium (Protonix) 40 mg DAILYAC PO 02/27/22 07:30 03/10/22 08:17 Nicotine (Nicoderm Cq 21mg Patch) 1 patch DAILY TD 02/27/22 09:00 02/26/22 16:13 DC Diltiazem HCl (Cardizem) 90 mg QID PO 02/27/22 09:00 03/01/22 16:54 DC 03/01/22 16:19 Albuterol/ Ipratropium (Combivent Respimat 20-100 Mcg) 1 puff QID INH 02/27/22 09:00 03/10/22 19:57 Lactobacillus Rhamnosus (Culturelle) 1 cap BID PO 02/28/22 09:00 03/10/22 19:54 Quetiapine Fumarate (SEROquel) 25 mg 0900,1300,1700 PO 03/01/22 09:00 03/10/22 18:33 DC 03/10/22 16:36 Diltiazem HCl (Cardizem) 60 mg QID PO 03/01/22 17:00 03/01/22 17:02 DC Cetirizine HCl (ZyrTEC) 10 mg DAILY PO 03/02/22 09:00 03/10/22 08:17 Diltiazem HCl (Cardizem) 60 mg QID PO 03/01/22 21:00 03/10/22 19:55 Mirtazapine (Remeron) 7.5 mg QHS PO 03/01/22 21:00 03/09/22 16:57 DC 03/08/22 21:11 Sertraline HCl (Zoloft) 25 mg DAILY PO 03/03/22 09:00 03/10/22 08:18 Methylphenidate HCl (Methylphenidate HCl) 20 mg BIDACBL PO 03/05/22 07:30 03/10/22 11:55 Melatonin (Melatonin) 3 mg PRN QHS PRN PO INSOMNIA 03/05/22 22:00 03/08/22 21:16 Trazodone HCl (Desyrel) 50 mg PRN QHS PRN PO INSOMNIA, March X1 03/08/22 21:00 03/08/22 21:16 Mirtazapine (Remeron) 15 mg QHS PO 03/09/22 21:00 03/10/22 19:57 Quetiapine Fumarate (SEROquel) 25 mg 0900,1700 PO 03/11/22 09:00 I have reviewed the current psychotropics carefully including drug interactions. Risk benefit ratio favors no change other than as noted in my dictated progress note. 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
--- NOTE | 2022-03-10 21:55 | NUR ---
Nursing Note The patient was located in his room for his assessment and medication pass. The patient was alert to name, date and location. The patient was pleasant during interactions with this nurse. The patient took his medication whole with apple sauce. The patient is currently sleeping in his room.
[2022-03-11] MEDS: HYDROcodone/APAP 5/325MG 1 TAB TABLET PO PRN (01:01)
--- NOTE | 2022-03-11 05:42 | PN ---
DATE: 03/03/2022 REFERRING PHYSICIAN: Dr. Ann. SUBJECTIVE: The patient denies any new medical or neurological complaints; however, he continued to have excessive daytime sleepiness. The patient has been somewhat agitated today. Therefore, he was given Zyprexa on regular basis. He denies chest pain or shortness of breath. OBJECTIVE: GENERAL: Obese male, not in acute distress. He is somewhat drowsy, but he answers a few questions. VITAL SIGNS: Blood pressure 118/79, respiratory rate 22, pulse is 76 and regular, oxygen 95% on room air and temperature 98.3. HEENT: Normocephalic, atraumatic. Otherwise unremarkable. NECK: Supple, negative for carotid bruit, lymphadenopathy, or thyromegaly. LUNGS: Clear to A and P. CARDIOVASCULAR: Regular rate and rhythm. Normal S1, S2. ABDOMEN: Soft. EXTREMITIES: Negative for cyanosis, clubbing or pedal edema. NEUROLOGIC: Mental status: The patient is drowsy, opens eyes to commands, but he does not follow any commands due to drowsiness. Pupils are equal and reactive to light. He is somewhat follow one-step commands, but he does not answer all questions. Therefore, his mental status examination is limited at this time due to drowsiness. He moves his upper and lower extremities equally. Sensory examination revealed normal pinprick and light touch senses. Deep tendon reflexes were symmetric and hypoactive. Gait not tested. The patient ambulated with wheelchair. IMPRESSION: 1. Longstanding history of narcolepsy and obstructive sleep apnea. 2. Multiple psychiatric problems including bipolar disorders, early dementia, and behavior disturbances with intermittent psychosis. 3. History of atrial fibrillation, not present at this time. RECOMMENDATIONS: 1. Await for previous report of comprehensive sleep study and multiple sleep latency tests. 2. If the documented report is positive for narcolepsy, we will start the patient on central nervous system stimulant as Ritalin or Adderall. EBEN/NICK/LESLIE DR: EBEN/joon TID: [id number]
--- NOTE | 2022-03-11 05:48 | PN ---
DATE: 03/05/2022 SUBJECTIVE: The patient was seen today in a progress visit. He has been sleeping excessively during the day. We received a report from [facility], indicated that the patient has had a history of narcolepsy and obstructive sleep apnea. Currently, the patient denies any headaches, visual disturbances, nausea, vomiting, chest pain, shortness of breath or palpitation. OBJECTIVE: GENERAL: A well-developed, well-nourished male in no acute distress. VITAL SIGNS: Blood pressure 114/75, respiratory rate 20, pulse is 73 and regular, oxygen saturation 98% and temperature 98. HEENT: Normocephalic, atraumatic, otherwise unremarkable. NECK: Supple, negative for carotid bruit, lymphadenopathy or thyromegaly. LUNGS: Clear to A and P. CARDIOVASCULAR: Regular rate and rhythm. Normal S1, S2. ABDOMEN: Soft. EXTREMITIES: Negative for cyanosis, clubbing or pedal edema. NEUROLOGIC: Mental status: The patient is alert and oriented to himself and situation. Speech is slow, but coherent. The patient denies hallucination or delusion today. Cranial nerves intact and possible bilateral hearing loss. He moves all upper and lower extremities. Deep tendon reflexes were asymmetric and hypoactive, with absent Achilles responses. Gait not tested. IMPRESSION: 1. Longstanding history of obstructive sleep apnea and narcolepsy. 2. Multiple psychiatric problems to include possible early dementia, bipolar disorder and intermittent psychosis. 3. Visual hallucinations. RECOMMENDATIONS: 1. We will start the patient on Ritalin ER 20 mg in the morning and 20 mg for narcolepsy. 2. Continue with current medical and psychiatric care. AMRIT/KAVON DR: Sterling TID: [id number]
[2022-03-11 05:57] VITALS: BP 131/74
--- NOTE | 2022-03-11 06:17 | PDOC ---
Exam Note: Christiano Note: This note is a late entry for 03/10/2022 covers elements not covered in my initial note. Subjective: The patient was seen individually on 03/10/2022, discussed and reviewed the chart with Marilee BEATTY. The patient slept 7-1/4 hours previous night. Overall he has had a good day. He is somewhat sedated during the day and we will stop 1 oclock Seroquel 25 mg. Review of Systems: Impaired ambulation, in wheelchair. No CV, , pulmonary, eye system symptoms on review. Hard of hearing. Positive for tiredness. Mental Status Exam: Patient is awake, alert and oriented, quite drowsy. I met with him in his room. Speech moderate latency, often response is monosyllabic. Abstraction fair. Computation impaired. Language function intact. Mood and affect withdrawn. Laboratory Data: Reviewed. Impression: Bipolar 1 disorder, mixed with psychotic features. Major neurocognitive disorder, Alzheimer, vascular with delusion. Obstructive sleep apnea and narcolepsy. Plan: Continue psychotropics unchanged. Reviewed drug interactions and risk- benefit ratio. Given his daytime sedation, we will stop the Seroquel 25 mg at 1300. Assessment: Vital Signs/I&O: Vital Signs Date Time Temp Pulse Resp B/P (MAP) Pulse Ox O2 Delivery O2 Flow Rate FiO2 03/11/22 05:57 97.3 56 18 131/74 (93) 93 Room Air I & O 03/10/22 03/10/22 03/11/22 15:00 23:00 07:00 Intake Total 720 ml 600 ml Balance 720 ml 600 ml Labs: Laboratory Tests Test 03/10/22 14:00 POC SARS CoV-2 Antigen Negative (NEGATIVE) Current Medications: I have reviewed the current psychotropics carefully including drug interactions. Risk benefit ratio favors no change other than as noted in my dictated progress note. 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
--- NOTE | 2022-03-11 06:42 | PN ---
DATE: 03/02/2022 SUBJECTIVE: The patient was seen today in neurologic clinic in followup visit. He continues to have excessive daytime sleepiness. He also had intermittent visual hallucination as seeing snake in his room. He denies headaches, visual disturbances, chest pain, shortness of breath or palpitation. OBJECTIVE: GENERAL: A well-developed, well-nourished male, not in acute distress. VITAL SIGNS: Blood pressure 154/89, respiratory rate 18, pulse is 64, afebrile, oxygen saturation 98% on room air. HEENT: Normocephalic, atraumatic, otherwise unremarkable. NECK: Supple, negative for carotid bruit, lymphadenopathy or thyromegaly. LUNGS: Clear to A and P. CARDIOVASCULAR: Regular rhythm. Normal S1, S2. ABDOMEN: Soft. Bowel sounds positive. EXTREMITIES: Negative for cyanosis, clubbing or pedal edema. NEUROLOGIC: Mental status: The patient is alert and oriented to himself and situation. Speech is slow, but coherent. There is no language dysfunction. The patient recalls 1/3 after 1 and 3 minutes. Judgment and abstracting thinking are fair. The patient stated he is seeing snakes sometimes in his room. Cranial nerves are intact. He possibly has mild bilateral hearing loss. Motor exam: No focal muscle bulk wasting. The tone is normal. The strength is 4/5 throughout. Sensory examination revealed normal pinprick and light touch senses. Deep tendon reflexes were asymmetric and hypoactive with absent Achilles responses. Gait: The patient uses a chair for ambulation. IMPRESSION: 1. Longstanding history of narcolepsy diagnosed many years ago. 2. Possible early dementia. 3. Bipolar disorder with intermittent psychotic features. 4. History of atrial fibrillation, but not present at this time. RECOMMENDATIONS: 1. Continue with current medical and psychiatric care. 2. Await for comprehensive sleep study and multiple sleep latency test for narcolepsy. YOBANY DR: Sterling TID: [id number]
[2022-03-11] MEDS: ENOXAPARIN 40 MG/0.4 ML SYRINGE. SQ SCH (08:11)
[2022-03-11] MEDS: IPRATROPIUM/ALBUTEROL 20/100mcg/INH INHALER. INH SCH ×4 (08:11→20:34)
[2022-03-11] MEDS: NICOTINE 21MG PATCH. TD SCH (08:11)
[2022-03-11] MEDS: ASPIRIN ENTERIC COATED 81 MG TABLET.DR. PO SCH (08:12)
[2022-03-11] MEDS: LACTOBACILLUS RHAMNOSUS GG 1 CAPSULE. PO SCH ×2 (08:12→20:32)
[2022-03-11] MEDS: METOPROLOL TART IMMED RELEASE 50 MG TABLET PO SCH ×2 (08:12→20:33)
[2022-03-11] MEDS: PANTOPRAZOLE 40 MG TABLET. PO SCH (08:12)
[2022-03-11] MEDS: dilTIAZem HCL 30 MG TABLET PO SCH ×4 (08:12→20:32)
[2022-03-11] MEDS: CETIRIZINE HCL 10 MG TABLET PO SCH (08:12)
[2022-03-11] MEDS: SERTRALINE 25 MG TABLET. PO SCH (08:12)
[2022-03-11] MEDS: METHYLPHENIDATE HCL 5 MG TABLET PO SCH ×2 (08:14→11:30)
[2022-03-11] MEDS: QUEtiapine 25 MG TABLET. PO SCH ×2 (08:14→17:00)
--- NOTE | 2022-03-11 09:41 | CONS ---
DATE OF CONSULTATION: 03/01/2022 NEURO CONSULTATION REFERRING PHYSICIAN: Dr. Ann. REASON FOR CONSULTATION: History of narcolepsy and obstructive sleep apnea. HISTORY OF PRESENT ILLNESS: This is an 81-year-old right-handed male who was [facility]/2022 on account of intermittent psychosis with disturbed behavior. According to the chart, the patient was admitted for his underlying psychiatric stabilizations. He was transferred from [facility] in [place]. Apparently, he was initially admitted to [facility] for fracture of the femur. After he went to rehabilitation, the patient escaped from the rehabilitation center, but a few days later, he was found naked with confusion. He was admitted back to [facility] in [place]. The patient was having disturbed behavior, agitated and hallucinating. He refused his medications and he stated he is seeing snakes in his room. Neuro consult was requested because the patient has longstanding history of narcolepsy for many years. He has been on amphetamine for that; however, he has not been taking that medicine because of the insurance conflict. During the interview, the patient stated he has been on Adderall for several years and he was diagnosed with narcolepsy and obstructive sleep apnea by [facility]. Currently, the patient denies any headaches, head injuries, nausea, vomiting, chest pain, shortness of breath or palpitation. He has been off central nervous system stimulant for a long time. However, we are still waiting for the results of the study performed at [facility]. PAST MEDICAL HISTORY: Significant for atrial fibrillation, obstructive sleep apnea, narcolepsy as described above, congestive heart failure. PAST SURGICAL HISTORY: Positive for recent femur fracture, required surgical reduction. PAST PSYCHIATRIC HISTORY: Positive for substance abuse and bipolar disorder. FAMILY HISTORY: Noncontributory. SOCIAL HISTORY: The patient lives at home. He has 2 sons. He smokes, but he denies alcohol drinking. CURRENT HOME MEDICATIONS: Include Combivent inhaler, aspirin, Lovenox 40 mg subcutaneous daily, Protonix, metoprolol, hydrocodone, olanzapine, nicotine patches. PHYSICAL EXAMINATION: GENERAL: Well-developed, well-nourished male, not in acute distress. He weighs 89.1 pounds. ADDENDUM PHYSICAL EXAMINATION: GENERAL: Well-developed, well-nourished male in no acute distress. He weighs 89.1 kilos. VITAL SIGNS: Blood pressure 115/66, respiratory rate 18, pulse is 69, temperature is 97.7, oxygen saturation 93% on room air. HEENT: Normocephalic, atraumatic, otherwise, unremarkable. NECK: Supple, negative for carotid bruit, lymphadenopathy or thyromegaly. LUNGS: Clear to A and P. CARDIOVASCULAR: Regular rate and rhythm, normal S1, S2. There is no S3, S4 or murmur. ABDOMEN: Soft. Bowel sounds positive. EXTREMITIES: Negative for cyanosis, clubbing or pedal edema. NEUROLOGIC: 1. Mental status: The patient is alert and oriented to himself and situation. The speech is slow, but coherent. Naming and repetition is normal. The patient recalls 1/3 objects after 3 minutes. Judgment and abstracting thinking are fair. The patient denies hallucination or delusion. 2. Cranial nerves: Visual rick are full. The pupils are reactive to light and accommodation. The extraocular movements are intact. There is no nystagmus. There is no facial motor or sensory deficit. Hearing appeared to be intact. The palate is elevated symmetrically. Sternocleidomastoid muscles are powerful bilaterally. The patient shrugs his shoulders symmetrically, protrudes his tongue in the midline without fasciculation or atrophy. 3. Motor exam: No focal muscle bulk wasting. The tone is normal. The strength is 4/5 throughout. 4. Sensory examination revealed normal pinprick and light touch senses. 5. Deep tendon reflexes were asymmetric and hypoactive with absent Achilles responses. 6. Gait not tested, as the patient uses a wheelchair for ambulation for unsteady stance. LABORATORY DATA: From 02/28/2022 revealed white blood cells of 5.8 thousand, hemoglobin 12.4, hematocrit 38, platelet count 293,000. Chemistry revealed a sodium of 141, potassium 3.5, chloride 108, CO2 of 26, BUN 16, creatinine 0.9, glucose 91, calcium 8.8. Vitamin D is low at 21, but thyroid profile is normal. Urinalysis is negative for urinary tract infections. COVID PCR is not detected. IMPRESSION: 1. Longstanding history of obstructive sleep apnea and narcolepsy, has been on amphetamine in the past, diagnosed at the [facility]. 2. Status post left humeral fracture repair. 3. Multiple psychiatric problems to include possible early dementia, bipolar disorders, behavior disturbances and intermittent hallucinations. RECOMMENDATIONS: 1. Continue with current medical and psychiatric care. 2. Await for official report of comprehensive sleep study and multiple sleep latency tests from [facility]. EBEN/ZOE/LESLIE DR: Sterling TID: [id number]
[2022-03-11 16:04] VITALS: BP 115/70
--- NOTE | 2022-03-11 18:05 | NUR ---
Pt up in wc for meals. Compliant with meds and cares. Argumentative at times but is redirectable.
[2022-03-11] MEDS: traZODone 50 MG TABLET. PO PRN (20:32)
[2022-03-11] MEDS: MIRTAZAPINE 15 MG TABLET PO SCH (20:33)
--- NOTE | 2022-03-11 21:32 | PDOC ---
Exam Note: Christiano Note: Please also refer to the separate dictated note~for this date of service dictated separately.~Patient seen individually. Discussed the patient with Nursing staff reviewed the chart.~Reviewed interim history and current functioning. Reviewed vital signs,~Labs/ Radiology~and current medications noted below. Continue current treatment with the changes noted in the dictated addendum note Assessment: Vital Signs/I&O: Vital Signs Date Time Temp Pulse Resp B/P (MAP) Pulse Ox O2 Delivery O2 Flow Rate FiO2 03/11/22 20:33 66 151/84 03/11/22 16:04 98.0 20 95 Room Air I & O 03/10/22 03/10/22 03/11/22 15:00 23:00 07:00 Intake Total 720 ml 600 ml Balance 720 ml 600 ml Current Medications: Meds: Current Medications Medications (Trade) Dose Ordered Sig/Sameer Route PRN Reason Start Time Stop Time Status Last Admin Dose Admin Acetaminophen (Tylenol) 650 mg PRN Q6HRS PRN PO MILD PAIN / TEMP > 100.3'F 02/26/22 14:15 03/06/22 20:35 Multi-Ingredient Ointment (Analgesic [place]) 1 omer PRN QID PRN TP MUSCLE PAIN 02/26/22 14:15 Al Hydroxide/Mg Hydroxide (Mylanta Plus Xs) 15 ml PRN AFTMEALHC PRN PO DYSPEPSIA 02/26/22 14:15 Magnesium Hydroxide (Milk Of Magnesia) 2,400 mg PRN QHS PRN PO CONSTIPATION 02/26/22 14:15 Nicotine (Nicoderm Cq 21mg Patch) 1 patch DAILY TD 02/26/22 15:00 03/11/22 08:11 Diltiazem HCl (Cardizem) 90 mg Q6HRS PO 02/26/22 18:00 02/27/22 05:27 DC 02/26/22 17:31 Enoxaparin Sodium (Lovenox 40mg Syringe) 40 mg DAILY SQ 02/27/22 09:00 03/11/22 08:11 Acetaminophen/ Hydrocodone Bitart (Lortab 5/325) 1 tab PRN Q4HRS PRN PO MOD-SEV PAIN 02/26/22 15:45 03/11/22 01:01 Albuterol/ Ipratropium (Combivent Respimat 20-100 Mcg) 1 puff Q6HRS INH 02/26/22 18:00 02/27/22 05:27 DC 02/26/22 21:08 Levofloxacin (Levaquin) 750 mg DAILY PO 02/27/22 09:00 03/01/22 08:59 DC 02/28/22 08:26 Metoprolol Tartrate (Lopressor) 50 mg BID PO 02/26/22 21:00 03/11/22 20:33 Olanzapine (ZyPREXA ZYDIS) 5 mg PRN Q6HRS PRN PO ANXIETY / AGITATION 02/26/22 15:45 03/11/22 04:45 Albuterol Sulfate (Ventolin Hfa Inhaler) 1 puff PRN Q6HRS PRN INH SOA 02/26/22 16:30 03/02/22 12:53 Aspirin (Aspirin Enteric Coated) 162 mg DAILY PO 02/27/22 09:00 03/11/22 08:12 Pantoprazole Sodium (Protonix) 40 mg DAILYAC PO 02/27/22 07:30 03/11/22 08:12 Nicotine (Nicoderm Cq 21mg Patch) 1 patch DAILY TD 02/27/22 09:00 02/26/22 16:13 DC Diltiazem HCl (Cardizem) 90 mg QID PO 02/27/22 09:00 03/01/22 16:54 DC 03/01/22 16:19 Albuterol/ Ipratropium (Combivent Respimat 20-100 Mcg) 1 puff QID INH 02/27/22 09:00 03/11/22 20:34 Lactobacillus Rhamnosus (Culturelle) 1 cap BID PO 02/28/22 09:00 03/11/22 20:32 Quetiapine Fumarate (SEROquel) 25 mg 0900,1300,1700 PO 03/01/22 09:00 03/10/22 18:33 DC 03/10/22 16:36 Diltiazem HCl (Cardizem) 60 mg QID PO 03/01/22 17:00 03/01/22 17:02 DC Cetirizine HCl (ZyrTEC) 10 mg DAILY PO 03/02/22 09:00 03/11/22 08:12 Diltiazem HCl (Cardizem) 60 mg QID PO 03/01/22 21:00 03/11/22 20:32 Mirtazapine (Remeron) 7.5 mg QHS PO 03/01/22 21:00 03/09/22 16:57 DC 03/08/22 21:11 Sertraline HCl (Zoloft) 25 mg DAILY PO 03/03/22 09:00 03/11/22 17:16 DC 03/11/22 08:12 Methylphenidate HCl (Methylphenidate HCl) 20 mg BIDACBL PO 03/05/22 07:30 03/11/22 11:30 Melatonin (Melatonin) 3 mg PRN QHS PRN PO 1ST CHOICE INSOMNIA 03/05/22 22:00 03/08/22 21:16 Trazodone HCl (Desyrel) 50 mg PRN QHS PRN PO 2ND CHOICE INSOMNIA, MR x1 03/08/22 21:00 03/11/22 20:32 Mirtazapine (Remeron) 15 mg QHS PO 03/09/22 21:00 03/11/22 20:33 Quetiapine Fumarate (SEROquel) 25 mg 0900,1700 PO 03/11/22 09:00 03/11/22 17:00 Sertraline HCl (Zoloft) 50 mg DAILY PO 03/12/22 09:00 Current Medications Medications (Trade) Dose Ordered Sig/Sameer Route PRN Reason Start Time Stop Time Status Last Admin Dose Admin Quetiapine Fumarate (SEROquel) 25 mg 0900,1700 PO 03/11/22 09:00 03/11/22 17:00 I have reviewed the current psychotropics carefully including drug interactions. Risk benefit ratio favors no change other than as noted in my dictated progress note. 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
--- NOTE | 2022-03-11 22:48 | NUR ---
Nursing Note The patient was located in his room laying in bed for his assessment and medication pass. The patient was alert to name, year and location. The patient was irritable during interactions. The patient took his medication whole floated in apple sauce. The patient is currently sleeping in his room.
[2022-03-12] MEDS: HYDROcodone/APAP 5/325MG 1 TAB TABLET PO PRN ×2 (00:26→14:13)
--- NOTE | 2022-03-12 00:42 | NUR ---
Nursing Note The patient reports moderate to severe generalized pain. The patient requested and received PRN Hydrocodone @0056.
[2022-03-12 06:01] VITALS: BP 144/69
--- NOTE | 2022-03-12 06:28 | PDOC ---
Exam Note: Christiano Note: This note is a late entry for 03/11/2022 covers elements not covered in my initial note. Subjective: The patient was seen individually on 03/11/2022, discussed and reviewed the chart with Rhoda BEATTY. The patient slept 5 hours previous night. I met with him in his room. He has been little irritable crabby per nursing report. He is less sedated since the 1 p.m. Seroquel was stopped. Review of Systems: Impaired ambulation, in wheelchair. No CV, , pulmonary, eye system symptoms on review. Hard of hearing. Positive for tiredness. Mental Status Exam: Patient is awake, alert and oriented. I met with him in his room. Speech moderate latency, often response is monosyllabic. Abstraction fair. Computation impaired. Language function intact. Mood and affect withdrawn. Laboratory Data: Reviewed. Impression: Bipolar 1 disorder, mixed with psychotic features. Major neurocognitive disorder, Alzheimer, vascular with delusion. Obstructive sleep apnea and narcolepsy. Plan: Continue psychotropics unchanged. Reviewed drug interactions and risk- benefit ratio. Increase Zoloft from 25 mg a day to 50 mg a day. Assessment: Vital Signs/I&O: Vital Signs Date Time Temp Pulse Resp B/P (MAP) Pulse Ox O2 Delivery O2 Flow Rate FiO2 03/12/22 06:01 97.8 65 20 144/69 (94) 94 03/12/22 01:07 Room Air I & O 03/11/22 03/11/22 03/12/22 15:00 23:00 07:00 Intake Total 960 ml 580 ml Balance 960 ml 580 ml Current Medications: Meds: Current Medications Medications (Trade) Dose Ordered Sig/Sameer Route PRN Reason Start Time Stop Time Status Last Admin Dose Admin Quetiapine Fumarate (SEROquel) 25 mg 0900,1700 PO 03/11/22 09:00 03/11/22 17:00 I have reviewed the current psychotropics carefully including drug interactions. Risk benefit ratio favors no change other than as noted in my dictated progress note. 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
[2022-03-12] MEDS: ASPIRIN ENTERIC COATED 81 MG TABLET.DR. PO SCH (08:28)
[2022-03-12] MEDS: LACTOBACILLUS RHAMNOSUS GG 1 CAPSULE. PO SCH ×2 (08:28→20:58)
[2022-03-12] MEDS: METHYLPHENIDATE HCL 5 MG TABLET PO SCH ×2 (08:28→12:02)
[2022-03-12] MEDS: PANTOPRAZOLE 40 MG TABLET. PO SCH (08:28)
[2022-03-12] MEDS: dilTIAZem HCL 30 MG TABLET PO SCH ×4 (08:28→20:58)
[2022-03-12] MEDS: METOPROLOL TART IMMED RELEASE 50 MG TABLET PO SCH ×2 (08:29→20:58)
[2022-03-12] MEDS: QUEtiapine 25 MG TABLET. PO SCH ×2 (08:29→17:11)
[2022-03-12] MEDS: IPRATROPIUM/ALBUTEROL 20/100mcg/INH INHALER. INH SCH ×4 (08:31→20:59)
[2022-03-12] MEDS: CETIRIZINE HCL 10 MG TABLET PO SCH (08:32)
[2022-03-12] MEDS: ACETAMINOPHEN 325 MG TABLET PO PRN (08:34)
[2022-03-12] MEDS: NICOTINE 21MG PATCH. TD SCH (08:34)
[2022-03-12] MEDS: ENOXAPARIN 40 MG/0.4 ML SYRINGE. SQ SCH (08:37)
[2022-03-12] MEDS: SERTRALINE 50 MG TABLET. PO SCH (08:39)
--- NOTE | 2022-03-12 11:05 | NUR ---
Treatment team update: Pt is eating 100% of meals and sleeping 4.5 hours per night. Pt is calm and cooperative but can be demanding and irritable at times. It is questionable on whether or not pt is medication-seeking as he has for Lortab and wanted to have the medication that came with Loratab to prevent itching; although pt never received anything with Lortab before. Nursing will see if pt Ritalin could be increased with the Neurologist. Pt dtr in law expressed concerns with SW on placement as he is requesting to go home. Staff discussed safety concerns and will recommend that pt discharge to [facility] or some facility with nursing care.
--- NOTE | 2022-03-12 11:05 | NUR ---
WEEKLY ACTIVITY THERAPY NOTE Date of Admission: 02/26/22 Date of AT Assessment:02/27 Precipitating behaviors that initiated intake and admission: thinks he's being trapped in a room, anxious, bizarre thought processes, hallucinating, refusing meds & cares, convinced there was a snake in the room, agitated, grabbed nurse's hand Goal aimed: increase stress management and relaxation skills Initial Goal: Pt will participate in at least three Activity Therapy sessions before discharge Weekly progress towards goal: did not achieve, 0/3 Group participation level: zero Weekly highlights: Behaviors observed: withdrawn, quiet and content Plan: no change to goal at this time Beneficial adaptations:
[2022-03-12 16:19] VITALS: BP 116/73
--- NOTE | 2022-03-12 16:48 | NUR ---
Nsg Note; Jeramie has been drowsy today, retreating to his bed to sleep between meals. He feeds himself, takes his meds floated in applesauce, and is able to transfer himself to the bed, w/c, and toilet.
[2022-03-12] MEDS: MIRTAZAPINE 15 MG TABLET PO SCH (20:58)
--- NOTE | 2022-03-12 21:43 | PDOC ---
Exam Note: Christiano Note: Please also refer to the separate dictated note~for this date of service dictated separately.~Patient seen individually. Discussed the patient with Nursing staff reviewed the chart.~Reviewed interim history and current functioning. Reviewed vital signs,~Labs/ Radiology~and current medications noted below. Continue current treatment with the changes noted in the dictated addendum note Assessment: Vital Signs/I&O: Vital Signs Date Time Temp Pulse Resp B/P (MAP) Pulse Ox O2 Delivery O2 Flow Rate FiO2 03/12/22 20:58 63 128/68 03/12/22 16:19 97.9 20 92 Room Air I & O 03/11/22 03/11/22 03/12/22 14:59 22:59 06:59 Intake Total 960 ml 580 ml Balance 960 ml 580 ml Current Medications: Meds: Current Medications Medications (Trade) Dose Ordered Sig/Sameer Route PRN Reason Start Time Stop Time Status Last Admin Dose Admin Acetaminophen (Tylenol) 650 mg PRN Q6HRS PRN PO MILD PAIN / TEMP > 100.3'F 02/26/22 14:15 03/12/22 08:34 Multi-Ingredient Ointment (Analgesic [place]) 1 omer PRN QID PRN TP MUSCLE PAIN 02/26/22 14:15 Al Hydroxide/Mg Hydroxide (Mylanta Plus Xs) 15 ml PRN AFTMEALHC PRN PO DYSPEPSIA 02/26/22 14:15 Magnesium Hydroxide (Milk Of Magnesia) 2,400 mg PRN QHS PRN PO CONSTIPATION 02/26/22 14:15 Nicotine (Nicoderm Cq 21mg Patch) 1 patch DAILY TD 02/26/22 15:00 03/12/22 08:34 Diltiazem HCl (Cardizem) 90 mg Q6HRS PO 02/26/22 18:00 02/27/22 05:27 DC 02/26/22 17:31 Enoxaparin Sodium (Lovenox 40mg Syringe) 40 mg DAILY SQ 02/27/22 09:00 03/12/22 13:38 DC 03/12/22 08:37 Acetaminophen/ Hydrocodone Bitart (Lortab 5/325) 1 tab PRN Q4HRS PRN PO MOD-SEV PAIN 02/26/22 15:45 03/12/22 14:13 Albuterol/ Ipratropium (Combivent Respimat 20-100 Mcg) 1 puff Q6HRS INH 02/26/22 18:00 02/27/22 05:27 DC 02/26/22 21:08 Levofloxacin (Levaquin) 750 mg DAILY PO 02/27/22 09:00 03/01/22 08:59 DC 02/28/22 08:26 Metoprolol Tartrate (Lopressor) 50 mg BID PO 02/26/22 21:00 03/12/22 20:58 Olanzapine (ZyPREXA ZYDIS) 5 mg PRN Q6HRS PRN PO ANXIETY / AGITATION 02/26/22 15:45 03/11/22 04:45 Albuterol Sulfate (Ventolin Hfa Inhaler) 1 puff PRN Q6HRS PRN INH SOA 02/26/22 16:30 03/02/22 12:53 Aspirin (Aspirin Enteric Coated) 162 mg DAILY PO 02/27/22 09:00 03/12/22 08:28 Pantoprazole Sodium (Protonix) 40 mg DAILYAC PO 02/27/22 07:30 03/12/22 08:28 Nicotine (Nicoderm Cq 21mg Patch) 1 patch DAILY TD 02/27/22 09:00 02/26/22 16:13 DC Diltiazem HCl (Cardizem) 90 mg QID PO 02/27/22 09:00 03/01/22 16:54 DC 03/01/22 16:19 Albuterol/ Ipratropium (Combivent Respimat 20-100 Mcg) 1 puff QID INH 02/27/22 09:00 03/12/22 20:59 Lactobacillus Rhamnosus (Culturelle) 1 cap BID PO 02/28/22 09:00 03/12/22 20:58 Quetiapine Fumarate (SEROquel) 25 mg 0900,1300,1700 PO 03/01/22 09:00 03/10/22 18:33 DC 03/10/22 16:36 Diltiazem HCl (Cardizem) 60 mg QID PO 03/01/22 17:00 03/01/22 17:02 DC Cetirizine HCl (ZyrTEC) 10 mg DAILY PO 03/02/22 09:00 03/12/22 08:32 Diltiazem HCl (Cardizem) 60 mg QID PO 03/01/22 21:00 03/12/22 20:58 Mirtazapine (Remeron) 7.5 mg QHS PO 03/01/22 21:00 03/09/22 16:57 DC 03/08/22 21:11 Sertraline HCl (Zoloft) 25 mg DAILY PO 03/03/22 09:00 03/11/22 17:16 DC 03/11/22 08:12 Methylphenidate HCl (Methylphenidate HCl) 20 mg BIDACBL PO 03/05/22 07:30 03/12/22 12:02 Melatonin (Melatonin) 3 mg PRN QHS PRN PO 1ST CHOICE INSOMNIA 03/05/22 22:00 03/08/22 21:16 Trazodone HCl (Desyrel) 50 mg PRN QHS PRN PO 2ND CHOICE INSOMNIA, MR x1 03/08/22 21:00 03/11/22 20:32 Mirtazapine (Remeron) 15 mg QHS PO 03/09/22 21:00 03/12/22 20:58 Quetiapine Fumarate (SEROquel) 25 mg 0900,1700 PO 03/11/22 09:00 03/12/22 17:11 Sertraline HCl (Zoloft) 50 mg DAILY PO 03/12/22 09:00 03/12/22 08:39 Current Medications Medications (Trade) Dose Ordered Sig/Sameer Route PRN Reason Start Time Stop Time Status Last Admin Dose Admin Sertraline HCl (Zoloft) 50 mg DAILY PO 03/12/22 09:00 03/12/22 08:39 I have reviewed the current psychotropics carefully including drug interactions. Risk benefit ratio favors no change other than as noted in my dictated progress note. 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
--- NOTE | 2022-03-12 23:43 | NUR ---
Nursing Note The patient was withdrawn to his room while awake this shift. The patient was cooperative with cares and assessment. The patient was alert to self, date and location. The patient took his medication in apple sauce. The patient reported having a nose bleed while laying in bed. The patient is currently sleeping in his room.
[2022-03-13] MEDS: HYDROcodone/APAP 5/325MG 1 TAB TABLET PO PRN (02:59)
[2022-03-13 05:51] VITALS: BP 145/77
[2022-03-13 06:48] LABS: BASO % 1 % (0-3); EOS # 0.2 x10^3/uL (0.0-0.7); EOS % 2 % (0-3); LYMPH # 1.5 x10^3/uL (1.0-4.8); LYMPH % 20 % (24-48); MEAN CORPUSCULAR HEMOGLOBIN 30 pg (25-35); MEAN CORPUSCULAR HGB CONC 33 g/dL (31-37); MEAN CORPUSCULAR VOLUME 92 fL (79-100); MONO # 0.7 x10^3/uL (0.0-1.1); MONO % 9 % (0-9); NEUT # 5.2 x10^3uL (1.8-7.7); NEUT % 68 % (31-73); PLATELET COUNT 304 x10^3/uL (140-400); RED BLOOD COUNT 4.37 x10^6/uL (4.30-5.70); RED CELL DISTRIBUTION WIDTH 15.5 % (11.5-14.5); WHITE BLOOD COUNT 7.6 x10^3/uL (4.0-11.0)
[2022-03-13 07:03] LABS: ALBUMIN/GLOBULIN RATIO 0.7 (1.0-1.7); CALCIUM 9.1 mg/dL (8.5-10.1); CREATININE 0.8 mg/dL (0.7-1.3); GFR 92.8; POTASSIUM 4.1 mmol/L (3.5-5.1); TOTAL BILIRUBIN 0.3 mg/dL (0.2-1.0); TOTAL PROTEIN 7.3 g/dL (6.4-8.2)
--- NOTE | 2022-03-13 07:56 | PDOC ---
Exam Note: Christiano Note: This note is a late entry for 03/12/2022 covers elements not covered in my initial note. Subjective: The patient was reviewed at treatment team meeting individually in the morning on 03/12/2022 with Carlene Viveros, Zara Oates, and Aliya Mehta (social professionals), Aye, activity therapy, and Karly BEATTY, discussed and reviewed the chart. The patient slept 4-3/4 hours previous night. Average sleep 5 hours. Appetite 100%. He has been irritable, argumentative at times, withdrawn. He is somewhat med-seeking at night. He complains of low back pain. He wanted Lortab, but accepted Tylenol at another point. He is also wanting Benadryl without any clear reason for it. Discussed the patients progress, possibility of increasing Ritalin, we will defer to Dr. Willingham. He is wanting to return home but may be best he goes to a more structured facility, trustability and then decision can be made later. Family would prefer for him to be in a more structured facility. I met with him in the evening. Review of Systems: Impaired ambulation, in wheelchair. No CV, , pulmonary, eye system symptoms on review. Hard of hearing. Mental Status Exam: Patient is oriented to himself and situation. Speech has some latency, low in rate and rhythm, low in volume, coherent. Abstraction fair. Computation impaired. Language function intact. Mood and affect withdrawn. Laboratory Data: Reviewed. Impression: Bipolar 1 disorder, mixed with psychotic features. Major neurocognitive disorder, Alzheimer, vascular with delusion. Obstructive sleep apnea and narcolepsy. Plan: Continue psychotropics unchanged. Reviewed drug interactions and risk- benefit ratio. Possibility of increasing Ritalin, we will defer to Dr. Willingham. Assessment: Vital Signs/I&O: Vital Signs Date Time Temp Pulse Resp B/P (MAP) Pulse Ox O2 Delivery O2 Flow Rate FiO2 03/13/22 05:51 98.1 53 20 145/77 (99) 94 Room Air I & O 03/12/22 03/12/22 03/13/22 14:59 22:59 06:59 Intake Total 600 ml 600 ml Output Total 650 ml Balance 600 ml -50 ml Labs: Laboratory Tests Test 03/13/22 06:05 White Blood Count 7.6 x10^3/uL (4.0-11.0) Red Blood Count 4.37 x10^6/uL (4.30-5.70) Hemoglobin 13.0 g/dL (13.0-17.5) Hematocrit 40.0 % (39.0-53.0) Mean Corpuscular Volume 92 fL (79-100) Mean Corpuscular Hemoglobin 30 pg (25-35) Mean Corpuscular Hemoglobin Concent 33 g/dL (31-37) Red Cell Distribution Width 15.5 % (11.5-14.5) H Platelet Count 304 x10^3/uL (140-400) Neutrophils (%) (Auto) 68 % (31-73) Lymphocytes (%) (Auto) 20 % (24-48) L Monocytes (%) (Auto) 9 % (0-9) Eosinophils (%) (Auto) 2 % (0-3) Basophils (%) (Auto) 1 % (0-3) Neutrophils # (Auto) 5.2 x10^3uL (1.8-7.7) Lymphocytes # (Auto) 1.5 x10^3/uL (1.0-4.8) Monocytes # (Auto) 0.7 x10^3/uL (0.0-1.1) Eosinophils # (Auto) 0.2 x10^3/uL (0.0-0.7) Basophils # (Auto) 0.0 x10^3/uL (0.0-0.2) Sodium Level 140 mmol/L (136-145) Potassium Level 4.1 mmol/L (3.5-5.1) Chloride Level 104 mmol/L (98-107) Carbon Dioxide Level 27 mmol/L (21-32) Anion Gap 9 (6-14) Blood Urea Nitrogen 15 mg/dL (8-26) Creatinine 0.8 mg/dL (0.7-1.3) Estimated GFR (Cockcroft-Gault) 92.8 BUN/Creatinine Ratio 19 (6-20) Glucose Level 88 mg/dL (70-99) Calcium Level 9.1 mg/dL (8.5-10.1) Total Bilirubin 0.3 mg/dL (0.2-1.0) Aspartate Amino Transferase (AST) 16 U/L (15-37) Alanine Aminotransferase (ALT) 28 U/L (16-63) Alkaline Phosphatase 129 U/L (46-116) H Total Protein 7.3 g/dL (6.4-8.2) Albumin 3.0 g/dL (3.4-5.0) L Albumin/Globulin Ratio 0.7 (1.0-1.7) L Current Medications: Meds: Current Medications Medications (Trade) Dose Ordered Sig/Sameer Route PRN Reason Start Time Stop Time Status Last Admin Dose Admin Sertraline HCl (Zoloft) 50 mg DAILY PO 03/12/22 09:00 03/12/22 08:39 I have reviewed the current psychotropics carefully including drug interactions. Risk benefit ratio favors no change other than as noted in my dictated progress note. 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
[2022-03-13] MEDS: dilTIAZem HCL 30 MG TABLET PO SCH ×4 (08:06→20:33)
[2022-03-13] MEDS: METHYLPHENIDATE HCL 5 MG TABLET PO SCH ×2 (08:06→12:19)
[2022-03-13] MEDS: LACTOBACILLUS RHAMNOSUS GG 1 CAPSULE. PO SCH ×2 (08:06→20:35)
[2022-03-13] MEDS: ASPIRIN ENTERIC COATED 81 MG TABLET.DR. PO SCH (08:07)
[2022-03-13] MEDS: QUEtiapine 25 MG TABLET. PO SCH ×2 (08:07→17:24)
[2022-03-13] MEDS: CETIRIZINE HCL 10 MG TABLET PO SCH (08:07)
[2022-03-13] MEDS: METOPROLOL TART IMMED RELEASE 50 MG TABLET PO SCH ×2 (08:07→20:34)
[2022-03-13] MEDS: SERTRALINE 50 MG TABLET. PO SCH (08:07)
[2022-03-13] MEDS: PANTOPRAZOLE 40 MG TABLET. PO SCH (08:07)
[2022-03-13] MEDS: IPRATROPIUM/ALBUTEROL 20/100mcg/INH INHALER. INH SCH ×4 (08:09→20:33)
[2022-03-13] MEDS: ACETAMINOPHEN 325 MG TABLET PO PRN ×2 (08:12→20:35)
[2022-03-13] MEDS: NICOTINE 21MG PATCH. TD SCH (08:13)
--- NOTE | 2022-03-13 15:39 | NUR ---
Nsg Note; Jeramie has been more awake and alert today, though he continues to retreat to his room alone between meals. Dr Willingham was called per Dr Ann's request, and Dr Willingham increased the Ritalin to 30 mg BID in an attempt to decrease daytime sleepiness so he can sleep better at night. He is waiting to speak with his [employer], Kristy, who is aware of his request to see her.
[2022-03-13 15:56] VITALS: BP 125/79
[2022-03-13] MEDS: MIRTAZAPINE 15 MG TABLET PO SCH (20:34)
--- NOTE | 2022-03-13 21:37 | PDOC ---
Exam Note: Christiano Note: Please also refer to the separate dictated note~for this date of service dictated separately.~Patient seen individually. Discussed the patient with Nursing staff reviewed the chart.~Reviewed interim history and current functioning. Reviewed vital signs,~Labs/ Radiology~and current medications noted below. Continue current treatment with the changes noted in the dictated addendum note Assessment: Vital Signs/I&O: Vital Signs Date Time Temp Pulse Resp B/P (MAP) Pulse Ox O2 Delivery O2 Flow Rate FiO2 03/13/22 20:34 70 125/79 03/13/22 15:56 97.7 16 93 03/13/22 05:51 Room Air I & O 03/12/22 03/12/22 03/13/22 15:00 23:00 07:00 Intake Total 600 ml 600 ml Output Total 650 ml Balance 600 ml -50 ml Labs: Laboratory Tests Test 03/13/22 06:05 White Blood Count 7.6 x10^3/uL (4.0-11.0) Red Blood Count 4.37 x10^6/uL (4.30-5.70) Hemoglobin 13.0 g/dL (13.0-17.5) Hematocrit 40.0 % (39.0-53.0) Mean Corpuscular Volume 92 fL (79-100) Mean Corpuscular Hemoglobin 30 pg (25-35) Mean Corpuscular Hemoglobin Concent 33 g/dL (31-37) Red Cell Distribution Width 15.5 % (11.5-14.5) H Platelet Count 304 x10^3/uL (140-400) Neutrophils (%) (Auto) 68 % (31-73) Lymphocytes (%) (Auto) 20 % (24-48) L Monocytes (%) (Auto) 9 % (0-9) Eosinophils (%) (Auto) 2 % (0-3) Basophils (%) (Auto) 1 % (0-3) Neutrophils # (Auto) 5.2 x10^3uL (1.8-7.7) Lymphocytes # (Auto) 1.5 x10^3/uL (1.0-4.8) Monocytes # (Auto) 0.7 x10^3/uL (0.0-1.1) Eosinophils # (Auto) 0.2 x10^3/uL (0.0-0.7) Basophils # (Auto) 0.0 x10^3/uL (0.0-0.2) Sodium Level 140 mmol/L (136-145) Potassium Level 4.1 mmol/L (3.5-5.1) Chloride Level 104 mmol/L (98-107) Carbon Dioxide Level 27 mmol/L (21-32) Anion Gap 9 (6-14) Blood Urea Nitrogen 15 mg/dL (8-26) Creatinine 0.8 mg/dL (0.7-1.3) Estimated GFR (Cockcroft-Gault) 92.8 BUN/Creatinine Ratio 19 (6-20) Glucose Level 88 mg/dL (70-99) Calcium Level 9.1 mg/dL (8.5-10.1) Total Bilirubin 0.3 mg/dL (0.2-1.0) Aspartate Amino Transferase (AST) 16 U/L (15-37) Alanine Aminotransferase (ALT) 28 U/L (16-63) Alkaline Phosphatase 129 U/L (46-116) H Total Protein 7.3 g/dL (6.4-8.2) Albumin 3.0 g/dL (3.4-5.0) L Albumin/Globulin Ratio 0.7 (1.0-1.7) L Current Medications: Meds: Laboratory Tests Test 03/13/22 06:05 White Blood Count 7.6 x10^3/uL Red Blood Count 4.37 x10^6/uL Hemoglobin 13.0 g/dL Hematocrit 40.0 % Mean Corpuscular Volume 92 fL Mean Corpuscular Hemoglobin 30 pg Mean Corpuscular Hemoglobin Concent 33 g/dL Red Cell Distribution Width 15.5 % Platelet Count 304 x10^3/uL Neutrophils (%) (Auto) 68 % Lymphocytes (%) (Auto) 20 % Monocytes (%) (Auto) 9 % Eosinophils (%) (Auto) 2 % Basophils (%) (Auto) 1 % Neutrophils # (Auto) 5.2 x10^3uL Lymphocytes # (Auto) 1.5 x10^3/uL Monocytes # (Auto) 0.7 x10^3/uL Eosinophils # (Auto) 0.2 x10^3/uL Basophils # (Auto) 0.0 x10^3/uL Sodium Level 140 mmol/L Potassium Level 4.1 mmol/L Chloride Level 104 mmol/L Carbon Dioxide Level 27 mmol/L Anion Gap 9 Blood Urea Nitrogen 15 mg/dL Creatinine 0.8 mg/dL Estimated GFR (Cockcroft-Gault) 92.8 BUN/Creatinine Ratio 19 Glucose Level 88 mg/dL Calcium Level 9.1 mg/dL Total Bilirubin 0.3 mg/dL Aspartate Amino Transf (AST/SGOT) 16 U/L Alanine Aminotransferase (ALT/SGPT) 28 U/L Alkaline Phosphatase 129 U/L Total Protein 7.3 g/dL Albumin 3.0 g/dL Albumin/Globulin Ratio 0.7 Current Medications Medications (Trade) Dose Ordered Sig/Sameer Route PRN Reason Start Time Stop Time Status Last Admin Dose Admin Acetaminophen (Tylenol) 650 mg PRN Q6HRS PRN PO MILD PAIN / TEMP > 100.3'F 02/26/22 14:15 03/13/22 20:35 Multi-Ingredient Ointment (Analgesic [place]) 1 omer PRN QID PRN TP MUSCLE PAIN 02/26/22 14:15 Al Hydroxide/Mg Hydroxide (Mylanta Plus Xs) 15 ml PRN AFTMEALHC PRN PO DYSPEPSIA 02/26/22 14:15 Magnesium Hydroxide (Milk Of Magnesia) 2,400 mg PRN QHS PRN PO CONSTIPATION 02/26/22 14:15 Nicotine (Nicoderm Cq 21mg Patch) 1 patch DAILY TD 02/26/22 15:00 03/13/22 08:13 Diltiazem HCl (Cardizem) 90 mg Q6HRS PO 02/26/22 18:00 02/27/22 05:27 DC 02/26/22 17:31 Enoxaparin Sodium (Lovenox 40mg Syringe) 40 mg DAILY SQ 02/27/22 09:00 03/12/22 13:38 DC 03/12/22 08:37 Acetaminophen/ Hydrocodone Bitart (Lortab 5/325) 1 tab PRN Q4HRS PRN PO MOD-SEV PAIN 02/26/22 15:45 03/13/22 02:59 Albuterol/ Ipratropium (Combivent Respimat 20-100 Mcg) 1 puff Q6HRS INH 02/26/22 18:00 02/27/22 05:27 DC 02/26/22 21:08 Levofloxacin (Levaquin) 750 mg DAILY PO 02/27/22 09:00 03/01/22 08:59 DC 02/28/22 08:26 Metoprolol Tartrate (Lopressor) 50 mg BID PO 02/26/22 21:00 03/13/22 20:34 Olanzapine (ZyPREXA ZYDIS) 5 mg PRN Q6HRS PRN PO ANXIETY / AGITATION 02/26/22 15:45 03/11/22 04:45 Albuterol Sulfate (Ventolin Hfa Inhaler) 1 puff PRN Q6HRS PRN INH SOA 02/26/22 16:30 03/02/22 12:53 Aspirin (Aspirin Enteric Coated) 162 mg DAILY PO 02/27/22 09:00 03/13/22 08:07 Pantoprazole Sodium (Protonix) 40 mg DAILYAC PO 02/27/22 07:30 03/13/22 08:07 Nicotine (Nicoderm Cq 21mg Patch) 1 patch DAILY TD 02/27/22 09:00 02/26/22 16:13 DC Diltiazem HCl (Cardizem) 90 mg QID PO 02/27/22 09:00 03/01/22 16:54 DC 03/01/22 16:19 Albuterol/ Ipratropium (Combivent Respimat 20-100 Mcg) 1 puff QID INH 02/27/22 09:00 03/13/22 20:33 Lactobacillus Rhamnosus (Culturelle) 1 cap BID PO 02/28/22 09:00 03/13/22 20:35 Quetiapine Fumarate (SEROquel) 25 mg 0900,1300,1700 PO 03/01/22 09:00 03/10/22 18:33 DC 03/10/22 16:36 Diltiazem HCl (Cardizem) 60 mg QID PO 03/01/22 17:00 03/01/22 17:02 DC Cetirizine HCl (ZyrTEC) 10 mg DAILY PO 03/02/22 09:00 03/13/22 08:07 Diltiazem HCl (Cardizem) 60 mg QID PO 03/01/22 21:00 03/13/22 20:33 Mirtazapine (Remeron) 7.5 mg QHS PO 03/01/22 21:00 03/09/22 16:57 DC 03/08/22 21:11 Sertraline HCl (Zoloft) 25 mg DAILY PO 03/03/22 09:00 03/11/22 17:16 DC 03/11/22 08:12 Methylphenidate HCl (Methylphenidate HCl) 20 mg BIDACBL PO 03/05/22 07:30 03/13/22 15:39 DC 03/13/22 12:19 Melatonin (Melatonin) 3 mg PRN QHS PRN PO 1ST CHOICE INSOMNIA 03/05/22 22:00 03/08/22 21:16 Trazodone HCl (Desyrel) 50 mg PRN QHS PRN PO 2ND CHOICE INSOMNIA, MR x1 03/08/22 21:00 03/11/22 20:32 Mirtazapine (Remeron) 15 mg QHS PO 03/09/22 21:00 03/13/22 20:34 Quetiapine Fumarate (SEROquel) 25 mg 0900,1700 PO 03/11/22 09:00 03/13/22 17:24 Sertraline HCl (Zoloft) 50 mg DAILY PO 03/12/22 09:00 03/13/22 08:07 Methylphenidate HCl (Methylphenidate HCl) 30 mg BIDACBL PO 03/14/22 07:30 I have reviewed the current psychotropics carefully including drug interactions. Risk benefit ratio favors no change other than as noted in my dictated progress note. 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
--- NOTE | 2022-03-13 23:45 | NUR ---
Patient is located in his room on assumption of care. He remains gruff in manner, but is less irritable than usual. He complained of lower back pain and requested Tylenol, which he received with his HS meds. He has had no agitated behaviors, voiced no delusions or hallucinations this shift. Continues to wake intermittently but appears to be sleeping comfortably at present time.
[2022-03-14 05:55] VITALS: BP 146/74
[2022-03-14] MEDS: LACTOBACILLUS RHAMNOSUS GG 1 CAPSULE. PO SCH ×2 (08:02→20:27)
[2022-03-14] MEDS: METOPROLOL TART IMMED RELEASE 50 MG TABLET PO SCH ×2 (08:03→20:26)
[2022-03-14] MEDS: PANTOPRAZOLE 40 MG TABLET. PO SCH (08:03)
[2022-03-14] MEDS: CETIRIZINE HCL 10 MG TABLET PO SCH (08:03)
[2022-03-14] MEDS: QUEtiapine 25 MG TABLET. PO SCH ×2 (08:03→17:07)
[2022-03-14] MEDS: SERTRALINE 50 MG TABLET. PO SCH (08:03)
[2022-03-14] MEDS: dilTIAZem HCL 30 MG TABLET PO SCH ×4 (08:03→20:26)
[2022-03-14] MEDS: METHYLPHENIDATE HCL 5 MG TABLET PO SCH ×2 (08:03→11:30)
[2022-03-14] MEDS: ASPIRIN ENTERIC COATED 81 MG TABLET.DR. PO SCH (08:03)
[2022-03-14] MEDS: NICOTINE 21MG PATCH. TD SCH (08:04)
[2022-03-14] MEDS: IPRATROPIUM/ALBUTEROL 20/100mcg/INH INHALER. INH SCH ×4 (08:04→20:25)
[2022-03-14] MEDS: ACETAMINOPHEN 325 MG TABLET PO PRN ×2 (08:11→20:27)
[2022-03-14] MEDS: HYDROcodone/APAP 5/325MG 1 TAB TABLET PO PRN (13:03)
[2022-03-14 15:00] VITALS: BP 127/75
--- NOTE | 2022-03-14 17:44 | NUR ---
Nsg Note; Jeramie was awake and alert through the morning but refused the Ritalin dose scheduled for 1130 and stated he was worried about being able to sleep tonight if he took that med. He spent the afternoon in his bed sleeping. He general mood has improved as he speaks to staff more gently and less grouchy, is grateful for the care and says please and thank you at times.
[2022-03-14] MEDS: MIRTAZAPINE 15 MG TABLET PO SCH (20:27)
--- NOTE | 2022-03-14 21:57 | PDOC ---
Exam Note: Christiano Note: This note is a late entry for 03/13/2022 covers elements not covered in my initial note. Subjective: The patient was seen individually on 03/13/2022, discussed and reviewed the chart with Karly BEATTY. The patient slept 4-1/[address] Willingham did increase his Ritalin from 20 mg b.i.d. to 30 mg b.i.d. for the narcolepsy and he has been more awake. We may reduce the Seroquel further. He continues to isolate in his room. Social service staff discussed with him about the placement and he was not agreeable to this and we will just have to see how he does. He is compliant to medications, less irritable. He was upset that one of the demented patient was wandering into his room and we addressed ways around this. Review of Systems: Impaired ambulation, in wheelchair. No CV, , pulmonary, eye system symptoms on review. Hard of hearing. Positive for back pain, was okay taking Tylenol, rather than opioid. He does admit to sudden sleep spells. Mental Status Exam: Patient is oriented to himself and situation. I met with him in his room at length to discuss all of the above. Speech has some latency, low in rate and rhythm, low in volume, coherent. Abstraction fair. Computation impaired. Language function intact. Mood and affect withdrawn. Laboratory Data: Reviewed. Impression: Bipolar 1 disorder, mixed with psychotic features. Major neurocognitive disorder, Alzheimer, vascular with delusion. Obstructive sleep apnea and narcolepsy. Plan: Continue psychotropics unchanged. Reviewed drug interactions and risk- benefit ratio. We may need to increase Ritalin further and reduce Seroquel depending on his progress. Attempt to persevere with placement rather than returning home. Assessment: Vital Signs/I&O: Vital Signs Date Time Temp Pulse Resp B/P (MAP) Pulse Ox O2 Delivery O2 Flow Rate FiO2 03/14/22 20:26 70 148/78 03/14/22 15:00 98.2 18 92 Room Air I & O 03/13/22 03/13/22 03/14/22 15:00 23:00 07:00 Intake Total 840 ml 720 ml Balance 840 ml 720 ml Current Medications: Meds: Current Medications Medications (Trade) Dose Ordered Sig/Sameer Route PRN Reason Start Time Stop Time Status Last Admin Dose Admin Methylphenidate HCl (Methylphenidate HCl) 30 mg BIDACBL PO 03/14/22 07:30 03/14/22 08:03 I have reviewed the current psychotropics carefully including drug interactions. Risk benefit ratio favors no change other than as noted in my dictated progress note. 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
--- NOTE | 2022-03-14 21:58 | PDOC ---
Exam Note: Christiano Note: Please also refer to the separate dictated note~for this date of service dictated separately.~Patient seen individually. Discussed the patient with Nursing staff reviewed the chart.~Reviewed interim history and current functioning. Reviewed vital signs,~Labs/ Radiology~and current medications noted below. Continue current treatment with the changes noted in the dictated addendum note Assessment: Vital Signs/I&O: Vital Signs Date Time Temp Pulse Resp B/P (MAP) Pulse Ox O2 Delivery O2 Flow Rate FiO2 03/14/22 20:26 70 148/78 03/14/22 15:00 98.2 18 92 Room Air I & O 03/13/22 03/13/22 03/14/22 15:00 23:00 07:00 Intake Total 840 ml 720 ml Balance 840 ml 720 ml Current Medications: Meds: Current Medications Medications (Trade) Dose Ordered Sig/Sameer Route PRN Reason Start Time Stop Time Status Last Admin Dose Admin Acetaminophen (Tylenol) 650 mg PRN Q6HRS PRN PO MILD PAIN / TEMP > 100.3'F 02/26/22 14:15 03/14/22 20:27 Multi-Ingredient Ointment (Analgesic [place]) 1 omer PRN QID PRN TP MUSCLE PAIN 02/26/22 14:15 Al Hydroxide/Mg Hydroxide (Mylanta Plus Xs) 15 ml PRN AFTMEALHC PRN PO DYSPEPSIA 02/26/22 14:15 Magnesium Hydroxide (Milk Of Magnesia) 2,400 mg PRN QHS PRN PO CONSTIPATION 02/26/22 14:15 Nicotine (Nicoderm Cq 21mg Patch) 1 patch DAILY TD 02/26/22 15:00 03/14/22 08:04 Diltiazem HCl (Cardizem) 90 mg Q6HRS PO 02/26/22 18:00 02/27/22 05:27 DC 02/26/22 17:31 Enoxaparin Sodium (Lovenox 40mg Syringe) 40 mg DAILY SQ 02/27/22 09:00 03/12/22 13:38 DC 03/12/22 08:37 Acetaminophen/ Hydrocodone Bitart (Lortab 5/325) 1 tab PRN Q4HRS PRN PO MOD-SEV PAIN 02/26/22 15:45 03/14/22 13:03 Albuterol/ Ipratropium (Combivent Respimat 20-100 Mcg) 1 puff Q6HRS INH 02/26/22 18:00 02/27/22 05:27 DC 02/26/22 21:08 Levofloxacin (Levaquin) 750 mg DAILY PO 02/27/22 09:00 03/01/22 08:59 DC 02/28/22 08:26 Metoprolol Tartrate (Lopressor) 50 mg BID PO 02/26/22 21:00 03/14/22 20:26 Olanzapine (ZyPREXA ZYDIS) 5 mg PRN Q6HRS PRN PO ANXIETY / AGITATION 02/26/22 15:45 03/11/22 04:45 Albuterol Sulfate (Ventolin Hfa Inhaler) 1 puff PRN Q6HRS PRN INH SOA 02/26/22 16:30 03/02/22 12:53 Aspirin (Aspirin Enteric Coated) 162 mg DAILY PO 02/27/22 09:00 03/14/22 08:03 Pantoprazole Sodium (Protonix) 40 mg DAILYAC PO 02/27/22 07:30 03/14/22 08:03 Nicotine (Nicoderm Cq 21mg Patch) 1 patch DAILY TD 02/27/22 09:00 02/26/22 16:13 DC Diltiazem HCl (Cardizem) 90 mg QID PO 02/27/22 09:00 03/01/22 16:54 DC 03/01/22 16:19 Albuterol/ Ipratropium (Combivent Respimat 20-100 Mcg) 1 puff QID INH 02/27/22 09:00 03/14/22 20:25 Lactobacillus Rhamnosus (Culturelle) 1 cap BID PO 02/28/22 09:00 03/14/22 20:27 Quetiapine Fumarate (SEROquel) 25 mg 0900,1300,1700 PO 03/01/22 09:00 03/10/22 18:33 DC 03/10/22 16:36 Diltiazem HCl (Cardizem) 60 mg QID PO 03/01/22 17:00 03/01/22 17:02 DC Cetirizine HCl (ZyrTEC) 10 mg DAILY PO 03/02/22 09:00 03/14/22 08:03 Diltiazem HCl (Cardizem) 60 mg QID PO 03/01/22 21:00 03/14/22 20:26 Mirtazapine (Remeron) 7.5 mg QHS PO 03/01/22 21:00 03/09/22 16:57 DC 03/08/22 21:11 Sertraline HCl (Zoloft) 25 mg DAILY PO 03/03/22 09:00 03/11/22 17:16 DC 03/11/22 08:12 Methylphenidate HCl (Methylphenidate HCl) 20 mg BIDACBL PO 03/05/22 07:30 03/13/22 15:39 DC 03/13/22 12:19 Melatonin (Melatonin) 3 mg PRN QHS PRN PO 1ST CHOICE INSOMNIA 03/05/22 22:00 03/08/22 21:16 Trazodone HCl (Desyrel) 50 mg PRN QHS PRN PO 2ND CHOICE INSOMNIA, MR x1 03/08/22 21:00 03/11/22 20:32 Mirtazapine (Remeron) 15 mg QHS PO 03/09/22 21:00 03/14/22 20:27 Quetiapine Fumarate (SEROquel) 25 mg 0900,1700 PO 03/11/22 09:00 03/14/22 17:07 Sertraline HCl (Zoloft) 50 mg DAILY PO 03/12/22 09:00 03/14/22 08:03 Methylphenidate HCl (Methylphenidate HCl) 30 mg BIDACBL PO 03/14/22 07:30 03/14/22 08:03 Current Medications Medications (Trade) Dose Ordered Sig/Sameer Route PRN Reason Start Time Stop Time Status Last Admin Dose Admin Methylphenidate HCl (Methylphenidate HCl) 30 mg BIDACBL PO 03/14/22 07:30 03/14/22 08:03 I have reviewed the current psychotropics carefully including drug interactions. Risk benefit ratio favors no change other than as noted in my dictated progress note. 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
[2022-03-15] MEDS: traZODone 50 MG TABLET. PO PRN (00:42)
--- NOTE | 2022-03-15 00:50 | NUR ---
Patient is located in his room on assumption of care. He is quiet and remains withdrawn to his room unless he needs something. He has been more polite and appreciative in his interactions with staff. He complained of lower back pain and requested Tylenol, which he received with his HS meds. He has had no agitated behaviors, voiced no delusions or hallucinations this shift. Continues to wake intermittently. Patient just requested something for sleep, PRN Trazodone given at 0045, pending effect at this time.
[2022-03-15] MEDS: ACETAMINOPHEN 325 MG TABLET PO PRN ×2 (03:55→20:22)
[2022-03-15 06:02] VITALS: BP 145/88
[2022-03-15] MEDS: METHYLPHENIDATE HCL 5 MG TABLET PO SCH ×2 (08:51→12:21)
[2022-03-15] MEDS: SERTRALINE 50 MG TABLET. PO SCH (08:51)
[2022-03-15] MEDS: CETIRIZINE HCL 10 MG TABLET PO SCH (08:51)
[2022-03-15] MEDS: LACTOBACILLUS RHAMNOSUS GG 1 CAPSULE. PO SCH ×2 (08:51→20:21)
[2022-03-15] MEDS: QUEtiapine 25 MG TABLET. PO SCH ×2 (08:51→17:22)
[2022-03-15] MEDS: METOPROLOL TART IMMED RELEASE 50 MG TABLET PO SCH ×2 (08:51→20:23)
[2022-03-15] MEDS: ASPIRIN ENTERIC COATED 81 MG TABLET.DR. PO SCH (08:53)
[2022-03-15] MEDS: dilTIAZem HCL 30 MG TABLET PO SCH ×4 (08:53→20:23)
[2022-03-15] MEDS: PANTOPRAZOLE 40 MG TABLET. PO SCH (08:53)
[2022-03-15] MEDS: NICOTINE 21MG PATCH. TD SCH (08:54)
[2022-03-15] MEDS: IPRATROPIUM/ALBUTEROL 20/100mcg/INH INHALER. INH SCH ×4 (08:56→20:21)
--- NOTE | 2022-03-15 14:24 | NUR ---
Nursing note: Patient in dinning room for medications & assessment. He is compliant with medications taken whole. He is A/O X4. Patient is calm, cooperative, somewhat demanding at times, & withdrawn to room coming out for meals only. He denies pain at this time. He propels self in w/c & self transfers. He reported to staff that he had a bloody nose through the night, no more so far this shift. He is currently resting in bed with eyes closed. Will continue to monitor.
[2022-03-15 15:51] VITALS: BP 117/69
[2022-03-15] MEDS: MIRTAZAPINE 15 MG TABLET PO SCH (20:21)
--- NOTE | 2022-03-15 21:47 | PDOC ---
Exam Note: Christiano Note: Please also refer to the separate dictated note~for this date of service dictated separately.~Patient seen individually. Discussed the patient with Nursing staff reviewed the chart.~Reviewed interim history and current functioning. Reviewed vital signs,~Labs/ Radiology~and current medications noted below. Continue current treatment with the changes noted in the dictated addendum note Assessment: Vital Signs/I&O: Vital Signs Date Time Temp Pulse Resp B/P (MAP) Pulse Ox O2 Delivery O2 Flow Rate FiO2 03/15/22 20:23 66 127/75 03/15/22 15:51 98.3 20 92 Room Air I & O 03/14/22 03/14/22 03/15/22 15:00 23:00 07:00 Intake Total 480 ml 480 ml Balance 480 ml 480 ml Current Medications: Meds: Current Medications Medications (Trade) Dose Ordered Sig/Sameer Route PRN Reason Start Time Stop Time Status Last Admin Dose Admin Acetaminophen (Tylenol) 650 mg PRN Q6HRS PRN PO MILD PAIN / TEMP > 100.3'F 02/26/22 14:15 03/15/22 20:22 Multi-Ingredient Ointment (Analgesic [place]) 1 omer PRN QID PRN TP MUSCLE PAIN 02/26/22 14:15 Al Hydroxide/Mg Hydroxide (Mylanta Plus Xs) 15 ml PRN AFTMEALHC PRN PO DYSPEPSIA 02/26/22 14:15 Magnesium Hydroxide (Milk Of Magnesia) 2,400 mg PRN QHS PRN PO CONSTIPATION 02/26/22 14:15 Nicotine (Nicoderm Cq 21mg Patch) 1 patch DAILY TD 02/26/22 15:00 03/15/22 08:54 Diltiazem HCl (Cardizem) 90 mg Q6HRS PO 02/26/22 18:00 02/27/22 05:27 DC 02/26/22 17:31 Enoxaparin Sodium (Lovenox 40mg Syringe) 40 mg DAILY SQ 02/27/22 09:00 03/12/22 13:38 DC 03/12/22 08:37 Acetaminophen/ Hydrocodone Bitart (Lortab 5/325) 1 tab PRN Q4HRS PRN PO MOD-SEV PAIN 02/26/22 15:45 03/14/22 13:03 Albuterol/ Ipratropium (Combivent Respimat 20-100 Mcg) 1 puff Q6HRS INH 02/26/22 18:00 02/27/22 05:27 DC 02/26/22 21:08 Levofloxacin (Levaquin) 750 mg DAILY PO 02/27/22 09:00 03/01/22 08:59 DC 02/28/22 08:26 Metoprolol Tartrate (Lopressor) 50 mg BID PO 02/26/22 21:00 03/15/22 20:23 Olanzapine (ZyPREXA ZYDIS) 5 mg PRN Q6HRS PRN PO ANXIETY / AGITATION 02/26/22 15:45 03/11/22 04:45 Albuterol Sulfate (Ventolin Hfa Inhaler) 1 puff PRN Q6HRS PRN INH SOA 02/26/22 16:30 03/02/22 12:53 Aspirin (Aspirin Enteric Coated) 162 mg DAILY PO 02/27/22 09:00 03/15/22 08:53 Pantoprazole Sodium (Protonix) 40 mg DAILYAC PO 02/27/22 07:30 03/15/22 08:53 Nicotine (Nicoderm Cq 21mg Patch) 1 patch DAILY TD 02/27/22 09:00 02/26/22 16:13 DC Diltiazem HCl (Cardizem) 90 mg QID PO 02/27/22 09:00 03/01/22 16:54 DC 03/01/22 16:19 Albuterol/ Ipratropium (Combivent Respimat 20-100 Mcg) 1 puff QID INH 02/27/22 09:00 03/15/22 20:21 Lactobacillus Rhamnosus (Culturelle) 1 cap BID PO 02/28/22 09:00 03/15/22 20:21 Quetiapine Fumarate (SEROquel) 25 mg 0900,1300,1700 PO 03/01/22 09:00 03/10/22 18:33 DC 03/10/22 16:36 Diltiazem HCl (Cardizem) 60 mg QID PO 03/01/22 17:00 03/01/22 17:02 DC Cetirizine HCl (ZyrTEC) 10 mg DAILY PO 03/02/22 09:00 03/15/22 08:51 Diltiazem HCl (Cardizem) 60 mg QID PO 03/01/22 21:00 03/15/22 20:23 Mirtazapine (Remeron) 7.5 mg QHS PO 03/01/22 21:00 03/09/22 16:57 DC 03/08/22 21:11 Sertraline HCl (Zoloft) 25 mg DAILY PO 03/03/22 09:00 03/11/22 17:16 DC 03/11/22 08:12 Methylphenidate HCl (Methylphenidate HCl) 20 mg BIDACBL PO 03/05/22 07:30 03/13/22 15:39 DC 03/13/22 12:19 Melatonin (Melatonin) 3 mg PRN QHS PRN PO 1ST CHOICE INSOMNIA 03/05/22 22:00 03/08/22 21:16 Trazodone HCl (Desyrel) 50 mg PRN QHS PRN PO 2ND CHOICE INSOMNIA, MR x1 03/08/22 21:00 03/15/22 00:42 Mirtazapine (Remeron) 15 mg QHS PO 03/09/22 21:00 03/15/22 20:21 Quetiapine Fumarate (SEROquel) 25 mg 0900,1700 PO 03/11/22 09:00 03/15/22 17:22 Sertraline HCl (Zoloft) 50 mg DAILY PO 03/12/22 09:00 03/15/22 08:51 Methylphenidate HCl (Methylphenidate HCl) 30 mg BIDACBL PO 03/14/22 07:30 03/15/22 12:21 I have reviewed the current psychotropics carefully including drug interactions. Risk benefit ratio favors no change other than as noted in my dictated progress note. 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
--- NOTE | 2022-03-16 05:30 | NUR ---
Patient is located in his room on assumption of care. He is quiet and remains withdrawn to his room unless he needs something. He has been more polite and appreciative in his interactions with staff. He complained of lower back pain and requested Tylenol, which he received with his HS meds. He has had no agitated behaviors, voiced no delusions or hallucinations this shift. Continues to wake intermittently with requests for various things such as snacks or extra blankets. At present time, he is asleep. Will continue to monitor.
[2022-03-16 05:50] VITALS: BP 146/46
--- NOTE | 2022-03-16 08:24 | PDOC ---
Exam Note: Christiano Note: This note is a late entry for 03/14/2022 covers elements not covered in my initial note. Subjective: The patient was seen individually on 03/14/2022, discussed and reviewed the chart with Karly BEATTY. The patient slept 5-3/4 hours previous night. I met with him in his room. Dr. Willingham had increased Ritalin to 30 mg b.i.d. due to his narcolepsy and daytime sedation but the patient refused the second dosage, fearing that it will keep him up at night. We may need to reduce the second dosage to 20 mg and the morning dosage to be continued at 30 mg. Staff is encouraging him to take his medications and if there are adverse effects we will adjust accordingly. Review of Systems: Impaired ambulation, in wheelchair. No CV, , pulmonary, eye system symptoms on review. Hard of hearing. Mental Status Exam: Patient is oriented to himself and situation. I met with him in his room at length to discuss all of the above. Speech has some latency, low in rate and rhythm, low in volume, coherent. Abstraction fair. Computation impaired. Language function intact. Mood and affect withdrawn. Laboratory Data: Reviewed. Impression: Bipolar 1 disorder, mixed with psychotic features. Major neurocogn itive disorder, Alzheimer, vascular with delusion. Obstructive sleep apnea and narcolepsy. Plan: Continue rest psychotropics unchanged. Reviewed drug interactions and risk-benefit ratio. Dr. Willingham had increased Ritalin to 30 mg b.i.d. due to his narcolepsy and daytime sedation but the patient refused the second dosage, fearing that it will keep him up at night. We may need to reduce the second dosage to 20 mg and the morning dosage to be continued at 30 mg. Assessment: Vital Signs/I&O: Vital Signs Date Time Temp Pulse Resp B/P (MAP) Pulse Ox O2 Delivery O2 Flow Rate FiO2 03/16/22 05:50 97.6 96 18 146/46 (79) 93 Room Air I & O 03/15/22 03/15/22 03/16/22 15:00 23:00 07:00 Intake Total 720 ml 720 ml Balance 720 ml 720 ml Current Medications: I have reviewed the current psychotropics carefully including drug interactions. Risk benefit ratio favors no change other than as noted in my dictated progress note. 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
[2022-03-16] MEDS: METHYLPHENIDATE HCL 5 MG TABLET PO SCH ×2 (08:36→12:18)
[2022-03-16] MEDS: IPRATROPIUM/ALBUTEROL 20/100mcg/INH INHALER. INH SCH ×4 (08:36→20:38)
[2022-03-16] MEDS: PANTOPRAZOLE 40 MG TABLET. PO SCH (08:37)
[2022-03-16] MEDS: QUEtiapine 25 MG TABLET. PO SCH ×2 (08:37→17:41)
[2022-03-16] MEDS: ASPIRIN ENTERIC COATED 81 MG TABLET.DR. PO SCH (08:37)
[2022-03-16] MEDS: CETIRIZINE HCL 10 MG TABLET PO SCH (08:37)
[2022-03-16] MEDS: NICOTINE 21MG PATCH. TD SCH (08:37)
[2022-03-16] MEDS: LACTOBACILLUS RHAMNOSUS GG 1 CAPSULE. PO SCH ×2 (08:37→20:39)
[2022-03-16] MEDS: SERTRALINE 50 MG TABLET. PO SCH (08:37)
[2022-03-16] MEDS: METOPROLOL TART IMMED RELEASE 50 MG TABLET PO SCH ×2 (08:47→20:42)
[2022-03-16] MEDS: ACETAMINOPHEN 325 MG TABLET PO PRN ×2 (08:47→20:40)
[2022-03-16] MEDS: dilTIAZem HCL 30 MG TABLET PO SCH ×4 (08:49→20:42)
--- NOTE | 2022-03-16 08:54 | PDOC ---
Exam Note: Christiano Note: This note is a late entry for 03/15/2022 covers elements not covered in my initial note. Subjective: The patient was seen individually on 03/15/2022, discussed and reviewed the chart with Terence BEATTY. The patient slept 6 hours previous night. He has been less irritable, pleasant saying please and thank you to the nursing staff. He does complain of pain but not asking for Lortab as before. He napped after lunch and when I met with him in the evening he was quite awake. Review of Systems: Ambulation impaired, in wheelchair. No CV, , pulmonary, eye system symptoms on review. He does complain of tiredness consequent to his narcolepsy. Mental Status Exam: Patient is oriented to himself and situation. Speech coherent. Abstraction fair. Computation impaired. Language function intact. Mood and affect showing some improvement. Laboratory Data: Reviewed. Impression: Bipolar 1 disorder, mixed with psychotic features. Major neuro cognitive disorder, Alzheimer, vascular with delusion. Obstructive sleep apnea and narcolepsy. Plan: Continue rest psychotropics unchanged. Reviewed drug interactions and risk-benefit ratio. We will continue to adjust the Ritalin but the patient has been refusing his afternoon Ritalin and I addressed with him. Assessment: Vital Signs/I&O: Vital Signs Date Time Temp Pulse Resp B/P (MAP) Pulse Ox O2 Delivery O2 Flow Rate FiO2 03/16/22 08:49 62 158/91 03/16/22 05:50 97.6 18 93 Room Air I & O 03/15/22 03/15/22 03/16/22 14:59 22:59 06:59 Intake Total 720 ml 720 ml Balance 720 ml 720 ml Current Medications: I have reviewed the current psychotropics carefully including drug interactions. Risk benefit ratio favors no change other than as noted in my dictated progress note. 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
--- NOTE | 2022-03-16 13:45 | NUR ---
SW left a message for pt dtr in law/DPOA, Nicolasa to contact MELISSA when possible.
--- NOTE | 2022-03-16 14:45 | NUR ---
SW met with pt who informed SW that he decided that he needed to go home for 30 days before transitioning over to [facility]. SW noted that if he discharges from here he will go straight to [facility]. Pt stated he had things at home he needed to do before going to AL and when SW questioned what was needed, pt was not able to specifically answer. Instead he generically stated "I have to get things in order before I can just go". SW noted that under the circumstances, he would be better suited to discharge straight from the hospital and he shook his head no. Pt was quiet for a second then questioned "will they take my house". SW stated that they could eventually as there was a five year look back period. Pt wanted to know when he would be able to leave and SW noted she would be able to start sending out referrals ARELY. SW to follow up with pt and pt family on placement and [facility].
--- NOTE | 2022-03-16 15:14 | NUR ---
MELISSA returned call to Nicolasa to discuss the recommendation for pt to discharge to placement from [facility]. Nicolasa agreed and noted that they attempted multiple times over the weekend to discuss this with the pt as preparation. MELISSA noted that pt felt that he needed to go home first and Nicolasa reports that he thinks he needs to sell some things before he can go. But they assured him that they could sell it for him and make sure he gets the money in the process. The family is willing to attend to his needs for this so that he can transition straight to [facility]. Nicolasa agrees with the plan and will wait to hear from MELISSA on progress.
--- NOTE | 2022-03-16 15:49 | NUR ---
Nursing note: Patient in dinning room for medications & assessment. He is compliant with medications taken whole. He is A/O X4. Patient was irritable & demanding at breakfast, the rest of the day he has been calm, & cooperative. He is withdrawn to room coming out for meals only or when he wants something. He reported 7/10 generalized pain, PRN pain medication given per order. He propels self in w/c & self transfers. He reported to staff that he had a bloody nose again, this nurse notified , nasal spray order noted. He is currently sitting in his w/c looking out his bedroom window. Will continue to monitor.
[2022-03-16 16:03] VITALS: BP 110/71
[2022-03-16] MEDS: traZODone 100 MG TABLET. PO PRN (20:39)
[2022-03-16] MEDS: MIRTAZAPINE 15 MG TABLET PO SCH (20:40)
--- NOTE | 2022-03-16 21:26 | PDOC ---
Exam Note: Christiano Note: Please also refer to the separate dictated note~for this date of service dictated separately.~Patient seen individually. Discussed the patient with Nursing staff reviewed the chart.~Reviewed interim history and current functioning. Reviewed vital signs,~Labs/ Radiology~and current medications noted below. Continue current treatment with the changes noted in the dictated addendum note Assessment: Vital Signs/I&O: Vital Signs Date Time Temp Pulse Resp B/P (MAP) Pulse Ox O2 Delivery O2 Flow Rate FiO2 03/16/22 20:42 58 133/69 03/16/22 16:03 97.2 16 94 Room Air I & O 03/15/22 03/15/22 03/16/22 14:59 22:59 06:59 Intake Total 720 ml 720 ml Balance 720 ml 720 ml Current Medications: Meds: Current Medications Medications (Trade) Dose Ordered Sig/Sameer Route PRN Reason Start Time Stop Time Status Last Admin Dose Admin Acetaminophen (Tylenol) 650 mg PRN Q6HRS PRN PO MILD PAIN / TEMP > 100.3'F 02/26/22 14:15 03/16/22 20:40 Multi-Ingredient Ointment (Analgesic [place]) 1 omer PRN QID PRN TP MUSCLE PAIN 02/26/22 14:15 Al Hydroxide/Mg Hydroxide (Mylanta Plus Xs) 15 ml PRN AFTMEALHC PRN PO DYSPEPSIA 02/26/22 14:15 Magnesium Hydroxide (Milk Of Magnesia) 2,400 mg PRN QHS PRN PO CONSTIPATION 02/26/22 14:15 Nicotine (Nicoderm Cq 21mg Patch) 1 patch DAILY TD 02/26/22 15:00 03/16/22 08:37 Diltiazem HCl (Cardizem) 90 mg Q6HRS PO 02/26/22 18:00 02/27/22 05:27 DC 02/26/22 17:31 Enoxaparin Sodium (Lovenox 40mg Syringe) 40 mg DAILY SQ 02/27/22 09:00 03/12/22 13:38 DC 03/12/22 08:37 Acetaminophen/ Hydrocodone Bitart (Lortab 5/325) 1 tab PRN Q4HRS PRN PO MOD-SEV PAIN 02/26/22 15:45 03/14/22 13:03 Albuterol/ Ipratropium (Combivent Respimat 20-100 Mcg) 1 puff Q6HRS INH 02/26/22 18:00 02/27/22 05:27 DC 02/26/22 21:08 Levofloxacin (Levaquin) 750 mg DAILY PO 02/27/22 09:00 03/01/22 08:59 DC 02/28/22 08:26 Metoprolol Tartrate (Lopressor) 50 mg BID PO 02/26/22 21:00 03/16/22 08:47 Olanzapine (ZyPREXA ZYDIS) 5 mg PRN Q6HRS PRN PO ANXIETY / AGITATION 02/26/22 15:45 03/11/22 04:45 Albuterol Sulfate (Ventolin Hfa Inhaler) 1 puff PRN Q6HRS PRN INH SOA 02/26/22 16:30 03/02/22 12:53 Aspirin (Aspirin Enteric Coated) 162 mg DAILY PO 02/27/22 09:00 03/16/22 08:37 Pantoprazole Sodium (Protonix) 40 mg DAILYAC PO 02/27/22 07:30 03/16/22 08:37 Nicotine (Nicoderm Cq 21mg Patch) 1 patch DAILY TD 02/27/22 09:00 02/26/22 16:13 DC Diltiazem HCl (Cardizem) 90 mg QID PO 02/27/22 09:00 03/01/22 16:54 DC 03/01/22 16:19 Albuterol/ Ipratropium (Combivent Respimat 20-100 Mcg) 1 puff QID INH 02/27/22 09:00 03/16/22 20:38 Lactobacillus Rhamnosus (Culturelle) 1 cap BID PO 02/28/22 09:00 03/16/22 20:39 Quetiapine Fumarate (SEROquel) 25 mg 0900,1300,1700 PO 03/01/22 09:00 03/10/22 18:33 DC 03/10/22 16:36 Diltiazem HCl (Cardizem) 60 mg QID PO 03/01/22 17:00 03/01/22 17:02 DC Cetirizine HCl (ZyrTEC) 10 mg DAILY PO 03/02/22 09:00 03/16/22 08:37 Diltiazem HCl (Cardizem) 60 mg QID PO 03/01/22 21:00 03/16/22 17:41 Mirtazapine (Remeron) 7.5 mg QHS PO 03/01/22 21:00 03/09/22 16:57 DC 03/08/22 21:11 Sertraline HCl (Zoloft) 25 mg DAILY PO 03/03/22 09:00 03/11/22 17:16 DC 03/11/22 08:12 Methylphenidate HCl (Methylphenidate HCl) 20 mg BIDACBL PO 03/05/22 07:30 03/13/22 15:39 DC 03/13/22 12:19 Melatonin (Melatonin) 3 mg PRN QHS PRN PO 1ST CHOICE INSOMNIA 03/05/22 22:00 03/08/22 21:16 Trazodone HCl (Desyrel) 50 mg PRN QHS PRN PO 2ND CHOICE INSOMNIA, MR x1 03/08/22 21:00 03/16/22 18:07 DC 03/15/22 00:42 Mirtazapine (Remeron) 15 mg QHS PO 03/09/22 21:00 03/16/22 20:40 Quetiapine Fumarate (SEROquel) 25 mg 0900,1700 PO 03/11/22 09:00 03/16/22 17:41 Sertraline HCl (Zoloft) 50 mg DAILY PO 03/12/22 09:00 03/16/22 08:37 Methylphenidate HCl (Methylphenidate HCl) 30 mg BIDACBL PO 03/14/22 07:30 03/16/22 12:18 Sodium Chloride (Saline Mist Nasal) 1 omer PRN Q1HR PRN NS NASAL CONGESTION 03/16/22 15:00 Trazodone HCl (Desyrel) 100 mg PRN QHS PRN PO INSOMNIA, MAY REPEAT X1 03/16/22 18:15 03/16/22 20:39 Current Medications Medications (Trade) Dose Ordered Sig/Sameer Route PRN Reason Start Time Stop Time Status Last Admin Dose Admin Trazodone HCl (Desyrel) 100 mg PRN QHS PRN PO INSOMNIA, MAY REPEAT X1 03/16/22 18:15 03/16/22 20:39 I have reviewed the current psychotropics carefully including drug interactions. Risk benefit ratio favors no change other than as noted in my dictated progress note. 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
--- NOTE | 2022-03-16 23:43 | NUR ---
Pt withdrawn to room, lying in bed when approached. Pt A/O, slightly irritable but responds to questions. Pt cooperative with assessment and compliant with medications administered whole, floated in applesauce. PRN Tylenol administered @2039 for c/o generalized pain. No adverse or disruptive behaviors noted thus far this shift.
--- NOTE | 2022-03-17 01:07 | NUR ---
Pt up to [facility] nurse's station requesting Gatorade and snacks. Pt became upset with staff when they advised him that he would benefit from sleeping less during the day so that he would be able to sleep better at night. Pt responded by stating "there's nothing to do during the kin' day". Staff then reported pt began having trouble speaking and had weakness in his hands. I was called to the [facility] nurse's station to assess him and nursing passenger car cleaning supervisor was on the unit as well. Pt able to respond to staff questions appropriately. 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 Pt neuro assessment at this time within pt's baseline; pt A/O and responding appropriately. WCTM.
[2022-03-17 01:29] VITALS: BP 127/75
[2022-03-17 06:08] VITALS: BP 144/68
--- NOTE | 2022-03-17 08:36 | PDOC ---
Exam Note: Christiano Note: This note is a late entry for 03/16/2022 covers elements not covered in my initial note. Subjective: The patient was seen individually on 03/16/2022, discussed and reviewed the chart with Talia BEATTY. The patient slept 4 hours previous night. I met with the patient in his room. He has been irritable at breakfast time but little better rest of the day, still gets sedated his narcolepsy. He states he feels more alert. He isolates himself in his room. He took a nap before dinner. He does complain of insomnia and we will increase trazodone from 50 mg h.s. p.r.n., will repeat x1 to 100 mg h.s. may repeat x1 p.r.n. Review of Systems: Impaired ambulation in wheelchair. No CV, , pulmonary, eye system symptoms on review. He complains of some sedation. Mental Status Exam: Patient is oriented to himself and situation. I met with him in his room. He is more interactive, still dropping off to sleep as we were talking. Speech coherent. Abstraction fair. Computation impaired. Language function intact. Mood and affect improved. Laboratory Data: Reviewed. Impression: Bipolar 1 disorder, mixed with psychotic features. Major neurocognitive disorder, Alzheimer, vascular with delusion. Obstructive sleep apnea and narcolepsy. Plan: Continue rest psychotropics unchanged. Reviewed drug interactions and risk-benefit ratio. Assessment: Vital Signs/I&O: Vital Signs Date Time Temp Pulse Resp B/P (MAP) Pulse Ox O2 Delivery O2 Flow Rate FiO2 03/17/22 06:08 97.5 60 20 144/68 (93) 90 Room Air I & O 03/16/22 03/16/22 03/17/22 15:00 23:00 07:00 Intake Total 600 ml 360 ml Balance 600 ml 360 ml Current Medications: Meds: Current Medications Medications (Trade) Dose Ordered Sig/Sameer Route PRN Reason Start Time Stop Time Status Last Admin Dose Admin Trazodone HCl (Desyrel) 100 mg PRN QHS PRN PO 2ND CHOICE INSOMNIA, MRx1 03/16/22 18:15 03/16/22 20:39 I have reviewed the current psychotropics carefully including drug interactions. Risk benefit ratio favors no change other than as noted in my dictated progress note. 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
[2022-03-17] MEDS: ACETAMINOPHEN 325 MG TABLET PO PRN ×2 (09:00→20:46)
[2022-03-17] MEDS: SODIUM CHLORIDE 0.65% NASAL SPRAY 45ML BOTTLE. NS PRN ×2 (09:00→20:45)
[2022-03-17] MEDS: NICOTINE 21MG PATCH. TD SCH (09:01)
[2022-03-17] MEDS: dilTIAZem HCL 30 MG TABLET PO SCH ×4 (09:01→20:45)
[2022-03-17] MEDS: METHYLPHENIDATE HCL 5 MG TABLET PO SCH ×2 (09:01→12:23)
[2022-03-17] MEDS: ASPIRIN ENTERIC COATED 81 MG TABLET.DR. PO SCH (09:02)
[2022-03-17] MEDS: PANTOPRAZOLE 40 MG TABLET. PO SCH (09:02)
[2022-03-17] MEDS: CETIRIZINE HCL 10 MG TABLET PO SCH (09:02)
[2022-03-17] MEDS: IPRATROPIUM/ALBUTEROL 20/100mcg/INH INHALER. INH SCH ×4 (09:02→20:45)
[2022-03-17] MEDS: QUEtiapine 25 MG TABLET. PO SCH ×2 (09:02→17:23)
[2022-03-17] MEDS: METOPROLOL TART IMMED RELEASE 50 MG TABLET PO SCH ×2 (09:02→20:46)
[2022-03-17] MEDS: LACTOBACILLUS RHAMNOSUS GG 1 CAPSULE. PO SCH ×2 (09:02→20:46)
[2022-03-17] MEDS: SERTRALINE 50 MG TABLET. PO SCH (09:02)
--- NOTE | 2022-03-17 15:52 | NUR ---
Nursing note: Patient in bedroom for medications & assessment. He is compliant with medications taken whole. He is A/O X4. He reported 7/10 generalized pain, PRN pain medication given per order. Patient is calm, cooperative, somewhat demanding at times, & withdrawn to room coming out for meals only. He denies pain at this time. He propels self in w/c & self transfers. He is currently sitting up in w/c looking out his window. Will continue to monitor.
[2022-03-17 16:11] VITALS: BP 111/69
[2022-03-17 20:26] VITALS: BP 134/68
[2022-03-17] MEDS: MIRTAZAPINE 15 MG TABLET PO SCH (20:46)
[2022-03-17] MEDS: traZODone 100 MG TABLET. PO PRN (20:46)
[2022-03-17] MEDS: MELATONIN 3 MG TABLET PO PRN (20:46)
--- NOTE | 2022-03-17 21:29 | PDOC ---
Exam Note: Christiano Note: Please also refer to the separate dictated note~for this date of service dictated separately.~Patient seen individually. Discussed the patient with Nursing staff reviewed the chart.~Reviewed interim history and current functioning. Reviewed vital signs,~Labs/ Radiology~and current medications noted below. Continue current treatment with the changes noted in the dictated addendum note Assessment: Vital Signs/I&O: Vital Signs Date Time Temp Pulse Resp B/P (MAP) Pulse Ox O2 Delivery O2 Flow Rate FiO2 03/17/22 20:46 71 134/68 03/17/22 16:11 97.8 20 94 Room Air I & O 03/16/22 03/16/22 03/17/22 14:59 22:59 06:59 Intake Total 600 ml 360 ml Balance 600 ml 360 ml Labs: Laboratory Tests Test 03/17/22 07:00 POC SARS CoV-2 Antigen Negative (NEGATIVE) Current Medications: Meds: Laboratory Tests Test 03/17/22 07:00 POC SARS CoV-2 Antigen Negative Current Medications Medications (Trade) Dose Ordered Sig/Sameer Route PRN Reason Start Time Stop Time Status Last Admin Dose Admin Acetaminophen (Tylenol) 650 mg PRN Q6HRS PRN PO MILD PAIN / TEMP > 100.3'F 02/26/22 14:15 03/17/22 20:46 Multi-Ingredient Ointment (Analgesic [place]) 1 omer PRN QID PRN TP MUSCLE PAIN 02/26/22 14:15 Al Hydroxide/Mg Hydroxide (Mylanta Plus Xs) 15 ml PRN AFTMEALHC PRN PO DYSPEPSIA 02/26/22 14:15 Magnesium Hydroxide (Milk Of Magnesia) 2,400 mg PRN QHS PRN PO CONSTIPATION 02/26/22 14:15 Nicotine (Nicoderm Cq 21mg Patch) 1 patch DAILY TD 02/26/22 15:00 03/17/22 09:01 Diltiazem HCl (Cardizem) 90 mg Q6HRS PO 02/26/22 18:00 02/27/22 05:27 DC 02/26/22 17:31 Enoxaparin Sodium (Lovenox 40mg Syringe) 40 mg DAILY SQ 02/27/22 09:00 03/12/22 13:38 DC 03/12/22 08:37 Acetaminophen/ Hydrocodone Bitart (Lortab 5/325) 1 tab PRN Q4HRS PRN PO MOD-SEV PAIN 02/26/22 15:45 03/14/22 13:03 Albuterol/ Ipratropium (Combivent Respimat 20-100 Mcg) 1 puff Q6HRS INH 02/26/22 18:00 02/27/22 05:27 DC 02/26/22 21:08 Levofloxacin (Levaquin) 750 mg DAILY PO 02/27/22 09:00 03/01/22 08:59 DC 02/28/22 08:26 Metoprolol Tartrate (Lopressor) 50 mg BID PO 02/26/22 21:00 03/17/22 20:46 Olanzapine (ZyPREXA ZYDIS) 5 mg PRN Q6HRS PRN PO ANXIETY / AGITATION 02/26/22 15:45 03/11/22 04:45 Albuterol Sulfate (Ventolin Hfa Inhaler) 1 puff PRN Q6HRS PRN INH SOA 02/26/22 16:30 03/02/22 12:53 Aspirin (Aspirin Enteric Coated) 162 mg DAILY PO 02/27/22 09:00 03/17/22 09:02 Pantoprazole Sodium (Protonix) 40 mg DAILYAC PO 02/27/22 07:30 03/17/22 09:02 Nicotine (Nicoderm Cq 21mg Patch) 1 patch DAILY TD 02/27/22 09:00 02/26/22 16:13 DC Diltiazem HCl (Cardizem) 90 mg QID PO 02/27/22 09:00 03/01/22 16:54 DC 03/01/22 16:19 Albuterol/ Ipratropium (Combivent Respimat 20-100 Mcg) 1 puff QID INH 02/27/22 09:00 03/17/22 20:45 Lactobacillus Rhamnosus (Culturelle) 1 cap BID PO 02/28/22 09:00 03/17/22 20:46 Quetiapine Fumarate (SEROquel) 25 mg 0900,1300,1700 PO 03/01/22 09:00 03/10/22 18:33 DC 03/10/22 16:36 Diltiazem HCl (Cardizem) 60 mg QID PO 03/01/22 17:00 03/01/22 17:02 DC Cetirizine HCl (ZyrTEC) 10 mg DAILY PO 03/02/22 09:00 03/17/22 09:02 Diltiazem HCl (Cardizem) 60 mg QID PO 03/01/22 21:00 03/17/22 20:45 Mirtazapine (Remeron) 7.5 mg QHS PO 03/01/22 21:00 03/09/22 16:57 DC 03/08/22 21:11 Sertraline HCl (Zoloft) 25 mg DAILY PO 03/03/22 09:00 03/11/22 17:16 DC 03/11/22 08:12 Methylphenidate HCl (Methylphenidate HCl) 20 mg BIDACBL PO 03/05/22 07:30 03/13/22 15:39 DC 03/13/22 12:19 Melatonin (Melatonin) 3 mg PRN QHS PRN PO 1ST CHOICE INSOMNIA 03/05/22 22:00 03/17/22 20:46 Trazodone HCl (Desyrel) 50 mg PRN QHS PRN PO 2ND CHOICE INSOMNIA, MR x1 03/08/22 21:00 03/16/22 18:07 DC 03/15/22 00:42 Mirtazapine (Remeron) 15 mg QHS PO 03/09/22 21:00 03/17/22 20:46 Quetiapine Fumarate (SEROquel) 25 mg 0900,1700 PO 03/11/22 09:00 03/17/22 17:23 Sertraline HCl (Zoloft) 50 mg DAILY PO 03/12/22 09:00 03/17/22 09:02 Methylphenidate HCl (Methylphenidate HCl) 30 mg BIDACBL PO 03/14/22 07:30 03/17/22 12:23 Sodium Chloride (Saline Mist Nasal) 1 omer PRN Q1HR PRN NS NASAL CONGESTION 03/16/22 15:00 03/17/22 20:45 Trazodone HCl (Desyrel) 100 mg PRN QHS PRN PO 2ND CHOICE INSOMNIA, MRx1 03/16/22 18:15 03/17/22 20:46 I have reviewed the current psychotropics carefully including drug interactions. Risk benefit ratio favors no change other than as noted in my dictated progress note. 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
--- NOTE | 2022-03-17 23:15 | NUR ---
Pt withdrawn to room, sitting quietly in his w/c when approached. Pt A/O, irritable and demanding during encounter. Pt cooperative with assessment and compliant with medications administered whole in applesauce. No evidence of psychosis noted thus far this shift.
[2022-03-18] MEDS: traZODone 100 MG TABLET. PO PRN ×3 (00:06→22:52)
[2022-03-18 06:02] VITALS: BP 147/71
[2022-03-18] MEDS: LACTOBACILLUS RHAMNOSUS GG 1 CAPSULE. PO SCH ×2 (08:07→20:22)
[2022-03-18] MEDS: dilTIAZem HCL 30 MG TABLET PO SCH ×4 (08:07→20:23)
[2022-03-18] MEDS: CETIRIZINE HCL 10 MG TABLET PO SCH (08:07)
[2022-03-18] MEDS: METHYLPHENIDATE HCL 5 MG TABLET PO SCH ×2 (08:07→12:18)
[2022-03-18] MEDS: SERTRALINE 50 MG TABLET. PO SCH (08:08)
[2022-03-18] MEDS: QUEtiapine 25 MG TABLET. PO SCH ×2 (08:08→17:17)
[2022-03-18] MEDS: ASPIRIN ENTERIC COATED 81 MG TABLET.DR. PO SCH (08:08)
[2022-03-18] MEDS: PANTOPRAZOLE 40 MG TABLET. PO SCH (08:08)
[2022-03-18] MEDS: METOPROLOL TART IMMED RELEASE 50 MG TABLET PO SCH ×2 (08:08→20:23)
[2022-03-18] MEDS: IPRATROPIUM/ALBUTEROL 20/100mcg/INH INHALER. INH SCH ×4 (08:08→20:24)
[2022-03-18] MEDS: NICOTINE 21MG PATCH. TD SCH (08:09)
--- NOTE | 2022-03-18 08:43 | PDOC ---
Exam Note: Christiano Note: This note is a late entry for 03/17/2022 covers elements not covered in my initial note. Subjective: The patient was seen individually on 03/17/2022, discussed and reviewed the chart with Talia BEATTY. There has been Covid exposure on the unit and the unit has been placed on quarantine as determined by Infectious Disease Department. The patient slept 4-3/4 hours previous night. I met with the patient in his room. He has been less irritable and demanding. Last night he seemed to have an attack of Cataplexy per nursing report. We will defer to Dr. Willingham who is following the patient for his narcolepsy/cataplexy. The patient complains of ongoing insomnia and I have encouraged him to ask for his trazodone, repeat dosage h.s. p.r.n. for this. He is very pleased with this. Review of Systems: Impaired ambulation in wheelchair. No CV, , pulmonary, eye system symptoms on review. Mental Status Exam: Patient is oriented to himself and situation. I met with him in his room. Speech coherent. Abstraction fair. Computation impaired. Language function intact. Mood and affect improved. Laboratory Data: Reviewed. Impression: Bipolar 1 disorder, mixed with psychotic features. Major neur ocognitive disorder, Alzheimer, vascular with delusion. Obstructive sleep apnea and narcolepsy. Plan: Continue rest psychotropics unchanged. Reviewed drug interactions and risk-benefit ratio. Assessment: Vital Signs/I&O: Vital Signs Date Time Temp Pulse Resp B/P (MAP) Pulse Ox O2 Delivery O2 Flow Rate FiO2 03/18/22 08:08 78 147/71 03/18/22 06:02 97.8 18 91 Room Air I & O 03/17/22 03/17/22 03/18/22 15:00 23:00 07:00 Intake Total 600 ml 600 ml Balance 600 ml 600 ml Current Medications: I have reviewed the current psychotropics carefully including drug interactions. Risk benefit ratio favors no change other than as noted in my dictated progress note. Diagnosis: Problems: (1) Narcolepsy (2) Encephalopathy (3) Mild cognitive impairment (4) Dementia, vascular, with depression (5) Dementia, vascular, with delusions (6) Bipolar disorder, current episode mixed, severe, with psychotic features (7) Dementia in Alzheimer's disease with depression (8) Dementia in Alzheimer's disease with delusions (9) Major neurocognitive disorder HONEY WRIGHT MD March 18, 2022 08:43
[2022-03-18] MEDS: SODIUM CHLORIDE 0.65% NASAL SPRAY 45ML BOTTLE. NS PRN ×2 (10:52→20:24)
[2022-03-18] MEDS: HYDROcodone/APAP 5/325MG 1 TAB TABLET PO PRN (10:53)
[2022-03-18 16:43] VITALS: BP 146/91
--- NOTE | 2022-03-18 18:22 | NUR ---
Nurse note: Patient is alert and oriented x 4. He is compliant with assessment and taking his medications whole floated in applesauce. He is irritable at times, depressed and withdrawn to room. Complains of pain to bilateral hips, back and neck; medication given per order. No delusions noted. No hallucinations observed. No cataplexy episodes noted this shift. Will continue to monitor.
[2022-03-18] MEDS: MIRTAZAPINE 15 MG TABLET PO SCH (20:22)
[2022-03-18] MEDS: MELATONIN 3 MG TABLET PO PRN (20:22)
[2022-03-18] MEDS: ACETAMINOPHEN 325 MG TABLET PO PRN (20:23)
--- NOTE | 2022-03-18 21:52 | PDOC ---
Exam Note: Christiano Note: Please also refer to the separate dictated note~for this date of service dictated separately.~Patient seen individually. Discussed the patient with Nursing staff reviewed the chart.~Reviewed interim history and current functioning. Reviewed vital signs,~Labs/ Radiology~and current medications noted below. Continue current treatment with the changes noted in the dictated addendum note Assessment: Vital Signs/I&O: Vital Signs Date Time Temp Pulse Resp B/P (MAP) Pulse Ox O2 Delivery O2 Flow Rate FiO2 03/18/22 20:23 71 146/91 03/18/22 16:43 98.6 17 94 Room Air I & O 03/17/22 03/17/22 03/18/22 15:00 23:00 07:00 Intake Total 600 ml 600 ml Balance 600 ml 600 ml Current Medications: Meds: Current Medications Medications (Trade) Dose Ordered Sig/Sameer Route PRN Reason Start Time Stop Time Status Last Admin Dose Admin Acetaminophen (Tylenol) 650 mg PRN Q6HRS PRN PO MILD PAIN / TEMP > 100.3'F 02/26/22 14:15 03/18/22 20:23 Multi-Ingredient Ointment (Analgesic [place]) 1 omer PRN QID PRN TP MUSCLE PAIN 02/26/22 14:15 Al Hydroxide/Mg Hydroxide (Mylanta Plus Xs) 15 ml PRN AFTMEALHC PRN PO DYSPEPSIA 02/26/22 14:15 Magnesium Hydroxide (Milk Of Magnesia) 2,400 mg PRN QHS PRN PO CONSTIPATION 02/26/22 14:15 Nicotine (Nicoderm Cq 21mg Patch) 1 patch DAILY TD 02/26/22 15:00 03/18/22 08:09 Diltiazem HCl (Cardizem) 90 mg Q6HRS PO 02/26/22 18:00 02/27/22 05:27 DC 02/26/22 17:31 Enoxaparin Sodium (Lovenox 40mg Syringe) 40 mg DAILY SQ 02/27/22 09:00 03/12/22 13:38 DC 03/12/22 08:37 Acetaminophen/ Hydrocodone Bitart (Lortab 5/325) 1 tab PRN Q4HRS PRN PO MOD-SEV PAIN 02/26/22 15:45 03/18/22 10:53 Albuterol/ Ipratropium (Combivent Respimat 20-100 Mcg) 1 puff Q6HRS INH 02/26/22 18:00 02/27/22 05:27 DC 02/26/22 21:08 Levofloxacin (Levaquin) 750 mg DAILY PO 02/27/22 09:00 03/01/22 08:59 DC 02/28/22 08:26 Metoprolol Tartrate (Lopressor) 50 mg BID PO 02/26/22 21:00 03/18/22 20:23 Olanzapine (ZyPREXA ZYDIS) 5 mg PRN Q6HRS PRN PO ANXIETY / AGITATION 02/26/22 15:45 03/11/22 04:45 Albuterol Sulfate (Ventolin Hfa Inhaler) 1 puff PRN Q6HRS PRN INH SOA 02/26/22 16:30 03/02/22 12:53 Aspirin (Aspirin Enteric Coated) 162 mg DAILY PO 02/27/22 09:00 03/18/22 08:08 Pantoprazole Sodium (Protonix) 40 mg DAILYAC PO 02/27/22 07:30 03/18/22 08:08 Nicotine (Nicoderm Cq 21mg Patch) 1 patch DAILY TD 02/27/22 09:00 02/26/22 16:13 DC Diltiazem HCl (Cardizem) 90 mg QID PO 02/27/22 09:00 03/01/22 16:54 DC 03/01/22 16:19 Albuterol/ Ipratropium (Combivent Respimat 20-100 Mcg) 1 puff QID INH 02/27/22 09:00 03/18/22 20:24 Lactobacillus Rhamnosus (Culturelle) 1 cap BID PO 02/28/22 09:00 03/18/22 20:22 Quetiapine Fumarate (SEROquel) 25 mg 0900,1300,1700 PO 03/01/22 09:00 03/10/22 18:33 DC 03/10/22 16:36 Diltiazem HCl (Cardizem) 60 mg QID PO 03/01/22 17:00 03/01/22 17:02 DC Cetirizine HCl (ZyrTEC) 10 mg DAILY PO 03/02/22 09:00 03/18/22 08:07 Diltiazem HCl (Cardizem) 60 mg QID PO 03/01/22 21:00 03/18/22 20:23 Mirtazapine (Remeron) 7.5 mg QHS PO 03/01/22 21:00 03/09/22 16:57 DC 03/08/22 21:11 Sertraline HCl (Zoloft) 25 mg DAILY PO 03/03/22 09:00 03/11/22 17:16 DC 03/11/22 08:12 Methylphenidate HCl (Methylphenidate HCl) 20 mg BIDACBL PO 03/05/22 07:30 03/13/22 15:39 DC 03/13/22 12:19 Melatonin (Melatonin) 3 mg PRN QHS PRN PO 1ST CHOICE INSOMNIA 03/05/22 22:00 03/18/22 20:22 Trazodone HCl (Desyrel) 50 mg PRN QHS PRN PO 2ND CHOICE INSOMNIA, MR x1 03/08/22 21:00 03/16/22 18:07 DC 03/15/22 00:42 Mirtazapine (Remeron) 15 mg QHS PO 03/09/22 21:00 03/18/22 20:22 Quetiapine Fumarate (SEROquel) 25 mg 0900,1700 PO 03/11/22 09:00 03/18/22 17:17 Sertraline HCl (Zoloft) 50 mg DAILY PO 03/12/22 09:00 03/18/22 08:08 Methylphenidate HCl (Methylphenidate HCl) 30 mg BIDACBL PO 03/14/22 07:30 03/18/22 12:18 Sodium Chloride (Saline Mist Nasal) 1 omer PRN Q1HR PRN NS NASAL CONGESTION 03/16/22 15:00 03/18/22 20:24 Trazodone HCl (Desyrel) 100 mg PRN QHS PRN PO 2ND CHOICE INSOMNIA, MRx1 03/16/22 18:15 03/18/22 20:22 I have reviewed the current psychotropics carefully including drug interactions. Risk benefit ratio favors no change other than as noted in my dictated progress note. 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
--- NOTE | 2022-03-19 00:44 | NUR ---
Pt withdrawn to room, lying in bed when approached. Pt calm but with a flat and depressed affect. Pt cooperative with assessment and compliant with medications administered whole and floated in applesauce. PRN Trazodone and Melatonin for sleep and PRN Tylenol administered for c/o generalized pain at 2021. Pt later requested PRN repeat Trazodone for sleep which was administered at 2251. Pt currently resting in bed w/eyes closed.
[2022-03-19 06:08] VITALS: BP 132/84
[2022-03-19] MEDS: IPRATROPIUM/ALBUTEROL 20/100mcg/INH INHALER. INH SCH ×4 (08:08→20:24)
[2022-03-19] MEDS: ASPIRIN ENTERIC COATED 81 MG TABLET.DR. PO SCH (08:09)
[2022-03-19] MEDS: dilTIAZem HCL 30 MG TABLET PO SCH ×4 (08:09→20:23)
[2022-03-19] MEDS: NICOTINE 21MG PATCH. TD SCH (08:09)
[2022-03-19] MEDS: SERTRALINE 50 MG TABLET. PO SCH (08:10)
[2022-03-19] MEDS: LACTOBACILLUS RHAMNOSUS GG 1 CAPSULE. PO SCH ×2 (08:10→20:19)
[2022-03-19] MEDS: METOPROLOL TART IMMED RELEASE 50 MG TABLET PO SCH ×2 (08:10→20:24)
[2022-03-19] MEDS: PANTOPRAZOLE 40 MG TABLET. PO SCH (08:10)
[2022-03-19] MEDS: QUEtiapine 25 MG TABLET. PO SCH ×2 (08:10→17:25)
[2022-03-19] MEDS: CETIRIZINE HCL 10 MG TABLET PO SCH (08:10)
[2022-03-19] MEDS: METHYLPHENIDATE HCL 5 MG TABLET PO SCH ×2 (08:11→12:16)
--- NOTE | 2022-03-19 08:26 | PDOC ---
Exam Note: Christiano Note: This note is a late entry for 03/18/2022 covers elements not covered in my initial note. Subjective: The patient was seen individually on 03/18/2022, discussed and reviewed the chart with Suze BEATTY. There has been Covid exposure on the unit and the unit has been placed on quarantine as determined by Infectious Disease Department. The patient slept 4-3/4 hours previous night. I met with the patient in his room. He has been isolative, somewhat obsessive about discharge plans and I addressed with him. He did say he slept better previous night. Review of Systems: Impaired ambulation in wheelchair. No CV, , pulmonary, eye system symptoms on review. Mental Status Exam: Patient is oriented to himself and situation. I met with him in his room. Speech coherent. Abstraction fair. Computation impaired. Language function intact. Mood and affect improved. Laboratory Data: Reviewed. Impression: Bipolar 1 disorder, mixed with psychotic features. Major neurocognitive disorder, Alzheimer, vascular with delusion. Obstructive sleep apnea and narcolepsy. Plan: Continue rest psychotropics unchanged. Reviewed drug interactions and risk-benefit ratio. Assessment: Vital Signs/I&O: Vital Signs Date Time Temp Pulse Resp B/P (MAP) Pulse Ox O2 Delivery O2 Flow Rate FiO2 03/19/22 08:10 94 132/84 03/19/22 06:08 98.8 20 91 Room Air I & O 03/18/22 03/18/22 03/19/22 14:59 22:59 06:59 Intake Total 600 ml 240 ml Balance 600 ml 240 ml Current Medications: I have reviewed the current psychotropics carefully including drug interactions. Risk benefit ratio favors no change other than as noted in my dictated progress note. 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
[2022-03-19] MEDS: SODIUM CHLORIDE 0.65% NASAL SPRAY 45ML BOTTLE. NS PRN (09:03)
--- NOTE | 2022-03-19 09:51 | NUR ---
Date of Admission: 02/26/22 Date of AT Assessment:02/27 Precipitating behaviors that initiated intake and admission: thinks he's being trapped in a room, anxious, bizarre thought processes, hallucinating, refusing meds & cares, convinced there was a snake in the room, agitated, grabbed nurse's hand Goal aimed: increase stress management and relaxation skills Initial Goal: Pt will participate in at least three Activity Therapy sessions before discharge Weekly progress towards goal: on track(03/16-meet the needs. 03/18-music and dancing) Group participation level: 2 min Weekly highlights: accepted snacks before going back to room, talked about back stage [employer] tickers Wednesday afternoon Behaviors observed: withdrawn to room Plan: no change to goal Beneficial adaptations:
--- NOTE | 2022-03-19 14:29 | NUR ---
Nurse note: Patient is alert and oriented x 4. He is compliant with assessment and taking his medications whole floated in applesauce. He flat, calm, depressed and withdrawn to room. He is cooperative with the staff. He stays to himself in his room most of the day but does go to the dining room for meals. He is appreciative of care and often says please and thank you. He does state he is tired of being here and he wants to go home. No delusions. Patient denies A/V hallucinations. Will continue to monitor.
--- NOTE | 2022-03-19 15:36 | NUR ---
Treatment team updates: Pt is eating 100% of meals and sleeping on average 5.5 hours per night; last night pt was noted to be sleeping 6.5 hours. Pt is depressed and has a flat affect but cooperative with all staff directions. Pt is withdrawn to his room and typically shows no interest in activities; this week pt attended two groups with little to no interaction. Pt wants to discharge home but has no ability to explain why he wishes to go home before going to live in a NURSING HOME. SW will continue to work with his family on finding placement and update pt over time.
[2022-03-19 16:39] VITALS: BP 141/79
[2022-03-19] MEDS: ACETAMINOPHEN 325 MG TABLET PO PRN (20:19)
[2022-03-19] MEDS: MIRTAZAPINE 15 MG TABLET PO SCH (20:20)
[2022-03-19] MEDS: MELATONIN 3 MG TABLET PO PRN (20:20)
--- NOTE | 2022-03-19 21:01 | PDOC ---
Exam Note: Christiano Note: Please also refer to the separate dictated note~for this date of service dictated separately.~Patient seen individually. Discussed the patient with Nursing staff reviewed the chart.~Reviewed interim history and current functioning. Reviewed vital signs,~Labs/ Radiology~and current medications noted below. Continue current treatment with the changes noted in the dictated addendum note Assessment: Vital Signs/I&O: Vital Signs Date Time Temp Pulse Resp B/P (MAP) Pulse Ox O2 Delivery O2 Flow Rate FiO2 03/19/22 20:24 84 163/91 03/19/22 16:39 97.9 20 92 03/19/22 06:08 Room Air I & O 03/18/22 03/18/22 03/19/22 15:00 23:00 07:00 Intake Total 600 ml 240 ml Balance 600 ml 240 ml Current Medications: Meds: Current Medications Medications (Trade) Dose Ordered Sig/Sameer Route PRN Reason Start Time Stop Time Status Last Admin Dose Admin Acetaminophen (Tylenol) 650 mg PRN Q6HRS PRN PO MILD PAIN / TEMP > 100.3'F 02/26/22 14:15 03/19/22 20:19 Multi-Ingredient Ointment (Analgesic [place]) 1 omer PRN QID PRN TP MUSCLE PAIN 02/26/22 14:15 Al Hydroxide/Mg Hydroxide (Mylanta Plus Xs) 15 ml PRN AFTMEALHC PRN PO DYSPEPSIA 02/26/22 14:15 Magnesium Hydroxide (Milk Of Magnesia) 2,400 mg PRN QHS PRN PO CONSTIPATION 02/26/22 14:15 Nicotine (Nicoderm Cq 21mg Patch) 1 patch DAILY TD 02/26/22 15:00 03/19/22 08:09 Diltiazem HCl (Cardizem) 90 mg Q6HRS PO 02/26/22 18:00 02/27/22 05:27 DC 02/26/22 17:31 Enoxaparin Sodium (Lovenox 40mg Syringe) 40 mg DAILY SQ 02/27/22 09:00 03/12/22 13:38 DC 03/12/22 08:37 Acetaminophen/ Hydrocodone Bitart (Lortab 5/325) 1 tab PRN Q4HRS PRN PO MOD-SEV PAIN 02/26/22 15:45 03/18/22 10:53 Albuterol/ Ipratropium (Combivent Respimat 20-100 Mcg) 1 puff Q6HRS INH 02/26/22 18:00 02/27/22 05:27 DC 02/26/22 21:08 Levofloxacin (Levaquin) 750 mg DAILY PO 02/27/22 09:00 03/01/22 08:59 DC 02/28/22 08:26 Metoprolol Tartrate (Lopressor) 50 mg BID PO 02/26/22 21:00 03/19/22 20:24 Olanzapine (ZyPREXA ZYDIS) 5 mg PRN Q6HRS PRN PO ANXIETY / AGITATION 02/26/22 15:45 03/11/22 04:45 Albuterol Sulfate (Ventolin Hfa Inhaler) 1 puff PRN Q6HRS PRN INH SOA 02/26/22 16:30 03/02/22 12:53 Aspirin (Aspirin Enteric Coated) 162 mg DAILY PO 02/27/22 09:00 03/19/22 08:09 Pantoprazole Sodium (Protonix) 40 mg DAILYAC PO 02/27/22 07:30 03/19/22 08:10 Nicotine (Nicoderm Cq 21mg Patch) 1 patch DAILY TD 02/27/22 09:00 02/26/22 16:13 DC Diltiazem HCl (Cardizem) 90 mg QID PO 02/27/22 09:00 03/01/22 16:54 DC 03/01/22 16:19 Albuterol/ Ipratropium (Combivent Respimat 20-100 Mcg) 1 puff QID INH 02/27/22 09:00 03/19/22 20:24 Lactobacillus Rhamnosus (Culturelle) 1 cap BID PO 02/28/22 09:00 03/19/22 20:19 Quetiapine Fumarate (SEROquel) 25 mg 0900,1300,1700 PO 03/01/22 09:00 03/10/22 18:33 DC 03/10/22 16:36 Diltiazem HCl (Cardizem) 60 mg QID PO 03/01/22 17:00 03/01/22 17:02 DC Cetirizine HCl (ZyrTEC) 10 mg DAILY PO 03/02/22 09:00 03/19/22 08:10 Diltiazem HCl (Cardizem) 60 mg QID PO 03/01/22 21:00 03/19/22 20:23 Mirtazapine (Remeron) 7.5 mg QHS PO 03/01/22 21:00 03/09/22 16:57 DC 03/08/22 21:11 Sertraline HCl (Zoloft) 25 mg DAILY PO 03/03/22 09:00 03/11/22 17:16 DC 03/11/22 08:12 Methylphenidate HCl (Methylphenidate HCl) 20 mg BIDACBL PO 03/05/22 07:30 03/13/22 15:39 DC 03/13/22 12:19 Melatonin (Melatonin) 3 mg PRN QHS PRN PO 1ST CHOICE INSOMNIA 03/05/22 22:00 03/19/22 20:20 Trazodone HCl (Desyrel) 50 mg PRN QHS PRN PO 2ND CHOICE INSOMNIA, MR x1 03/08/22 21:00 03/16/22 18:07 DC 03/15/22 00:42 Mirtazapine (Remeron) 15 mg QHS PO 03/09/22 21:00 03/19/22 20:20 Quetiapine Fumarate (SEROquel) 25 mg 0900,1700 PO 03/11/22 09:00 03/19/22 17:25 Sertraline HCl (Zoloft) 50 mg DAILY PO 03/12/22 09:00 03/19/22 08:10 Methylphenidate HCl (Methylphenidate HCl) 30 mg BIDACBL PO 03/14/22 07:30 03/19/22 12:16 Sodium Chloride (Saline Mist Nasal) 1 omer PRN Q1HR PRN NS NASAL CONGESTION 03/16/22 15:00 03/19/22 09:03 Trazodone HCl (Desyrel) 100 mg PRN QHS PRN PO 2ND CHOICE INSOMNIA, MRx1 03/16/22 18:15 03/18/22 22:52 I have reviewed the current psychotropics carefully including drug interactions. Risk benefit ratio favors no change other than as noted in my dictated progress note. 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
--- NOTE | 2022-03-19 23:01 | NUR ---
Upon recheck of VS before administering HS meds, pt sating 88% on RA. Pt reports SOA and productive cough. Lungs are diminished throughout and coarse in the bases. Pt placed on 2L/NC for the night, CXR already scheduled for AM.
[2022-03-20 06:00] LABS: BASO % 0 % (0-3); EOS # 0.1 x10^3/uL (0.0-0.7); EOS % 2 % (0-3); HEMATOCRIT 37.9 % (39.0-53.0); HEMOGLOBIN 12.4 g/dL (13.0-17.5); LYMPH % 12 % (24-48); MEAN CORPUSCULAR HEMOGLOBIN 30 pg (25-35); MEAN CORPUSCULAR HGB CONC 33 g/dL (31-37); MEAN CORPUSCULAR VOLUME 90 fL (79-100); MONO # 0.8 x10^3/uL (0.0-1.1); MONO % 10 % (0-9); NEUT # 6.2 x10^3uL (1.8-7.7); NEUT % 76 % (31-73); PLATELET COUNT 249 x10^3/uL (140-400); RED BLOOD COUNT 4.21 x10^6/uL (4.30-5.70); RED CELL DISTRIBUTION WIDTH 15.2 % (11.5-14.5); WHITE BLOOD COUNT 8.2 x10^3/uL (4.0-11.0)
[2022-03-20 06:17] LABS: ALBUMIN 2.6 g/dL (3.4-5.0); ALBUMIN/GLOBULIN RATIO 0.6 (1.0-1.7); CALCIUM 9.1 mg/dL (8.5-10.1); CREATININE 0.7 mg/dL (0.7-1.3); GFR 108.2; POTASSIUM 3.7 mmol/L (3.5-5.1); TOTAL BILIRUBIN 0.4 mg/dL (0.2-1.0)
[2022-03-20 06:23] VITALS: BP 132/80
[2022-03-20] MEDS: IPRATROPIUM/ALBUTEROL 20/100mcg/INH INHALER. INH SCH ×4 (08:16→21:03)
[2022-03-20] MEDS: SODIUM CHLORIDE 0.65% NASAL SPRAY 45ML BOTTLE. NS PRN (08:16)
[2022-03-20] MEDS: NICOTINE 21MG PATCH. TD SCH (08:16)
[2022-03-20] MEDS: LACTOBACILLUS RHAMNOSUS GG 1 CAPSULE. PO SCH ×2 (08:17→21:03)
[2022-03-20] MEDS: ASPIRIN ENTERIC COATED 81 MG TABLET.DR. PO SCH (08:17)
[2022-03-20] MEDS: METHYLPHENIDATE HCL 5 MG TABLET PO SCH ×2 (08:17→12:04)
[2022-03-20] MEDS: dilTIAZem HCL 30 MG TABLET PO SCH ×4 (08:17→21:05)
[2022-03-20] MEDS: METOPROLOL TART IMMED RELEASE 50 MG TABLET PO SCH ×2 (08:18→21:03)
[2022-03-20] MEDS: PANTOPRAZOLE 40 MG TABLET. PO SCH (08:18)
[2022-03-20] MEDS: QUEtiapine 25 MG TABLET. PO SCH ×2 (08:18→17:09)
[2022-03-20] MEDS: CETIRIZINE HCL 10 MG TABLET PO SCH (08:18)
[2022-03-20] MEDS: SERTRALINE 50 MG TABLET. PO SCH (08:18)
[2022-03-20] MEDS: HYDROcodone/APAP 5/325MG 1 TAB TABLET PO PRN (08:23)
--- NOTE | 2022-03-20 10:32 | RAD ---
EXAM: Chest, 2 views. HISTORY: Shortness of breath. Cough. COMPARISON: 02/28/2022 FINDINGS: 2 views of the chest are obtained. There is left lower lobe interstitial infiltrate. There is no consolidation, pleural effusion or pneumothorax. There are chronic appearing interstitial beverly es. There is a stable prominent cardiac silhouette. There is a large hiatal hernia. IMPRESSION: 1. Left lower lobe interstitial infiltrate. 2. Stable prominent chronic silhouette and large hiatal hernia. Electronically signed by: Anna Graves MD (03/20/2022 10:29 AM) [id number]
--- NOTE | 2022-03-20 13:45 | NUR ---
Nurse note: Patient is alert and oriented x 4. He is compliant with assessment and taking his medications whole floated in applesauce. He flat, calm, depressed and withdrawn to room. He is cooperative with the staff. He stays to himself in his room most of the day but comes to the [facility] nurses station in the hallway. He does go to the dining room for meals. He denies A/V hallucinations; no delusions noted. Patient is able to make needs known. Will continue to monitor.
--- NOTE | 2022-03-20 15:00 | NUR ---
SW attempted to contact pt dtr in law/DPOA, Nicolasa, and had to leave a message asking that Nicolasa call SW back when possible.
--- NOTE | 2022-03-20 15:45 | NUR ---
SW met with pt to discuss discharge plans. SW noted that pt was not safe and the team along with his family is recommending placement in an [facility]. SW gave pt a list of five places that SW thought would be appropriate for pt. Pt noted that one of the facilities he knows because he went for Skilled care. Pt does not wish to go to [facility]WAY and only plans to go home. He continues to note that he has things to get in order, but cannot tell SW what those things are. "I have things that I need to get done and I want to look at these places myself". SW and pt discussed what lead him here and pt noted "I sleep naked at night. I got to the point where I couldn't breathe and panicked. I put pants on and went out to my front yard to flag down help". SW noted that for pt to be found in his front yard was unsafe and questioned why he didn't use his phone to dial 911; he stated "I don't have a phone". SW noted that is not safe as well. He could potentially need help and could be found unresponsive days later before being found, as he lives alone. Pt reports that he does not live alone and SW questioned who and pt couldn't name anyone. Pt questioned if he was able to leave tonight or this weekend and his family can pick him up, could he. MELISSA noted that if his dtr in-law was willing to let pt leave, he could; but the family agrees that pt is not safe to be home alone and did not think he would leave this weekend. MELISSA will follow up with pt family and pt on Wednesday.
[2022-03-20 16:20] VITALS: BP 137/89
[2022-03-20] MEDS: MELATONIN 3 MG TABLET PO PRN (21:04)
[2022-03-20] MEDS: ACETAMINOPHEN 325 MG TABLET PO PRN (21:04)
[2022-03-20] MEDS: AMOXICILLIN/K CLAV 875/125MG TABLET. PO SCH (21:04)
[2022-03-20] MEDS: MIRTAZAPINE 15 MG TABLET PO SCH (21:04)
--- NOTE | 2022-03-20 21:37 | PDOC ---
Exam Note: Christiano Note: This note is a late entry for 03/19/2022 covers elements not covered in my initial note. Subjective: The patient was reviewed at treatment team meeting individually in the morning on 03/19/2022 with Carlene Viveros, Zara Oates, and Aliya Mehta (social welfare administrator), Jenniffer, activity therapy, and Suze BEATTY, discussed and reviewed the chart. The patient slept 6-1/2 hours previous night. Average sleep 5-1/2 hours. Appetite is 96%. He is wanting to go home. Family is looking at assisted living. He has attended 2 groups in the past week and did well. He still has significant narcolepsy, some Cataplexy. He has had some epistaxis, defer to Dr. Saavedra. He had many questions about discharge plans. I addressed with him. Review of Systems: Impaired ambulation in wheelchair. No CV, , pulmonary, eye system symptoms on review. Mental Status Exam: Patient is oriented to himself and situation. I met with him in his room. I attempted to discuss with him the need for more structured placement rather than returning home. He sleeps a lot during the day here and living alone at home probably it is not safe and unattainable at least for now, certainly this could be reassessed at a later date. Speech coherent. Abstraction fair. Computation impaired. Language function intact. Mood and affect improved. Laboratory Data: Reviewed. Impression: Bipolar 1 disorder, mixed with psychotic features. Major neurocognitive disorder, Alzheimer, vascular with delusion. Obstructive sleep apnea and narcolepsy. Plan: Continue rest psychotropics unchanged. Reviewed drug interactions and risk-benefit ratio. Assessment: Vital Signs/I&O: Vital Signs Date Time Temp Pulse Resp B/P (MAP) Pulse Ox O2 Delivery O2 Flow Rate FiO2 03/20/22 21:05 69 137/89 03/20/22 16:20 97.3 18 94 03/20/22 06:23 Room Air I & O 03/19/22 03/19/22 03/20/22 15:00 23:00 07:00 Intake Total 860 ml 600 ml Balance 860 ml 600 ml Labs: Laboratory Tests Test 03/20/22 05:47 White Blood Count 8.2 x10^3/uL (4.0-11.0) Red Blood Count 4.21 x10^6/uL (4.30-5.70) L Hemoglobin 12.4 g/dL (13.0-17.5) L Hematocrit 37.9 % (39.0-53.0) L Mean Corpuscular Volume 90 fL (79-100) Mean Corpuscular Hemoglobin 30 pg (25-35) Mean Corpuscular Hemoglobin Concent 33 g/dL (31-37) Red Cell Distribution Width 15.2 % (11.5-14.5) H Platelet Count 249 x10^3/uL (140-400) Neutrophils (%) (Auto) 76 % (31-73) H Lymphocytes (%) (Auto) 12 % (24-48) L Monocytes (%) (Auto) 10 % (0-9) H Eosinophils (%) (Auto) 2 % (0-3) Basophils (%) (Auto) 0 % (0-3) Neutrophils # (Auto) 6.2 x10^3uL (1.8-7.7) Lymphocytes # (Auto) 1.0 x10^3/uL (1.0-4.8) Monocytes # (Auto) 0.8 x10^3/uL (0.0-1.1) Eosinophils # (Auto) 0.1 x10^3/uL (0.0-0.7) Basophils # (Auto) 0.0 x10^3/uL (0.0-0.2) Sodium Level 138 mmol/L (136-145) Potassium Level 3.7 mmol/L (3.5-5.1) Chloride Level 103 mmol/L (98-107) Carbon Dioxide Level 27 mmol/L (21-32) Anion Gap 8 (6-14) Blood Urea Nitrogen 15 mg/dL (8-26) Creatinine 0.7 mg/dL (0.7-1.3) Estimated GFR (Cockcroft-Gault) 108.2 BUN/Creatinine Ratio 21 (6-20) H Glucose Level 96 mg/dL (70-99) Calcium Level 9.1 mg/dL (8.5-10.1) Total Bilirubin 0.4 mg/dL (0.2-1.0) Aspartate Amino Transferase (AST) 14 U/L (15-37) L Alanine Aminotransferase (ALT) 22 U/L (16-63) Alkaline Phosphatase 110 U/L (46-116) Total Protein 7.0 g/dL (6.4-8.2) Albumin 2.6 g/dL (3.4-5.0) L Albumin/Globulin Ratio 0.6 (1.0-1.7) L Current Medications: Meds: Current Medications Medications (Trade) Dose Ordered Sig/Sameer Route PRN Reason Start Time Stop Time Status Last Admin Dose Admin Amoxicillin/ Clavulanate Potassium (Augmentin 875/ 125mg) 1 tab BID PO 03/20/22 21:00 03/29/22 23:00 03/20/22 21:04 I have reviewed the current psychotropics carefully including drug interactions. Risk benefit ratio favors no change other than as noted in my dictated progress note. 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
--- NOTE | 2022-03-20 21:59 | PDOC ---
Exam Note: Christiano Note: Please also refer to the separate dictated note~for this date of service dictated separately.~Patient seen individually. Discussed the patient with Nursing staff reviewed the chart.~Reviewed interim history and current functioning. Reviewed vital signs,~Labs/ Radiology~and current medications noted below. Continue current treatment with the changes noted in the dictated addendum note Assessment: Vital Signs/I&O: Vital Signs Date Time Temp Pulse Resp B/P (MAP) Pulse Ox O2 Delivery O2 Flow Rate FiO2 03/20/22 21:05 69 137/89 03/20/22 16:20 97.3 18 94 03/20/22 06:23 Room Air I & O 03/19/22 03/19/22 03/20/22 15:00 23:00 07:00 Intake Total 860 ml 600 ml Balance 860 ml 600 ml Labs: Laboratory Tests Test 03/20/22 05:47 White Blood Count 8.2 x10^3/uL (4.0-11.0) Red Blood Count 4.21 x10^6/uL (4.30-5.70) L Hemoglobin 12.4 g/dL (13.0-17.5) L Hematocrit 37.9 % (39.0-53.0) L Mean Corpuscular Volume 90 fL (79-100) Mean Corpuscular Hemoglobin 30 pg (25-35) Mean Corpuscular Hemoglobin Concent 33 g/dL (31-37) Red Cell Distribution Width 15.2 % (11.5-14.5) H Platelet Count 249 x10^3/uL (140-400) Neutrophils (%) (Auto) 76 % (31-73) H Lymphocytes (%) (Auto) 12 % (24-48) L Monocytes (%) (Auto) 10 % (0-9) H Eosinophils (%) (Auto) 2 % (0-3) Basophils (%) (Auto) 0 % (0-3) Neutrophils # (Auto) 6.2 x10^3uL (1.8-7.7) Lymphocytes # (Auto) 1.0 x10^3/uL (1.0-4.8) Monocytes # (Auto) 0.8 x10^3/uL (0.0-1.1) Eosinophils # (Auto) 0.1 x10^3/uL (0.0-0.7) Basophils # (Auto) 0.0 x10^3/uL (0.0-0.2) Sodium Level 138 mmol/L (136-145) Potassium Level 3.7 mmol/L (3.5-5.1) Chloride Level 103 mmol/L (98-107) Carbon Dioxide Level 27 mmol/L (21-32) Anion Gap 8 (6-14) Blood Urea Nitrogen 15 mg/dL (8-26) Creatinine 0.7 mg/dL (0.7-1.3) Estimated GFR (Cockcroft-Gault) 108.2 BUN/Creatinine Ratio 21 (6-20) H Glucose Level 96 mg/dL (70-99) Calcium Level 9.1 mg/dL (8.5-10.1) Total Bilirubin 0.4 mg/dL (0.2-1.0) Aspartate Amino Transferase (AST) 14 U/L (15-37) L Alanine Aminotransferase (ALT) 22 U/L (16-63) Alkaline Phosphatase 110 U/L (46-116) Total Protein 7.0 g/dL (6.4-8.2) Albumin 2.6 g/dL (3.4-5.0) L Albumin/Globulin Ratio 0.6 (1.0-1.7) L Current Medications: Meds: Laboratory Tests Test 03/20/22 05:47 White Blood Count 8.2 x10^3/uL Red Blood Count 4.21 x10^6/uL Hemoglobin 12.4 g/dL Hematocrit 37.9 % Mean Corpuscular Volume 90 fL Mean Corpuscular Hemoglobin 30 pg Mean Corpuscular Hemoglobin Concent 33 g/dL Red Cell Distribution Width 15.2 % Platelet Count 249 x10^3/uL Neutrophils (%) (Auto) 76 % Lymphocytes (%) (Auto) 12 % Monocytes (%) (Auto) 10 % Eosinophils (%) (Auto) 2 % Basophils (%) (Auto) 0 % Neutrophils # (Auto) 6.2 x10^3uL Lymphocytes # (Auto) 1.0 x10^3/uL Monocytes # (Auto) 0.8 x10^3/uL Eosinophils # (Auto) 0.1 x10^3/uL Basophils # (Auto) 0.0 x10^3/uL Sodium Level 138 mmol/L Potassium Level 3.7 mmol/L Chloride Level 103 mmol/L Carbon Dioxide Level 27 mmol/L Anion Gap 8 Blood Urea Nitrogen 15 mg/dL Creatinine 0.7 mg/dL Estimated GFR (Cockcroft-Gault) 108.2 BUN/Creatinine Ratio 21 Glucose Level 96 mg/dL Calcium Level 9.1 mg/dL Total Bilirubin 0.4 mg/dL Aspartate Amino Transf (AST/SGOT) 14 U/L Alanine Aminotransferase (ALT/SGPT) 22 U/L Alkaline Phosphatase 110 U/L Total Protein 7.0 g/dL Albumin 2.6 g/dL Albumin/Globulin Ratio 0.6 Current Medications Medications (Trade) Dose Ordered Sig/Sameer Route PRN Reason Start Time Stop Time Status Last Admin Dose Admin Acetaminophen (Tylenol) 650 mg PRN Q6HRS PRN PO MILD PAIN / TEMP > 100.3'F 02/26/22 14:15 03/20/22 21:04 Multi-Ingredient Ointment (Analgesic [place]) 1 omer PRN QID PRN TP MUSCLE PAIN 02/26/22 14:15 Al Hydroxide/Mg Hydroxide (Mylanta Plus Xs) 15 ml PRN AFTMEALHC PRN PO DYSPEPSIA 02/26/22 14:15 Magnesium Hydroxide (Milk Of Magnesia) 2,400 mg PRN QHS PRN PO CONSTIPATION 02/26/22 14:15 Nicotine (Nicoderm Cq 21mg Patch) 1 patch DAILY TD 02/26/22 15:00 03/20/22 08:16 Diltiazem HCl (Cardizem) 90 mg Q6HRS PO 02/26/22 18:00 02/27/22 05:27 DC 02/26/22 17:31 Enoxaparin Sodium (Lovenox 40mg Syringe) 40 mg DAILY SQ 02/27/22 09:00 03/12/22 13:38 DC 03/12/22 08:37 Acetaminophen/ Hydrocodone Bitart (Lortab 5/325) 1 tab PRN Q4HRS PRN PO MOD-SEV PAIN 02/26/22 15:45 03/20/22 08:23 Albuterol/ Ipratropium (Combivent Respimat 20-100 Mcg) 1 puff Q6HRS INH 02/26/22 18:00 02/27/22 05:27 DC 02/26/22 21:08 Levofloxacin (Levaquin) 750 mg DAILY PO 02/27/22 09:00 03/01/22 08:59 DC 02/28/22 08:26 Metoprolol Tartrate (Lopressor) 50 mg BID PO 02/26/22 21:00 03/20/22 21:03 Olanzapine (ZyPREXA ZYDIS) 5 mg PRN Q6HRS PRN PO ANXIETY / AGITATION 02/26/22 15:45 03/11/22 04:45 Albuterol Sulfate (Ventolin Hfa Inhaler) 1 puff PRN Q6HRS PRN INH SOA 02/26/22 16:30 03/02/22 12:53 Aspirin (Aspirin Enteric Coated) 162 mg DAILY PO 02/27/22 09:00 03/20/22 08:17 Pantoprazole Sodium (Protonix) 40 mg DAILYAC PO 02/27/22 07:30 03/20/22 08:18 Nicotine (Nicoderm Cq 21mg Patch) 1 patch DAILY TD 02/27/22 09:00 02/26/22 16:13 DC Diltiazem HCl (Cardizem) 90 mg QID PO 02/27/22 09:00 03/01/22 16:54 DC 03/01/22 16:19 Albuterol/ Ipratropium (Combivent Respimat 20-100 Mcg) 1 puff QID INH 02/27/22 09:00 03/20/22 21:03 Lactobacillus Rhamnosus (Culturelle) 1 cap BID PO 02/28/22 09:00 03/20/22 21:03 Quetiapine Fumarate (SEROquel) 25 mg 0900,1300,1700 PO 03/01/22 09:00 03/10/22 18:33 DC 03/10/22 16:36 Diltiazem HCl (Cardizem) 60 mg QID PO 03/01/22 17:00 03/01/22 17:02 DC Cetirizine HCl (ZyrTEC) 10 mg DAILY PO 03/02/22 09:00 03/20/22 08:18 Diltiazem HCl (Cardizem) 60 mg QID PO 03/01/22 21:00 03/20/22 21:05 Mirtazapine (Remeron) 7.5 mg QHS PO 03/01/22 21:00 03/09/22 16:57 DC 03/08/22 21:11 Sertraline HCl (Zoloft) 25 mg DAILY PO 03/03/22 09:00 03/11/22 17:16 DC 03/11/22 08:12 Methylphenidate HCl (Methylphenidate HCl) 20 mg BIDACBL PO 03/05/22 07:30 03/13/22 15:39 DC 03/13/22 12:19 Melatonin (Melatonin) 3 mg PRN QHS PRN PO 1ST CHOICE INSOMNIA 03/05/22 22:00 03/20/22 21:04 Trazodone HCl (Desyrel) 50 mg PRN QHS PRN PO 2ND CHOICE INSOMNIA, MR x1 03/08/22 21:00 03/16/22 18:07 DC 03/15/22 00:42 Mirtazapine (Remeron) 15 mg QHS PO 03/09/22 21:00 03/20/22 21:04 Quetiapine Fumarate (SEROquel) 25 mg 0900,1700 PO 03/11/22 09:00 03/20/22 17:09 Sertraline HCl (Zoloft) 50 mg DAILY PO 03/12/22 09:00 03/20/22 08:18 Methylphenidate HCl (Methylphenidate HCl) 30 mg BIDACBL PO 03/14/22 07:30 03/20/22 12:04 Sodium Chloride (Saline Mist Nasal) 1 omer PRN Q1HR PRN NS NASAL CONGESTION 03/16/22 15:00 03/20/22 08:16 Trazodone HCl (Desyrel) 100 mg PRN QHS PRN PO 2ND CHOICE INSOMNIA, MRx1 03/16/22 18:15 03/18/22 22:52 Amoxicillin/ Clavulanate Potassium (Augmentin 875/ 125mg) 1 tab BID PO 03/20/22 21:00 03/29/22 23:00 03/20/22 21:04 Current Medications Medications (Trade) Dose Ordered Sig/Sameer Route PRN Reason Start Time Stop Time Status Last Admin Dose Admin Amoxicillin/ Clavulanate Potassium (Augmentin 875/ 125mg) 1 tab BID PO 03/20/22 21:00 03/29/22 23:00 03/20/22 21:04 I have reviewed the current psychotropics carefully including drug interactions. Risk benefit ratio favors no change other than as noted in my dictated progress note. 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
--- NOTE | 2022-03-20 23:15 | NUR ---
Patient is located in his room on assumption of care. He is quiet and remains withdrawn to his room unless he needs something. He has been more polite and appreciative in his interactions with staff. He complained of lower back pain and requested Tylenol, which he received with his HS meds. He has had no agitated behaviors, voiced no delusions or hallucinations this shift. Patient has been compliant with wearing his O2 via NC while in bed. At present time, he is asleep. Will continue to monitor.
[2022-03-21] MEDS: HYDROcodone/APAP 5/325MG 1 TAB TABLET PO PRN (01:54)
--- NOTE | 2022-03-21 03:34 | PN ---
DATE: 03/20/2022 SUBJECTIVE: The patient was seen today upon the nursing staff request as the patient has been complaining of cough with greenish sputum. He also complained of shortness of breath, but denied any chest pain. Denied any hemoptysis. Denied any chills, rigors, or fever. PHYSICAL EXAMINATION: GENERAL: When I examined him, he was sitting at the edge of the bed, slightly tachypneic, somewhat pale, not jaundiced, cyanosed, no lymphadenopathy, no thyromegaly, no jugular venous distention. No limb edema. VITAL SIGNS: His heart rate was 60, blood pressure was 132/80, temperature was 98, respiratory rate was 20 and oxygen saturation was 93% on 3 liters of oxygen by nasal cannula. HEAD, EYES, EARS, NOSE AND THROAT: Normocephalic, atraumatic. NECK: Supple. HEART: Showed normal first and second heart sounds. No gallop, rub or murmur. CHEST: Shows central trachea, equally reduced expansion, reduced air entry, vesicular breath sounds, bilateral scattered rhonchi, and a few basal crepitation mostly on the left side posteriorly. ABDOMEN: Distended, soft, nontender. NEUROLOGIC: He was grossly intact. LABORATORY DATA: As of this morning showed a white cell count of 8.2, hemoglobin 12, hematocrit 38, MCV 90 and platelet count 249,000 with normal manual differential. His chemistry showed a serum sodium 138, potassium 3.7, chloride 103, bicarbonate 27, anion gap of 8, BUN 15, creatinine 0.7. Estimated GFR was 180 mL per minute. His glucose was 96, calcium was 9.1. Total bilirubin, AST, ALT, alkaline phosphatase were normal. Total protein 7, albumin 2.6, has had a chest x-ray, which basically showed that the patient has left lower lobe interstitial infiltrate. He has stable prominent chronic silhouette and large hiatal hernia. ASSESSMENT AND PLAN: The plan is to start the patient on oral Augmentin 875/125 mg 1 tablet twice a day with food for 10 days. His other medical problems include atrial fibrillation, chronic pain syndrome, obstructive sleep apnea, narcolepsy, pneumonia, congestive heart failure. MIKE DR: Joey TID: [id number]
[2022-03-21 06:02] VITALS: BP 158/83
[2022-03-21] MEDS: NICOTINE 21MG PATCH. TD SCH (07:30)
[2022-03-21] MEDS: QUEtiapine 25 MG TABLET. PO SCH ×2 (07:31→17:00)
[2022-03-21] MEDS: CETIRIZINE HCL 10 MG TABLET PO SCH (07:31)
[2022-03-21] MEDS: dilTIAZem HCL 30 MG TABLET PO SCH ×4 (07:31→20:35)
[2022-03-21] MEDS: AMOXICILLIN/K CLAV 875/125MG TABLET. PO SCH ×2 (07:31→20:31)
[2022-03-21] MEDS: ASPIRIN ENTERIC COATED 81 MG TABLET.DR. PO SCH (07:31)
[2022-03-21] MEDS: PANTOPRAZOLE 40 MG TABLET. PO SCH (07:31)
[2022-03-21] MEDS: METOPROLOL TART IMMED RELEASE 50 MG TABLET PO SCH ×2 (07:31→20:31)
[2022-03-21] MEDS: IPRATROPIUM/ALBUTEROL 20/100mcg/INH INHALER. INH SCH ×4 (07:32→20:31)
[2022-03-21] MEDS: SERTRALINE 50 MG TABLET. PO SCH (07:32)
[2022-03-21] MEDS: LACTOBACILLUS RHAMNOSUS GG 1 CAPSULE. PO SCH ×2 (07:32→20:31)
[2022-03-21] MEDS: METHYLPHENIDATE HCL 5 MG TABLET PO SCH ×2 (07:33→11:30)
--- NOTE | 2022-03-21 08:33 | PDOC ---
Exam Note: Christiano Note: This note is a late entry for 03/20/2022 covers elements not covered in my initial note. Subjective: The patient was seen individually on 03/20/2022, discussed and reviewed the chart with Suze BEATTY. The patient slept 6-1/2 hours previous night. I met with him in his room. He has been more awake during the day but he does seemed to have left lower lobe pneumonia. We will defer treatment to Dr. Saavedra. Review of Systems: Impaired ambulation in wheelchair. No CV, , pulmonary, eye system symptoms on review. Positive for some tiredness. Mental Status Exam: Patient is oriented to himself and situation. Speech coherent. Abstraction fair. Computation impaired. Language function intact. Mood and affect improved. Laboratory Data: Reviewed. Impression: Bipolar 1 disorder, mixed with psychotic features. Major neurocognitive disorder, Alzheimer, vascular with delusion. Obstructive sleep apnea and narcolepsy. Plan: Continue rest psychotropics unchanged. Reviewed drug interactions and risk-benefit ratio. Dr. Alba will cover for me from 03/21/2022 until 0 04/07/2022. Assessment: Vital Signs/I&O: Vital Signs Date Time Temp Pulse Resp B/P (MAP) Pulse Ox O2 Delivery O2 Flow Rate FiO2 03/21/22 07:31 60 158/83 03/21/22 06:02 97.0 20 94 03/20/22 06:23 Room Air I & O 03/20/22 03/20/22 03/21/22 15:00 23:00 07:00 Intake Total 960 ml 720 ml Balance 960 ml 720 ml Current Medications: Meds: Current Medications Medications (Trade) Dose Ordered Sig/Sameer Route PRN Reason Start Time Stop Time Status Last Admin Dose Admin Amoxicillin/ Clavulanate Potassium (Augmentin 875/ 125mg) 1 tab BID PO 03/20/22 21:00 03/29/22 23:00 03/21/22 07:31 I have reviewed the current psychotropics carefully including drug interactions. Risk benefit ratio favors no change other than as noted in my dictated progress note. 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
[2022-03-21 15:46] VITALS: BP 121/83
--- NOTE | 2022-03-21 16:49 | NUR ---
Pt up in wc for meals. In room rest of time. Has been compliant with meds and cares. Pt was asking Dr Alba if he could go home.
[2022-03-21] MEDS: MIRTAZAPINE 15 MG TABLET PO SCH (20:33)
[2022-03-21] MEDS: MELATONIN 3 MG TABLET PO PRN (20:34)
[2022-03-21] MEDS: ACETAMINOPHEN 325 MG TABLET PO PRN (20:34)
--- NOTE | 2022-03-22 00:40 | PN ---
DATE: 03/21/2022 SUBJECTIVE: The patient was seen today, met with the staff, chart reviewed and also covering for Dr. Ann. The patient continues to be depressed, withdrawn, but cooperative and medication compliant. The patient is wanting to leave and apparently not comfortable staying here in the hospital. The patient apparently has trust issues, not trusting anyone. OBSERVATION: VITAL SIGNS: Temperature 97.0, blood pressure 158/83, pulse 60. CURRENT MEDICATIONS: Include trazodone 100 mg at night p.r.n., methylphenidate 30 mg twice a day for his sleep apnea and narcolepsy, Zoloft 50 mg daily, Seroquel 25 mg twice a day, mirtazapine 15 mg at night, melatonin 3 mg at night p.r.n. and also olanzapine 5 mg q. 6 hours p.r.n. The patient apparently having significant mood swings, high level of anxiety, restless and also some emotional lability. LABORATORY DATA: The patient's lab reviewed. ASSESSMENT: 1. Bipolar disorder, mixed with psychotic features. 2. Major neurocognitive disorder. 3. 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 PLAN: Continue with the current treatment plan. LENGTH OF STAY: Five to seven days. ANDREAS DR: Felipa TID: [id number]
[2022-03-22 06:13] VITALS: BP 150/99
[2022-03-22] MEDS: AMOXICILLIN/K CLAV 875/125MG TABLET. PO SCH ×2 (08:11→19:54)
[2022-03-22] MEDS: CETIRIZINE HCL 10 MG TABLET PO SCH (08:11)
[2022-03-22] MEDS: LACTOBACILLUS RHAMNOSUS GG 1 CAPSULE. PO SCH ×2 (08:11→19:54)
[2022-03-22] MEDS: NICOTINE 21MG PATCH. TD SCH (08:11)
[2022-03-22] MEDS: QUEtiapine 25 MG TABLET. PO SCH ×2 (08:11→17:00)
[2022-03-22] MEDS: METOPROLOL TART IMMED RELEASE 50 MG TABLET PO SCH ×2 (08:11→19:55)
[2022-03-22] MEDS: PANTOPRAZOLE 40 MG TABLET. PO SCH (08:12)
[2022-03-22] MEDS: SERTRALINE 50 MG TABLET. PO SCH (08:12)
[2022-03-22] MEDS: IPRATROPIUM/ALBUTEROL 20/100mcg/INH INHALER. INH SCH ×4 (08:12→19:53)
[2022-03-22] MEDS: ASPIRIN ENTERIC COATED 81 MG TABLET.DR. PO SCH (08:12)
[2022-03-22] MEDS: dilTIAZem HCL 30 MG TABLET PO SCH ×4 (08:12→19:55)
[2022-03-22] MEDS: METHYLPHENIDATE HCL 5 MG TABLET PO SCH ×2 (08:13→11:30)
--- NOTE | 2022-03-22 10:00 | NUR ---
Pt sitting on bed hyperventilating. Pt refuses to put O2 on. States his nose is running to much. Calling the staff stupid for asking. Pt has HX of CHF, COPD and acute resp failure in February. Sat 91-95%. Dr Saavedra ordered ABG. RT here. She also listened to lungs and pt is course throughout. RT asked pt if he would be agreeable to a BiPap if needed and pt stated he didn't know. Pt also voided 350 cc and was bladder scanned. Machine showed 900 cc. Pt AF at this time. C/O being cold. Thermostat turned up to 78.
[2022-03-22 10:02] LABS: BGAS PH 7.44 (7.35-7.46)
[2022-03-22] MEDS ORDERED: FUROSEMIDE 40 MG TABLET PO ONE (11:00)
--- NOTE | 2022-03-22 11:15 | NUR ---
ABG's indicate pt needs to wear his O2. Refused to be straight cathed for possible retention. Dr Saavedra informed of results. Gave pt Lasix x1 and zydis as pt is extremely anxious.
[2022-03-22 15:38] VITALS: BP 105/68
--- NOTE | 2022-03-22 16:45 | NUR ---
Dr montoya to see pt in afternoon. Pts lungs more clear. Pt drowsy. Are poorly for lunch. Will continue to monitor.
[2022-03-22] MEDS: ALBUTEROL SULFATE 8GM INHALER. INH PRN (19:53)
[2022-03-22] MEDS: SODIUM CHLORIDE 0.65% NASAL SPRAY 45ML BOTTLE. NS PRN (19:53)
[2022-03-22] MEDS: MELATONIN 3 MG TABLET PO PRN (19:54)
[2022-03-22] MEDS: ACETAMINOPHEN 325 MG TABLET PO PRN (19:54)
[2022-03-22] MEDS: MIRTAZAPINE 15 MG TABLET PO SCH (19:54)
--- NOTE | 2022-03-22 23:59 | PN ---
DATE: 03/22/2022 SUBJECTIVE: The patient was seen today, met with the staff. Chart reviewed and also covering for Dr. Ann. Staff reports increased depression, blunting of affect, but cooperative. He is also withdrawn to his room and is medication compliant. The patient is constantly wanting to be discharged. OBSERVATION: VITAL SIGNS: Temperature 97.5, blood pressure 150/99, pulse 72, respirations 24, O2 sat 91. GENERAL: Slept about 6 hours last night. CURRENT MEDICATIONS: Include trazodone 100 mg at night p.r.n., methylphenidate 30 mg twice a day, Zoloft 50 mg daily, Seroquel 25 mg twice a day, mirtazapine 15 mg at night, and melatonin 3 mg at night and also olanzapine 5 mg q.6 hours p.r.n. The patient continues to have mood swings, increased anxiety, restlessness and constant rocking movements. LABORATORY DATA: Reviewed. ASSESSMENT: 1. Bipolar disorder, mixed with psychotic features. 2. Major neurocognitive disorder. 3. 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 PLAN: To continue with treatment. LENGTH OF STAY: Five days. SEDRICK DR: Felipa TID: [id number]
[2022-03-23 05:53] VITALS: BP 130/85
[2022-03-23] MEDS: LACTOBACILLUS RHAMNOSUS GG 1 CAPSULE. PO SCH ×2 (08:16→20:50)
[2022-03-23] MEDS: METHYLPHENIDATE HCL 5 MG TABLET PO SCH ×2 (08:16→12:05)
[2022-03-23] MEDS: AMOXICILLIN/K CLAV 875/125MG TABLET. PO SCH ×2 (08:17→20:49)
[2022-03-23] MEDS: PANTOPRAZOLE 40 MG TABLET. PO SCH (08:17)
[2022-03-23] MEDS: dilTIAZem HCL 30 MG TABLET PO SCH ×4 (08:17→20:50)
[2022-03-23] MEDS: METOPROLOL TART IMMED RELEASE 50 MG TABLET PO SCH ×2 (08:17→20:50)
[2022-03-23] MEDS: SERTRALINE 50 MG TABLET. PO SCH (08:17)
[2022-03-23] MEDS: ASPIRIN ENTERIC COATED 81 MG TABLET.DR. PO SCH (08:18)
[2022-03-23] MEDS: QUEtiapine 25 MG TABLET. PO SCH ×2 (08:18→17:14)
[2022-03-23] MEDS: NICOTINE 21MG PATCH. TD SCH (08:19)
[2022-03-23] MEDS: CETIRIZINE HCL 10 MG TABLET PO SCH (08:19)
[2022-03-23] MEDS: IPRATROPIUM/ALBUTEROL 20/100mcg/INH INHALER. INH SCH ×4 (08:21→20:49)
--- NOTE | 2022-03-23 11:41 | NUR ---
Nsg Note; Jeramie came to the dining room for breakfast which he fed to himself and was med compliant with his meds whole floated on applesauce. He returned to his room immediately and went back to bed wearing his O2 with mask. I encouraged him to come to the dayroom but he refused
[2022-03-23 15:51] VITALS: BP 139/85
--- NOTE | 2022-03-23 17:46 | NUR ---
Nsg Note; Jeramie slept this afternoon, waking easily for afternoon meds. He is SOA with activity and uses his oxygen while he is in his room. He came to the dining for each meal, but returned to his room and would not come to the dayroom. He states he is ready to return home.
[2022-03-23] MEDS: MIRTAZAPINE 15 MG TABLET PO SCH (20:50)
[2022-03-23] MEDS: HYDROcodone/APAP 5/325MG 1 TAB TABLET PO PRN (21:10)
--- NOTE | 2022-03-24 00:27 | NUR ---
Pt was lying in bed when med pass and assessment completed. A&O x 4, flat affect, cooperative with care. HS medication given whole floated in applesauce. Noted SOB, rocking back and forth in his bed. Complained of back pain rated 8/10, with anxiety. Pt wearing simple mask with O2 5 liters. O2 sat 94%. Given Lortab and Zydis at 2110; pain reduced within 30 minutes. Resting with eyes closed at this time.
[2022-03-24 06:14] VITALS: BP 140/78
[2022-03-24] MEDS: ASPIRIN ENTERIC COATED 81 MG TABLET.DR. PO SCH (08:04)
[2022-03-24] MEDS: LACTOBACILLUS RHAMNOSUS GG 1 CAPSULE. PO SCH ×2 (08:04→20:48)
[2022-03-24] MEDS: CETIRIZINE HCL 10 MG TABLET PO SCH (08:04)
[2022-03-24] MEDS: METHYLPHENIDATE HCL 5 MG TABLET PO SCH ×2 (08:04→11:30)
[2022-03-24] MEDS: PANTOPRAZOLE 40 MG TABLET. PO SCH (08:04)
[2022-03-24] MEDS: dilTIAZem HCL 30 MG TABLET PO SCH ×4 (08:04→20:49)
[2022-03-24] MEDS: SERTRALINE 50 MG TABLET. PO SCH (08:04)
[2022-03-24] MEDS: IPRATROPIUM/ALBUTEROL 20/100mcg/INH INHALER. INH SCH ×4 (08:05→21:04)
[2022-03-24] MEDS: QUEtiapine 25 MG TABLET. PO SCH ×2 (08:05→16:21)
[2022-03-24] MEDS: AMOXICILLIN/K CLAV 875/125MG TABLET. PO SCH ×2 (08:05→20:49)
[2022-03-24] MEDS: METOPROLOL TART IMMED RELEASE 50 MG TABLET PO SCH ×2 (08:05→20:49)
[2022-03-24] MEDS: NICOTINE 21MG PATCH. TD SCH (08:51)
--- NOTE | 2022-03-24 09:28 | PN ---
DATE: 03/23/2022 SUBJECTIVE: The patient was seen today, met with the staff and chart reviewed. The patient continues to have physical problems. He is on continuous oxygen. The patient also complains of having difficulty breathing. The patient stays in bed most of the time. The patient also experiencing intense anxiety at times. OBSERVATION: VITAL SIGNS: Temperature 97.9, blood pressure 130/85, pulse 74, respirations 24, O2 sat 93%. GENERAL: Slept about 5 hours last night. The patient's appetite is fair. CURRENT MEDICATIONS: Include trazodone 100 mg at night p.r.n., methylphenidate 30 mg twice a day, Zoloft 50 mg daily, Seroquel 25 mg twice a day, mirtazapine 15 mg at night, melatonin 3 mg at night p.r.n. and olanzapine 5 mg q. 6 hours p.r.n. The patient is not having any side effects to medications. LABORATORY DATA: The patient's lab reviewed. ASSESSMENT: 1. Bipolar disorder, mixed with psychotic features. 2. Major neurocognitive disorder. 3. 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 PLAN: Continue with treatment. LENGTH OF STAY: [address]: Felipa TID: [id number] [facility]
--- NOTE | 2022-03-24 09:29 | NUR ---
Pt A&Ox3, withdrawn and presents with a depressed affect. He is compliant with medications floated in applesauce. Nicotine patch applied to L posterior shoulder. While in his room he is observed to be breathing heavily and rocking back and forth, lungs coarse to auscultation. O2 at 5 LPM via mask is running, however pt intermittently wears it. Education provided about importance of O2 compliance. Pt continues on ABT, no adverse reactions noted. Pt denies SI/HI/VH/AH/delusions/pain at this time. He is appropriate on the unit and absent of disruptive behaviors. Plan of care continues, will pass to next shift.
[2022-03-24 12:15] VITALS: BP 113/66
[2022-03-24 16:04] VITALS: BP 138/83
--- NOTE | 2022-03-24 18:40 | NUR ---
At approx 1345 pt requested a phone conversation with ANTONELLA. This nurse called and left a voice message requesting a call back. ANTONELLA called back a few minutes later and reported that pt had already called her 15 minutes prior and left a voice message asking her for details about his d/c planning. ANTONELLA states that she does not have any new or pertinent information regarding d/c from . When asked if she would like to talk to pt she replied that she did not because her lack of new information could only frustrate him. When asked if she wanted him to know that she returned the call to [facility] she declined. At approx 1830 pt arrived to the nurse station frustrated that ANTONELLA "hasn't called back" and was wanting to use the phone again to call her. This nurse tried to encourage patience and to not keep pressuring ANTONELLA or interrupting her day since both he and I have already left her voice messages. Pt departed from nurse station frustrated.
[2022-03-24] MEDS: MIRTAZAPINE 15 MG TABLET PO SCH (20:48)
--- NOTE | 2022-03-24 21:39 | NUR ---
Patient spends most of his time in his room. He is currently on antibiotics for pneumonia and is reporting that he "feels a little better", he still has course lung sounds and appears to be breathing harder than usual. Patient was using oxygen via face mask when nurse entered the room for assessment and medications. Patient reported that he has had two episodes of diarrhea this day. He asked nurse if he could call his DPOA regarding his discharge. Day nurse had told this nurse that patient already left a message for the DPOA and that when DPOA called back she did not wish to talk to patient because he just nags her about discharging. This nurse told the patient that we weren't going to call the DPOA tonight as he had already left a message for them earlier. He accepted that answer.
[2022-03-25 05:26] VITALS: BP 160/79
--- NOTE | 2022-03-25 06:32 | PN ---
DATE: 03/24/2022 SUBJECTIVE: The patient was seen today, met with the staff. Chart reviewed and covering for Dr. Ann. Staff reports he is withdrawn, depressed, stays in his room and medication compliant. The patient also emotional, labile at times, talkative, but no major behavior problems except occasionally he tend to become more vocal and aggressive. OBSERVATION: VITAL SIGNS: Temperature 97.1, blood pressure 138/83, pulse 66, respirations 16, O2 sat 93%. GENERAL: Slept about 7 hours last night. CURRENT MEDICATIONS: Trazodone 100 mg at night p.r.n., methylphenidate 30 mg twice a day, Zoloft 50 mg daily, Seroquel 25 mg twice a day, mirtazapine 15 mg at night, melatonin 3 mg at night p.r.n. and olanzapine 5 mg q. 6 hours p.r.n. The patient is not having any side effects. LABORATORY DATA: The patient's lab reviewed. ASSESSMENT: 1. Bipolar disorder, mixed with psychotic features. 2. Major neurocognitive disorder. 3. 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 PLAN: To continue with treatment. LENGTH OF STAY: Five to seven days. ALEXEI DR: Felipa TID: [id number] [facility]
[2022-03-25] MEDS: AMOXICILLIN/K CLAV 875/125MG TABLET. PO SCH ×2 (08:29→21:05)
[2022-03-25] MEDS: CETIRIZINE HCL 10 MG TABLET PO SCH (08:29)
[2022-03-25] MEDS: SERTRALINE 50 MG TABLET. PO SCH (08:29)
[2022-03-25] MEDS: LACTOBACILLUS RHAMNOSUS GG 1 CAPSULE. PO SCH ×2 (08:29→21:06)
[2022-03-25] MEDS: PANTOPRAZOLE 40 MG TABLET. PO SCH (08:30)
[2022-03-25] MEDS: METOPROLOL TART IMMED RELEASE 50 MG TABLET PO SCH ×2 (08:30→21:06)
[2022-03-25] MEDS: dilTIAZem HCL 30 MG TABLET PO SCH ×4 (08:30→21:05)
[2022-03-25] MEDS: IPRATROPIUM/ALBUTEROL 20/100mcg/INH INHALER. INH SCH ×4 (08:31→21:06)
[2022-03-25] MEDS: METHYLPHENIDATE HCL 5 MG TABLET PO SCH ×2 (08:31→12:36)
[2022-03-25] MEDS: SODIUM CHLORIDE 0.65% NASAL SPRAY 45ML BOTTLE. NS PRN (08:31)
[2022-03-25] MEDS: ASPIRIN ENTERIC COATED 81 MG TABLET.DR. PO SCH (08:31)
[2022-03-25] MEDS: NICOTINE 21MG PATCH. TD SCH (08:32)
[2022-03-25] MEDS: QUEtiapine 25 MG TABLET. PO SCH ×2 (08:37→17:01)
--- NOTE | 2022-03-25 11:58 | NUR ---
MELISSA returned call to Nicolasa, pt dtr in-law/DPOA and discussed the conversation had with pt on Wednesday. Nicolasa noted that the conversations they had with pt over the weekend were very similar. Pt noted with his son that he would just walk out or could call someone to pick him up. The family will concede and let pt go home. MELISSA noted that she will setup as many services as possible (e.g. doctors, HH, private duty), as well as complete a state hotline for safety concerns. Nicolasa noted that they are out of town until Wednesday and know that pt would not be willing to wait until the return home. MELISSA was told that pt does have Medicaid and pt may be able to use his Medicaid for transportation. MELISSA will follow up and make sure to notify Nicolasa of transport time.
[2022-03-25 16:02] VITALS: BP 117/80
--- NOTE | 2022-03-25 18:05 | NUR ---
Nurse note: Patient is alert and oriented x 4. He is compliant with assessment and taking his medications whole floated in applesauce. He flat, calm, depressed and withdrawn to room. He is cooperative with the staff. He stays to himself in his room most of the day but [facility] in the hallway to use the phone. He does go to the dining room for meals. He is very anxious about leaving. His discharge is tomorrow and he has been trying to find a ride home. If he does not get a ride, he knows that Kristy will arrange a ride for him. He denies A/V hallucinations; no delusions noted. Patient is able to make needs known. Will continue to monitor.
[2022-03-25] MEDS: MIRTAZAPINE 15 MG TABLET PO SCH (21:05)
--- NOTE | 2022-03-25 22:59 | NUR ---
Patient came to the nurses station asking for more blankets and yelling that we are trying to freeze him. Nurse got patient a blanket from the blanket warmer and put it over him in bed. Patient was compliant with HS medications however he was not using oxygen and when this nurse mentioned it he said "i don't need it". Patient continues on antibiotic for pneumonia. Lungs are still coarse and diminished. Patient states he will be glad to discharge tomorrow and get out of here. He plans to discharge to his own house.
[2022-03-26] MEDS ORDERED: ACET325T9 PO (00:34)
[2022-03-26] MEDS ORDERED: AMOX1TAB61 PO (00:37)
[2022-03-26] MEDS ORDERED: CETI10TA74 PO (00:40)
[2022-03-26] MEDS ORDERED: LACT1CAP21 PO (00:42)
[2022-03-26] MEDS ORDERED: MAG355OR16 PO (00:45)
[2022-03-26] MEDS ORDERED: MELA3TAB43 PO (00:46)
[2022-03-26] MEDS ORDERED: MAGN24003 PO (00:46)
[2022-03-26] MEDS ORDERED: METH99.22 TP (00:48)
[2022-03-26] MEDS ORDERED: METH10TA10 PO (00:50)
[2022-03-26] MEDS ORDERED: MIRT-37 PO (00:53)
[2022-03-26] MEDS ORDERED: PANT40TA6 PO (00:55)
[2022-03-26] MEDS ORDERED: QUET25TA5 PO (00:58)
[2022-03-26] MEDS ORDERED: SERT50TA PO (00:59)
[2022-03-26] MEDS ORDERED: SODI30SP NS (01:01)
[2022-03-26] MEDS ORDERED: TRAZ-125 PO (01:02)
--- NOTE | 2022-03-26 03:47 | PN ---
DATE: 03/25/2022 SUBJECTIVE: The patient was seen today, met with the staff. Chart reviewed. I am covering for Dr. Ann. Staff reports no major behavior problems except for emotional lability, irritability, and also having mood swings and occasional episodes of being hyperverbal and aggressive behaviors. OBSERVATION: VITAL SIGNS: Temperature 98.1, blood pressure 160/79, pulse 76, respirations 22, O2 sat 91%. Slept about 2 hours last night. LABORATORY DATA: The patient's lab reviewed. CURRENT MEDICATIONS: Trazodone 100 mg at night p.r.n., methylphenidate 30 mg twice a day, Zoloft 50 mg daily, Seroquel 25 mg twice a day, mirtazapine 15 mg at night, and melatonin 3 mg at night p.r.n. and olanzapine 5 mg q. 6 hours p.r.n. The patient denies of any side effects to medications. ASSESSMENT: 1. Bipolar disorder, mixed with psychotic feature. 2. Major neurocognitive disorder. 3. 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 PLAN: To continue with the treatment. The patient wanting to leave the hospital tomorrow and long term care social worker working with the family with regard to the plans. EDWIN DR: Felipa TID: [id number]
[2022-03-26] MEDS: ACETAMINOPHEN 325 MG TABLET PO PRN ×3 (05:15→20:08)
[2022-03-26 05:46] VITALS: BP 193/136
[2022-03-26] MEDS: NICOTINE 21MG PATCH. TD SCH (08:14)
[2022-03-26] MEDS: METHYLPHENIDATE HCL 5 MG TABLET PO SCH ×2 (08:15→12:09)
[2022-03-26] MEDS: CETIRIZINE HCL 10 MG TABLET PO SCH (08:15)
[2022-03-26] MEDS: LACTOBACILLUS RHAMNOSUS GG 1 CAPSULE. PO SCH ×2 (08:15→20:09)
[2022-03-26] MEDS: ASPIRIN ENTERIC COATED 81 MG TABLET.DR. PO SCH (08:15)
[2022-03-26] MEDS: QUEtiapine 25 MG TABLET. PO SCH ×2 (08:15→17:35)
[2022-03-26] MEDS: AMOXICILLIN/K CLAV 875/125MG TABLET. PO SCH ×2 (08:15→20:08)
[2022-03-26] MEDS: IPRATROPIUM/ALBUTEROL 20/100mcg/INH INHALER. INH SCH ×4 (08:16→20:09)
[2022-03-26] MEDS: PANTOPRAZOLE 40 MG TABLET. PO SCH (08:16)
[2022-03-26] MEDS: SERTRALINE 50 MG TABLET. PO SCH (08:18)
[2022-03-26] MEDS: dilTIAZem HCL 30 MG TABLET PO SCH ×4 (08:19→20:09)
[2022-03-26] MEDS: METOPROLOL TART IMMED RELEASE 50 MG TABLET PO SCH ×2 (08:20→20:08)
--- NOTE | 2022-03-26 11:49 | NUR ---
MELISSA contacted Medicaid to set pt up for transport. The Medicaid patient representative informed SW that pt Medicaid is inactive. SW questioned if it was just the transportation aspect and SW was told that it was pt overall Medicaid that was not active. MELISSA will follow up with this on pt insurance and the family.
--- NOTE | 2022-03-26 11:54 | NUR ---
MELISSA contacted pt dtr in law/DPOA, Nicolasa, re: SW attempt to set up transportation for pt through Medicaid and finding out that his Medicaid is inactive. Nicolasa was not aware of this and will look into it further. She noted that a friend said he could pick him up but not until Wednesday. MELISSA requested that Nicolasa call pt's friend and ask for a time to ensure that pt is ready to go versus them showing up and having to wait.
--- NOTE | 2022-03-26 12:47 | NUR ---
MELISSA received call from pt dtr in law/DPOA, Nicolasa, to inform MELISSA that pt friend Polo Menard will pick pt up tomorrow around 1030.
--- NOTE | 2022-03-26 14:08 | NUR ---
[facility] received a phone call from an individual who identified themselves as "Hayden" and requested to talk to pt. The individual stated that pt had called them and informed them that he was here. Individual did not have a passcode and so staff did not confirm/deny the presence of pt on the unit. This nurse contacted [facility] to inquire if she knew of an individual named "Hayden," and she replied that she did not. When asked if she was okay with pt having communications with "Hayden" she replied, "I guess, he's going to discharge soon but it doesn't really matter." While [facility] does not mind concerning communications, this particular individual still does not have the passcode as they do not know [facility] to be able to obtain it. Message left with MELISSA for further guidance. Pt's assigned nurse notified. Addendum: 03/26/22 at 1557 by ANDREW SALAMANCA RN Addendum: Spoke with MELISSA, who clarified that pt was given liberal phone use 03/25/22 to contact friends/acquaintances and try to obtain a ride home after d/c.
--- NOTE | 2022-03-26 15:04 | NUR ---
Nursing note: Pt c/o 06/17 hip pain. PRN tylenol given. Pt's primary nurse notified.
[2022-03-26 16:02] VITALS: BP 112/75
--- NOTE | 2022-03-26 17:21 | NUR ---
[facility] Social Work Discharge Planning Form Patient Name LARISSA VOGEL Admit Date: 26 February 2022 DISCHARGE PLAN Discharge Destination: Pt to discharge home with services Care Assessment: N/A Level II Assessment: N/A Transportation: Pt family friend to pick pt up around 1030AM. Special Instructions/Notes: Please fax discharge orders, discharge medication and discharge summary to the fax number(s) listed below. Pt cannot recall his primary care physician name and refuses other services. DISCHARGE TO HOME: Address: [address] [place] [address]; [place] [address] Responsible Republican: Polo Salas Pharmacy: [facility] Contact Information: [address] [place] [address] Caregiver Services: [facility] Contact Information: [address], [place] [address] Home Health: [facility]Note 3[facility] Home Health Contact Information: [address] [place] [address] Appointment: Within 48 hours of discharge.
--- NOTE | 2022-03-26 17:44 | NUR ---
Nsg Note; though disappointed, Jeramie took the news that we were unable to arrange transport for today and that his discharged is delayed until tomorrow am. He is A&O x3 and able to follow directions and communicate his needs. He is med compliant with whole meds floated in applesauce. He transfers himself from bed to w/c to toilet and self toilets.
[2022-03-26] MEDS: traZODone 100 MG TABLET. PO PRN ×2 (20:08→23:48)
[2022-03-26] MEDS: MIRTAZAPINE 15 MG TABLET PO SCH (20:08)
--- NOTE | 2022-03-26 21:42 | NUR ---
At the beginning of the shift the patient came to the nurses station and told the nurse that he really "wants to get a good night sleep tonight". He stated he has been having troubles sleeping. Nurse has noticed on previous shifts that patient is getting in and out of bed multiple times each night to sit in his wheelchair. Patient reports pain is currently 4/10 in hip and legs. PRN tylenol given for pain per order and patient request. PRN trazodone given for insomnia per patient request. Patient took his oral meds floated in applesauce without difficulty. His lung sounds are still coarse but he reported to nurse that he is "coughing less". Patient was not currently using oxygen while nurse was in the room, he stated he will put it on if he "feels like he needs to".
[2022-03-26] MEDS: MELATONIN 3 MG TABLET PO PRN (23:48)
--- NOTE | 2022-03-27 04:50 | PN ---
DATE: 03/26/2022 SUBJECTIVE: The patient was seen today, met with the staff. Chart was reviewed and covering for Dr. Ann. The patient's behavior improved, less anxious and tense and is looking forward to his discharge tomorrow. Staff reports no major behavior problems. OBSERVATION: VITAL SIGNS: Temperature 98.1, blood pressure 112/75, pulse 74, respirations 20, O2 sat 96%. The patient averages about 4-5 hours sleep at night. MEDICATIONS: Include trazodone 100 mg at night p.r.n., methylphenidate 30 mg twice a day, Zoloft 50 mg daily, Seroquel 25 mg twice a day, mirtazapine 15 mg at night, and melatonin 3 mg at night p.r.n. and olanzapine 5 mg q. 6 hours p.r.n. The patient is not exhibiting any side effects to medications. ASSESSMENT: 1. Bipolar disorder, mixed with psychotic features. 2. Major neurocognitive disorder. 3. 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 PLAN: To continue with treatment. The patient is scheduled for discharge tomorrow. The patient apparently has been asking for discharge and family wants to take him home. ADRIA/MICHAEL DR: Felipa TID: [id number]
[2022-03-27 06:01] VITALS: BP 122/75
[2022-03-27] MEDS: dilTIAZem HCL 30 MG TABLET PO SCH ×2 (08:07→11:55)
[2022-03-27] MEDS: METHYLPHENIDATE HCL 5 MG TABLET PO SCH ×2 (08:07→11:55)
[2022-03-27] MEDS: PANTOPRAZOLE 40 MG TABLET. PO SCH (08:07)
[2022-03-27] MEDS: NICOTINE 21MG PATCH. TD SCH (08:07)
[2022-03-27] MEDS: ASPIRIN ENTERIC COATED 81 MG TABLET.DR. PO SCH (08:07)
[2022-03-27] MEDS: CETIRIZINE HCL 10 MG TABLET PO SCH (08:08)
[2022-03-27] MEDS: AMOXICILLIN/K CLAV 875/125MG TABLET. PO SCH (08:08)
[2022-03-27] MEDS: IPRATROPIUM/ALBUTEROL 20/100mcg/INH INHALER. INH SCH ×2 (08:08→11:55)
[2022-03-27] MEDS: QUEtiapine 25 MG TABLET. PO SCH (08:08)
[2022-03-27] MEDS: SERTRALINE 50 MG TABLET. PO SCH (08:08)
[2022-03-27] MEDS: LACTOBACILLUS RHAMNOSUS GG 1 CAPSULE. PO SCH (08:08)
[2022-03-27] MEDS: METOPROLOL TART IMMED RELEASE 50 MG TABLET PO SCH (08:08)
--- NOTE | 2022-03-27 08:25 | NUR ---
Nsg Note; refused Smoking Cessation phone call
--- NOTE | 2022-03-27 11:23 | NUR ---
[facility] Social Work Discharge Planning Form Patient Name LARISSA VOGEL Admit Date: 26 February 2022 DISCHARGE PLAN Discharge Destination: Pt to discharge home with services Care Assessment: N/A Level II Assessment: N/A Transportation: Pt family friend to pick pt up around 1400. Special Instructions/Notes: Please fax discharge orders, discharge medication and discharge summary to the fax number(s) listed below. Pt cannot recall his primary care physician name and refuses other services. DISCHARGE TO HOME: Address: [address] [place] [address]; [place] [address] Responsible Green Party: Polo Salas Pharmacy: [facility] Contact Information: [address] [place] [address] Primary Care Physician: Amaya Geronimo Contact Information: [address] [place] [address] Appointment: April 02 @ 1:00PM Caregiver Services: [facility] Contact Information: [address] [place] [address] Home Health: [facility] Contact Information: [address] [place] [address] Appointment: Within 48 hours of discharge.
[2022-03-27 11:55] VITALS: BP 122/75
--- NOTE | 2022-03-27 14:27 | NUR ---
Tobacco Discharge Note [facility] Tobacco Hotline called with patient prior to discharge, No- Pt refused to talk with Hotline Tobacco cessation medication listed with current medications for discharge. YES- nicotine patches Transition Record was faxed to follow-up provider with the following elements: Reason for admission, procedures, tests, principal diagnosis, pending studies, patient instructions, 31/05 contact information for unit, phone number to obtain pending test results, plan for follow-up care, physician follow-up, advanced directive information, and medication list with dose, duration and instructions. This information was included in the following documents: History and physical, lab results, study results, progress notes, social work planning form, DC instruction form, patient visit summary, and medication reconciliation form. Date & time record faxed & Record faxed to: Amaya Geronimo [facility] on 03/27/22 at 1248 [facility] on 03/26/22 at 4282 Record discussed with/ report given to [facility] in [place]
--- NOTE | 2022-03-28 23:19 | DS ---
DATE OF DISCHARGE: 03/27/2022 FINAL DIAGNOSES: AXIS I: 1. 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 2. Bipolar disorder, mixed with psychotic features. AXIS II: None. AXIS III: Narcolepsy, obstructive sleep apnea, congestive heart failure, atrial fibrillation and status post femur fracture and chronic pain. REASON FOR ADMISSION: This 81-year-old male was [facility] and he was staying at [facility] for rehabilitation. CHIEF COMPLAINT: "I'm tired." HISTORY OF PRESENT ILLNESS: The patient apparently having problems at the correction, he attempted to elope from the correction and also found him naked with acute mental status changes. He is also paranoid, delusional, increased anxiety and disorganized thinking and also actively hallucinating and refusing medications and care. The patient also has been experiencing mood swings and history of bipolar in the past. The patient apparently has been treated with stimulants including methamphetamine in the past. The patient also recently hallucinating prior to admission. He also grabbed a nurse aggressively. HOSPITAL COURSE: The patient had a physical exam, routine lab work including CBC, chem profile, urinalysis. The patient's hemoglobin was 12.4. The patient's GFR normal. BUN 21. Hemoglobin A1c was 6. BUN and creatinine ratio 20:3. The patient's urinalysis was within normal limits. The patient was involved in treatment including individual therapy, group therapy, activity therapy and the patient was able to participate in some of the activities, but stayed in her room most of the time and exhibiting fluctuating symptoms and also irritable, angry, mood swings. The patient was on Zoloft 50 mg daily, Seroquel 25 mg twice a day, Zyprexa 5 mg q. 6 hours p.r.n., Remeron 15 mg at night, Ritalin 30 mg twice a day and trazodone 100 mg at night p.r.n. He was also on melatonin 3 mg at night p.r.n. The patient did not have any side effects. The patient's behavior has improved. The patient is cognitively improved, not exhibiting any psychotic symptoms, was not expressing any suicidal or homicidal thoughts. The patient decided to leave and family agreed to take him. The patient at the time of discharge, medically stable. RECOMMENDATIONS: The patient to be discharged with the recommendation to continue with her medications and follow up with the primary care and also continued outpatient counseling. OSEI DR: Felipa TID: [id number]
== END 2022-03-27 14:25 | disposition home or self-care (01) | DRG 885 ==
LOC: GEROPSY 14:07
PROVIDERS: ADMIT Psychiatry & Neurology Psychiatry; ATTEND Psychiatry & Neurology Psychiatry
DX: F31.64 Bipolar disorder, current episode mixed, severe, with psychotic features (principal); F01.51 Vascular dementia, unspecified severity, with behavioral disturbance; F02.81 Dementia in other diseases classified elsewhere, unspecified severity, with behavioral disturbance; G93.40 Encephalopathy, unspecified; N39.0 Urinary tract infection, site not specified; F17.200 Nicotine dependence, unspecified, uncomplicated; F41.9 Anxiety disorder, unspecified; G30.9 Alzheimer's disease, unspecified; G47.00 Insomnia, unspecified; G47.33 Obstructive sleep apnea (adult) (pediatric); G47.411 Narcolepsy with cataplexy; G89.4 Chronic pain syndrome; I48.91 Unspecified atrial fibrillation; I50.9 Heart failure, unspecified; Z66 Do not resuscitate; Z79.899 Other long term (current) drug therapy; Z86.718 Personal history of other venous thrombosis and embolism; Z99.81 Dependence on supplemental oxygen
CPT/HCPCS: 36415; 71045; 71046; 73501; 73552; 80053; 80061; 81001; 82306; 82803; 83036; 83540; 83550; 83735; 84436; 84443; 84480; 85025; 85379; 86592; 93005; 94640; 99407; J1650; U0003; 97530